=== PATIENT | female | born 1990 | race Caucasian/White ===

== ENCOUNTER 2021-09-28 18:47 | Observation (INO) | payer OTHER, SELFPAY ==
[2021-09-28 19:14] VITALS: BP 118/72; PULSE 109
[2021-09-28 19:16] VITALS: BP 106/54; PULSE 97
[2021-09-28 19:30] VITALS: BP 107/61; PULSE 90
[2021-09-28 19:47] VITALS: BP 116/55; PULSE 92
--- NOTE | 2021-09-30 14:21 | PM.OBTRLD ---
OB - Triage/Final Diagnosis Visit Information Comments/Additional reasons for admission: I have assessed the risk for this patient, Darlin Silvestre, and determined that she would benefit from observation care. Final Diagnosis (1) Decreased movement: Code(s): O36.8190 - Decreased movements, unspecified trimester, not applicable or unspecified Status: Acute
== END 2021-09-28 19:55 | disposition home or self-care (01) ==
PROVIDERS: Admitting Provider Obstetrics & Gynecology; Visit Provider Obstetrics & Gynecology
DX: O36.8130 Decreased fetal movements, third trimester, not applicable or unspecified (principal); Z3A.34 34 weeks gestation of pregnancy
CPT/HCPCS: G0378; G0379

== ENCOUNTER 2024-05-03 14:56 | Outpatient (CLI) | payer OTHER, SELFPAY ==
[2024-05-03 15:16] VITALS: BP 115/62; PULSE 108
[2024-05-03 15:30] VITALS: BP 115/63; PULSE 100
[2024-05-03 15:45] VITALS: BP 100/70; PULSE 97
[2024-05-03 15:46] LABS: Basophils Percent Auto 0.4 % (0.2-1.2); Eosinophils Absolute Auto 0.1 K/mm3 (0-0.3); Eosinophils Percent Auto 0.9 % (0-4.4); Hemoglobin 10.1 g/dL (12.0-15.0); Immature Granulocyte Absolute 0.24 K/mm3 (0.00-0.031); Immature Granulocyte Percent A 2.2 % (0-0.5); Lymphocytes Absolute Auto 1.99 K/mm3 (0.9-3.2); Lymphocytes Percent Auto 17.9 % (18.3-44.2); Mean Corpuscular HGB Conc 32.6 g/dl (32-36); Mean Corpuscular Hemoglobin 28.8 pg (26-34); Mean Corpuscular Volume 88.3 fl (80-100); Mean Platelet Volume 8.9 fl (7.4-10.4); Monocytes Absolute Auto 0.8 K/mm3 (0.1-0.6); Monocytes Percent Auto 7.1 % (2.6-8.5); Neutrophils Absolute Auto 7.9 K/mm3 (1.3-6.7); Neutrophils Percent Auto 71.5 % (45.5-73.1); Platelet Count Result 259 k/mm3 (150-375); Red Blood Count 3.51 M/mm3 (4.2-5.4); Red Cell Distribution Width 14.5 % (11.5-14.5); White Blood Count 11.1 K/mm3 (4.5-10.0)
[2024-05-03 16:00] VITALS: BP 106/69; PULSE 94; TEMP 37.7
[2024-05-03 16:03] LABS: Add Urine Microscopic? YES; Appearance Urine Cloudy (Clear); Bilirubin Urine Negative (Negative); Blood Urine Negative (Negative); Color Urine Yellow (Yellow); Glucose Urine UA Negative (Negative); Ketones Urine Negative (Negative); Leukocyte Esterase Ur Negative LEU/UL (Negative); Nitrate Urine Negative (Negative); Protein Urine Negative (Negative); Specific Grav Ur 1.013 (1.001-1.035)
[2024-05-03 16:11] LABS: Alanine Aminotransferase 13 U/L (6-35); Albumin Level 3.6 g/dL (3.5-5.1); Alkaline Phosphatase 141 U/L (38-126); Anion Gap 9 mmol/L (4-12); Aspartate Amino Transferase 21 U/L (14-36); Bilirubin,Total 0.4 mg/dL (0.2-1.3); Blood Urea Nitrogen 6 mg/dL (7-17); Calcium 9.2 mg/dL (8.4-10.2); Carbon Dioxide 20 mmol/L (22-30); Chloride 104 mmol/L (98-107); Estimated Glomerular Filt Rate > 60; Glucose 71 mg/dL (65-110); Potassium 3.5 mmol/L (3.4-5.0); Sodium 133 mmol/L (137-145)
--- OUTSIDE RECORDS SUMMARY | 2024-05-03 16:50 | XMS_ITS | Data Portability ---
Author Organization [employer] , [facility] Address [address] [place] [address] Assessment No assessment recorded. Plan of Treatment Reminders Order Date Submit Date Provider Last Modified By Organization Details Last Modified Time Details Appointments None recorded. Lab bacterial vaginosis + vaginitis panel, vaginal 2021 [facility], [address] [place] [address], [address], 2 16:56:09 streptococ cus group B, culture, unspecifie d specimen 2021 022 [facility] [facility], [address] [facility], [place], [address], 2 09:57:00 RPR (rapid plasma reagin), serum 2021 022 kmcalister 3 [employer] [facility], [address], [address], [place], [address], 2 10:43:52 glucose tolerance test, gestationa l, 1-hour 2021 022 [employer] [facility], [address], [address], [place], [address], 3 05:01:10 CBC w/ auto diff 2021 [employer] [facility], [address], [address], [place], [address], 3 05:01:11 obstetric screen + HIV, serum or blood 2021 [email or web address] [facility], [address] [place], [address], 09:52:47 Referral None recorded. Procedures None recorded. Surgeries None recorded. Imaging None recorded. Medication Orders Diflucan 150 mg tablet 2021 [email or web address] [id number], [address] [place], [place], [id number], 14:33:50 Zoloft 100 mg tablet 2021 PASCUAL [id number], [address], [place], [id number], 03:37:29 Patient TargetsNo targets recorded. Patient Instructions Encounter Date Encounter Id Patient Instructions Last Modified By Organization Details Last Modified Time 08/21/2021 [id number] learning about screening for gestational diabetes [email or web address] Not available 10/26/2021 21:38:09 10/09/2021 [id number] edinburgh depression scale* Not available 10/19/2021 12:55:20 10/30/2021 [id number] edinburgh depression scale* [id number] Not available 11/16/2021 17:13:05 Reason for Referral None Reported. Results Created Date Observation Date Name Description Value Unit Range Abnormal Flag Note LastModifiedBy Organization Detail LastModifiedTime 08/22/1908/25/2021 OBSTE TRIC PANEL W/FOU RTH GENER ATION HIV white blood cell count 12.2 thous and/u L 3.8-10 .8 high Not Available [facility] [address], [place], [address], 08/25/2021 15:06:10 08/22/19 22 08/25/2021 OBSTE TRIC PANEL W/FOU RTH GENER ATION HIV red blood cell count 3.51 joe on/uL 3.80-5 .10 low Not Available [facility] [address] [place], [address], 08/25/2021 15:06:10 08/22/19 22 08/25/2021 OBSTE TRIC PANEL W/FOU RTH GENER ATION HIV hemoglobin 10.3 g/dL 11.7-1 5.5 low Not Available [facility] [address], [address], 08/25/2021 15:06:10 08/22/19 22 08/25/2021 OBSTE TRIC PANEL W/FOU RTH GENER ATION HIV hematocrit 31.5 % 35.0-4 5.0 low Not Available [facility] [address], [address], 08/25/2021 15:06:10 08/22/19 22 08/25/2021 OBSTE TRIC PANEL W/FOU RTH GENER ATION HIV MCV 89.7 fL 80.0-1 00.0 normal Not Available [facility] [address], [address], 08/25/2021 15:06:10 08/22/19 22 08/25/2021 OBSTE TRIC PANEL W/FOU RTH GENER ATION HIV MCH 29.3 pg 27.0-3 3.0 normal Not Available [facility] [address], [address], 08/25/2021 15:06:10 08/22/19 22 08/25/2021 OBSTE TRIC PANEL W/FOU RTH GENER ATION HIV MCHC 32.7 g/dL 32.0-3 6.0 normal Not Available [facility] [address], [address], 08/25/2021 15:06:10 08/22/19 22 08/25/2021 OBSTE TRIC PANEL W/FOU RTH GENER ATION HIV RDW 11.8 % 11.0-1 5.0 normal Not Available [address], [address], 08/25/2021 15:06:10 08/22/19 22 08/25/2021 OBSTE TRIC PANEL W/FOU RTH GENER ATION HIV platelet count 231 thous and/u L 140-40 0 normal Not Available [address], [address], 08/25/2021 15:06:10 08/22/19 22 08/25/2021 OBSTE TRIC PANEL W/FOU RTH GENER ATION HIV MPV 9.0 fL 7.5-12 .5 normal Not Available [address], [address], 08/25/2021 15:06:10 08/22/19 22 08/25/2021 OBSTE TRIC PANEL W/FOU RTH GENER ATION HIV absolute neutrophils 9443 cells /uL 1500-7 800 high Not Available [address], [address], 08/25/2021 15:06:10 08/22/19 22 08/25/2021 OBSTE TRIC PANEL W/FOU RTH GENER ATION HIV absolute lymphocytes 1854 cells /uL 850-39 00 normal Not Available [address], [address], 08/25/2021 15:06:10 08/22/19 22 08/25/2021 OBSTE TRIC PANEL W/FOU RTH GENER ATION HIV absolute monocytes 695 cells /uL 200-95 0 normal Not Available [address], [address], 08/25/2021 15:06:10 08/22/19 22 08/25/2021 OBSTE TRIC PANEL W/FOU RTH GENER ATION HIV absolute eosinophils 159 cells /uL 15-500 normal Not Available [facility] [address], [place], [address], 08/25/2021 15:06:10 08/22/19 22 08/25/2021 OBSTE TRIC PANEL W/FOU RTH GENER ATION HIV absolute basophils 49 cells /uL 0-200 normal Not Available [facility] [address] [address] [place], [address], 08/25/2021 15:06:10 08/22/19 22 08/25/2021 OBSTE TRIC PANEL W/FOU RTH GENER ATION HIV neutrophils 77.4 % normal Not Available [facility] [address] [address] [place], [address], 08/25/2021 15:06:10 08/22/19 22 08/25/2021 OBSTE TRIC PANEL W/FOU RTH GENER ATION HIV lymphocytes 15.2 % normal Not Available [facility] [address] [address] [place], [address], 08/25/2021 15:06:10 08/22/19 22 08/25/2021 OBSTE TRIC PANEL W/FOU RTH GENER ATION HIV monocytes 5.7 % normal Not Available [facility] [address] [address] [place], [address], 08/25/2021 15:06:10 08/22/19 22 08/25/2021 OBSTE TRIC PANEL W/FOU RTH GENER ATION HIV eosinophils 1.3 % normal Not Available [facility] [address] [address] [place], [address], 08/25/2021 15:06:10 08/22/19 22 08/25/2021 OBSTE TRIC PANEL W/FOU RTH GENER ATION HIV basophils 0.4 % normal Not Available [facility] [address] [address] [place], [address], 08/25/2021 15:06:10 08/22/19 22 08/25/2021 OBSTE TRIC PANEL W/FOU RTH GENER ATION HIV antibody screen, RBC w/refl id, titer and Ag NO ANTIBO DIES DETECT ED normal Refer ence range No antib odies detec yamil This assay is a scree liz test for the detec tion of red blood cell antib odies . The test is not to be used for pretr ansfu doron scree liz or for the medic al manag ement of an alloi mmuni zed pregn tracy. Not Available [address] [address] [place], [address], 08/25/2021 15:06:10 08/22/19 22 08/25/2021 OBSTE TRIC PANEL W/FOU RTH GENER ATION HIV ABO group O Not Available [address] [address] [place], [address], 08/25/2021 15:06:10 08/22/19 22 08/25/2021 OBSTE TRIC PANEL W/FOU RTH GENER ATION HIV Rh type RH(D) POSITI VE For addit ional infor ulises kathleen e refer to http: //[facility] loving.Que stDia gnost ics.c om/fa q/FAQ 111 (This link is being provi ded for infor aliya cyr/ peg barnes purpo ses only. ) Not Available [address] [address] [place], [address], 08/25/2021 15:06:10 08/22/19 22 08/25/2021 OBSTE TRIC PANEL W/FOU RTH GENER ATION HIV RPR (DX) w/refl titer and confirmatory testing NON-RE ACTIVE non-re active normal Not Available [facility] [address] [address] [place], [address], 08/25/2021 15:06:10 08/22/19 22 08/25/2021 OBSTE TRIC PANEL W/FOU RTH GENER ATION HIV hepatitis B surface antigen NON-RE ACTIVE non-re active normal Not Available [facility] [address] [address] [place], [address], 08/25/2021 15:06:10 08/22/19 22 08/25/2021 OBSTE TRIC PANEL W/FOU RTH GENER ATION HIV rubella Ab (IgG), immune status 2.54 index normal Index Inter preta tion ----- ----- ----- ---- <0.90 Not consi stent with immun ity 0.90- 0.99 Equiv ocal > or = 1.00 Consi stent with immun ity The prese nce of rubel la IgG antib ryan sugge sts immun izati on or past or curre nt infec tion with rubel la virus . Not Available [employer] [facility] [address], [place], [address], 08/25/2021 15:06:10 08/22/19 22 08/25/2021 OBSTE TRIC PANEL W/FOU RTH GENER ATION HIV HIV Ag/Ab, 4TH gen NON-RE ACTIVE non-re active normal HIV-1 antig en and HIV-1 /HIV- 2 antib odies were not detec yamil. There is no labor atory evide nce of HIV infec tion. PLEAS E NOTE: This infor matio n has been discl osed to you from recor ds whose confi denti ality may be prote cted by state law. If your state requi res such prote ction , then the state law prohi bits you from [facility] discl osure of the infor matio n witho ut the speci fic writt en conse nt of the perso n to whom it perta ins, or as other mercado permi tted by law. A gener al autho rizat ion for the relea se of medic al or other infor matio n is NOT suffi cient for this purpo se. For addit ional infor matio n pleas e refer to http: //[facility]ers[facility] stdia gnost ics.c om/fa q/FAQ 106 (This link is being provi ded for infor matio nal/ educa jeff l purpo ses only. ) The perfo rmanc e of this assay has not been clini beth valid ated in patie nts less than 2 years old. Not Available [facility] [address] [address] [place], [address], 08/25/2021 15:06:10 08/22/19 22 08/25/2021 GLUCO SE, GESTA JEFF L SCREE N (50G) -135 CUTOF F glucose, gestational screen (50g)-135 cutoff 74 mg/dL <135 normal Not Available [facility] [address], [place], [address], 08/25/2021 15:06:11 10/10/19 22 10/12/2021 STREP TOCOC CUS, GROUP B CULTU RE streptococcu s, group B culture SEE NOTE STREP TOCOC CUS, GROUP B CULTU RE Micro Numbe r: [id number] Test Statu s: Final Speci men Sourc e: Vagin al/an orect al Speci men Quali ty: Adequ ate Resul t: No group B Strep tococ cus isola yamil Note per CDC guide lines optim al recov jer is achie grecia by swabb ing both the lower vagin a and rectu m (thro ugh the anal sphin cter) . Not Available [facility] [address] [address] , [place], [address], 10/12/2021 09:57:00 10/10/19 22 10/12/2021 VAGIN ITIS PANEL bacterial vaginosis BV neg negati ve normal Not Available [address], [address], 10/12/2021 16:56:09 10/10/19 22 10/12/2021 VAGIN ITIS PANEL brent species C. spp neg negati ve normal Not Available [address], [address], 10/12/2021 16:56:09 10/10/19 22 10/12/2021 VAGIN ITIS PANEL brent glabrata C. gla neg negati ve normal Not Available [address], [place], [address], 10/12/2021 16:56:09 10/10/19 22 10/12/2021 VAGIN ITIS PANEL trichomonas vaginalis CV/TV TRICH neg negati ve normal Not Available [facility] [address] [address] [place], [address], 10/12/2021 16:56:09 10/14/19 22 10/13/2021 CBC WITH DIFF WBC 12.1 x10'3 /uL 4.5-11 .0 high Not Available [facility] (Lab) [place], [address], 10/13/2021 20:26:01 10/14/19 22 10/13/2021 CBC WITH DIFF RBC 3.54 x10'6 /uL 4.20-5 .40 low Not Available [facility] (Lab) [address] [facility], [place], [address], 10/13/2021 20:26:01 10/14/19 22 10/13/2021 CBC WITH DIFF hemoglobin 10.4 g/dL 12.0-1 6.0 low Not Available [facility] (Lab) [address] [facility], [place], [address], 10/13/2021 20:26:01 10/14/19 22 10/13/2021 CBC WITH DIFF hematocrit 32.0 % 38.0-4 8.0 low Not Available [facility] (Lab) [place], [address], 10/13/2021 20:26:01 10/14/19 22 10/13/2021 CBC WITH DIFF MCV 90.4 fL 81.0-9 9.0 Not Available [facility] (Lab) [place], [address], 10/13/2021 20:26:01 10/14/19 22 10/13/2021 CBC WITH DIFF MCH 29.4 pg 27.0-3 1.0 Not Available [facility] (Lab) [address] [facility], [place], [address], 10/13/2021 20:26:01 10/14/19 22 10/13/2021 CBC WITH DIFF MCHC 32.5 g/dL 32.0-3 6.0 Not Available [facility] (Lab) [address] [facility], [place], [address], 10/13/2021 20:26:01 10/14/19 22 10/13/2021 CBC WITH DIFF RDW 13.5 % 11.5-1 4.5 Not Available [facility] (Lab) [address] [facility], [place], [address], 10/13/2021 20:26:01 10/14/19 22 10/13/2021 CBC WITH DIFF platelet count 241 x10'3 /uL 130-40 0 Not Available [facility] (Lab) [address] [facility], [place], [address], 10/13/2021 20:26:01 10/14/19 22 10/13/2021 CBC WITH DIFF MPV 9.2 fL 9.3-12 .2 low Not Available [facility] (Lab) [address] [facility], [place], [address], 10/13/2021 20:26:01 10/14/19 22 10/13/2021 CBC WITH DIFF diff type AUTOMA YAMIL DIFFER ENTIAL Not Available [facility] (Lab) [address] [facility], [place], [address], 10/13/2021 20:26:01 10/14/19 22 10/13/2021 CBC WITH DIFF neutrophils 68.4 % Not Available [facility] (Lab) [address], [place], [address], 10/13/2021 20:26:01 10/14/19 22 10/13/2021 CBC WITH DIFF lymphocytes 19.4 % Not Available [facility] (Lab) [address], [place], [address], 10/13/2021 20:26:01 10/14/19 22 10/13/2021 CBC WITH DIFF monocytes 7.6 % Not Available [facility] (Lab) [address], [place], [address], 10/13/2021 20:26:01 10/14/19 22 10/13/2021 CBC WITH DIFF eosinophils 1.7 % Not Available [facility] (Lab) [address], [place], [address], 10/13/2021 20:26:01 10/14/19 22 10/13/2021 CBC WITH DIFF basophils 0.5 % Not Available [facility] (Lab) [address], [place], [address], 10/13/2021 20:26:01 10/14/19 22 10/13/2021 CBC WITH DIFF immature granulocytes 2.4 % Not Available [facility] (Lab) [address], [place], [address], 10/13/2021 20:26:01 10/14/19 22 10/13/2021 CBC WITH DIFF abs. neutrophils 8.26 x10'3 /uL 1.80-7 .70 high Not Available [facility] (Lab) [address], [place], [address], 10/13/2021 20:26:01 10/14/19 22 10/13/2021 CBC WITH DIFF abs. lymphocytes 2.34 x10'3 /uL 1.00-4 .80 Not Available [facility] (Lab) [place], [address], 10/13/2021 20:26:01 10/14/19 22 10/13/2021 CBC WITH DIFF abs. monocytes 0.92 x10'3 /uL 0.24-0 .86 high Not Available [facility] (Lab) [place], [address], 10/13/2021 20:26:01 10/14/19 22 10/13/2021 CBC WITH DIFF abs. eosinophils 0.21 x10'3 /uL 0.04-0 .36 Not Available [facility] (Lab) [address], [place], [address], 10/13/2021 20:26:01 10/14/19 22 10/13/2021 CBC WITH DIFF abs. basophils 0.06 x10'3 /uL 0.01-0 .08 Not Available [facility] ([place]) [place], [address], 10/13/2021 20:26:01 10/14/19 22 10/13/2021 CBC WITH DIFF abs. immature grans 0.29 x10'3 /uL 0.00-0 .49 Not Available [facility] (Lab) [place], [address], 10/13/2021 20:26:01 10/14/19 22 10/13/2021 COMPR EHENS CANDIDO METAB OLIC PANEL glucose 70 mg/dL 70-99 Not Available [facility] (Lab) [address] [facility], [place], [address], 10/13/2021 20:46:57 10/14/19 22 10/13/2021 COMPR EHENS CANDIDO METAB OLIC PANEL BUN 7 mg/dL 7-18 Not Available [facility] (Lab) [place], [address], 10/13/2021 20:46:57 10/14/19 22 10/13/2021 COMPR EHENS CANDIDO METAB OLIC PANEL creatinine 0.43 mg/dL 0.55-1 .02 low Not Available [facility] (Lab) [place], [address], 10/13/2021 20:46:57 10/14/19 22 10/13/2021 COMPR EHENS CANDIDO METAB OLIC PANEL sodium 136 mmol/ L 136-14 5 Not Available [facility] (Lab) [address] [facility], [place], [address], 10/13/2021 20:46:57 10/14/19 22 10/13/2021 COMPR EHENS CANDIDO METAB OLIC PANEL potassium 3.8 mmol/ L 3.5-5. 1 Not Available [facility] (Lab) [place], [address], 10/13/2021 20:46:57 10/14/19 22 10/13/2021 COMPR EHENS CANDIDO METAB OLIC PANEL chloride 105 mmol/ L 100-10 8 Not Available [facility] (Lab) [place], [address], 10/13/2021 20:46:57 10/14/19 22 10/13/2021 COMPR EHENS CANDIDO METAB OLIC PANEL total CO2 24.7 mmol/ L 21-32 Not Available [facility] (Lab) [address] [facility], [place], [address], 10/13/2021 20:46:57 10/14/19 22 10/13/2021 COMPR EHENS CANDIDO METAB OLIC PANEL calcium 10.0 mg/dL 8.5-10 .1 Not Available [facility] (Lab) [address] [facility], [place], [address], 10/13/2021 20:46:57 10/14/19 22 10/13/2021 COMPR EHENS CANDIDO METAB OLIC PANEL total bilirubin 0.3 mg/dL 0.2-1. 2 THIS ASSAY IS NOT RECOM AMEENA D FOR PATIE NTS UNDER GOING TREAT MENT WITH ELTRO MBOPA G DUE TO THE POTEN TIAL FOR FALSE LY ELEVA YAMIL RESUL TS. Not Available [facility] (Lab) [address], [place], [address], 10/13/2021 20:46:57 10/14/19 22 10/13/2021 COMPR EHENS CANDIDO METAB OLIC PANEL total protein 6.8 g/dL 6.4-8. 2 Not Available [facility] (Lab) [address] [facility], [place], [address], 10/13/2021 20:46:57 10/14/19 22 10/13/2021 COMPR EHENS CANDIDO METAB OLIC PANEL albumin 2.9 g/dL 3.4-5. 0 low Not Available [facility] (Lab) [address] [facility], [place], [address], 10/13/2021 20:46:57 10/14/19 22 10/13/2021 COMPR EHENS CANDIDO METAB OLIC PANEL AST 22 U/L 15-37 Not Available [facility] (Lab) [address] [facility], [place], [address], 10/13/2021 20:46:57 10/14/19 22 10/13/2021 COMPR EHENS CANDIDO METAB OLIC PANEL ALT 22 U/L 14-55 Not Available [facility] (Lab) [place], [address], 10/13/2021 20:46:57 10/14/19 22 10/13/2021 COMPR EHENS CANDIDO METAB OLIC PANEL alk phosphatase 158 U/L 50-136 high Not Available [facility] (Lab) [place], [address], 10/13/2021 20:46:57 10/14/19 22 10/13/2021 COMPR EHENS CANDIDO METAB OLIC PANEL anion gap 6.3 mmol/ L 5-15 Not Available [facility] (Lab) [place], [address], 10/13/2021 20:46:57 10/14/19 22 10/13/2021 COMPR EHENS CANDIDO METAB OLIC PANEL BUN creatinine ratio 16.4 6-26 Not Available [facility] (Lab) [place], [address], 10/13/2021 20:46:57 10/14/19 22 10/13/2021 COMPR EHENS CANDIDO METAB OLIC PANEL A:g ratio 0.7 ratio 1.0-2. 0 low Not Available [facility] ([place]) [place], [address], 10/13/2021 20:46:57 10/14/19 22 10/13/2021 COMPR EHENS CANDIDO METAB OLIC PANEL est GFR >90 mL/mi n/1.7 3_M2 >90 NOTE: eGFR is not calcu lated for patie nts <18 years of age. This is an estim ated GFR calcu latio n using the new CKD EPI creat inine equat ion witho ut race and so does not requi re a corre ction facto r for race. This estim ated GFR shoul d not be used for calcu latin g drug doses . Not Available [facility] (Lab) [address], [place], [address], 10/13/2021 20:46:57 10/14/1910/13/2021 URIC ACID uric acid 3.5 mg/dL 2.6-6. 0 Not Available [facility] ([place]) [place], [address], 10/13/2021 20:47:00 10/14/1910/13/2021 TYPE AND SCREE N ABO/Rh(D) O POSITI VE Not Available [facility] (Lab) [address] [facility], [place], [address], 10/13/2021 21:28:35 10/14/19 22 10/13/2021 TYPE AND SCREE N antibody screen NEGATI VE Not Available [facility] (Lab) [address], [place], [address], 10/13/2021 21:28:35 10/14/19 22 10/13/2021 TYPE AND SCREE N xm expiration 2021,2 359 Not Available [facility] (Lab) [place], [address], 10/13/2021 21:28:35 10/14/19 22 10/13/2021 UA REFLE X TO CULTU RE specimen type URINE CLEAN CATCH Not Available [facility] ([place]) [place], [address], 10/13/2021 21:38:54 10/14/19 22 10/13/2021 UA REFLE X TO CULTU RE color COLORL ESS Not Available [facility] (Lab) [place], [address], 10/13/2021 21:38:54 10/14/19 22 10/13/2021 UA REFLE X TO CULTU RE clarity CLEAR Not Available [facility] (Lab) [place], [address], 10/13/2021 21:38:54 10/14/19 22 10/13/2021 UA REFLE X TO CULTU RE specific gravity 1.006 1.001- 1.030 Not Available [facility] (Lab) [place], [address], 10/13/2021 21:38:54 10/14/19 22 10/13/2021 UA REFLE X TO CULTU RE pH, urine 6.5 5.0-9. 0 Not Available [facility] (Lab) [place], [address], 10/13/2021 21:38:54 10/14/19 22 10/13/2021 UA REFLE X TO CULTU RE leukocytes NEGATI VE neg Not Available [facility] (Lab) [place], [address], 10/13/2021 21:38:54 10/14/19 22 10/13/2021 UA REFLE X TO CULTU RE nitrite NEGATI VE neg Not Available [facility] (Lab) [place], [address], 10/13/2021 21:38:54 10/14/19 22 10/13/2021 UA REFLE X TO CULTU RE protein NEGATI VE mg/dL <30 Not Available [facility] (Lab) [place], [address], 10/13/2021 21:38:54 10/14/19 22 10/13/2021 UA REFLE X TO CULTU RE glucose NORMAL mg/dL norm Not Available [facility] (Lab) [place], [address], 10/13/2021 21:38:54 10/14/19 22 10/13/2021 UA REFLE X TO CULTU RE ketone NEGATI VE mg/dL neg Not Available [facility] (Lab) [place], [address], 10/13/2021 21:38:54 10/14/19 22 10/13/2021 UA REFLE X TO CULTU RE urobilinogen NORMAL mg/dL norm Not Available [facility] (Lab) [place], [address], 10/13/2021 21:38:54 10/14/19 22 10/13/2021 UA REFLE X TO CULTU RE bilirubin NEGATI VE mg/dL neg Not Available [facility] (Lab) [place], [address], 10/13/2021 21:38:54 10/14/19 22 10/13/2021 UA REFLE X TO CULTU RE blood NEGATI VE neg Not Available [facility] (Lab) [place], [address], 10/13/2021 21:38:54 10/14/19 22 10/13/2021 UA REFLE X TO CULTU RE culture indicated CULTUR E IS NOT INDICA YAMIL Not Available [facility] (Lab) [address] [facility], [place], [address], 10/13/2021 21:38:54 10/14/19 22 10/13/2021 UA REFLE X TO CULTU RE mucous RARE /lpf Not Available [facility] (Lab) [address] [facility], [place], [address], 10/13/2021 21:38:54 10/14/19 22 10/13/2021 UA REFLE X TO CULTU RE WBC 1 /hpf <6 Not Available [facility] (Lab) [address] [facility], [place], [address], 10/13/2021 21:38:54 10/14/19 22 10/13/2021 UA REFLE X TO CULTU RE RBC 1 /hpf <6 Not Available [facility] (Lab) [address] [facility], [place], [address], 10/13/2021 21:38:54 10/14/19 22 10/13/2021 UA REFLE X TO CULTU RE squamous epithelial RARE /hpf Not Available [facility] (Lab) [address] [facility], [place], [address], 10/13/2021 21:38:54 10/14/19 22 10/13/2021 DRUGS OF ABUSE PANEL , URINE amphetamines , urine NEGATI VE neg Not Available [facility] (Lab) [place], [address], 10/13/2021 21:44:54 10/14/19 22 10/13/2021 DRUGS OF ABUSE PANEL , URINE barbituates, urine NEGATI VE neg Not Available [facility] (Lab) [address] [place], [address], 10/13/2021 21:44:54 10/14/19 22 10/13/2021 DRUGS OF ABUSE PANEL , URINE benzodiazapi luis, urine NEGATI VE neg Not Available [facility] (Lab) [place], [address], 10/13/2021 21:44:54 10/14/19 22 10/13/2021 DRUGS OF ABUSE PANEL , URINE cannabinoids /THC, urine NEGATI VE neg Not Available [facility] (Lab) [place], [address], 10/13/2021 21:44:54 10/14/19 22 10/13/2021 DRUGS OF ABUSE PANEL , URINE cocaine, urine NEGATI VE neg Not Available [facility] (Lab) [place], [address], 10/13/2021 21:44:54 10/14/19 22 10/13/2021 DRUGS OF ABUSE PANEL , URINE methadone, urine NEGATI VE neg Not Available [facility] (Lab) One [facility], [place], [address], 10/13/2021 21:44:54 10/14/19 22 10/13/2021 DRUGS OF ABUSE PANEL , URINE opiates, urine NEGATI VE neg Not Available [facility] ([place]) [place], [address], 10/13/2021 21:44:54 10/14/19 22 10/13/2021 DRUGS OF ABUSE PANEL , URINE phencyclidin es, urine NEGATI VE neg NOTE: RESUL TS OF THIS DRUG SCREE N SHOUL D BE USED FOR MEDIC AL PURPO SES ONLY AND NOT FOR LEGAL OR EMPLO YMENT PURPO SES. POSIT CANDIDO RESUL TS ARE NOT CONFI RMED. MEDIC ATION S CONTA INING EPHED RINE MAY CAUSE FALSE POSIT CANDIDO AMPHE TAMIN E CALL [phone], LAB, TO REQUE ST CONFI RMATI ON TESTI NG. IF CREAT ININE IS <40 mg/dL . RECOL LECTI ON IS YANELY USD. AMPHE TAMIN E- 500 NG/ML EBONI TURAT E- 200 NG/ML BENZO DIAZE PINES - 200 NG/ML THC- 50 NG/ML COCAI NE- 150 NG/ML METHA DONE- 300 NG/ML OPIAT E- 300 MG/ML PCP- 25 NG/ML Not Available [facility] (Lab) [place], [address], 10/13/2021 21:44:54 10/14/19 22 10/13/2021 DRUGS OF ABUSE PANEL , URINE creatinine, urine <13.0 mg/dL 28-217 low Not Available [facility] (Lab) [place], [address], 10/13/2021 21:44:54 10/17/19 22 10/16/2021 UA REFLE X TO CULTU RE specimen type URINE CLEAN CATCH Not Available [facility] (Lab) [place], [address], 10/17/2021 00:12:06 10/17/19 22 10/16/2021 UA REFLE X TO CULTU RE color COLORL ESS Not Available [facility] (Lab) [place], [address], 10/17/2021 00:12:06 10/17/19 22 10/16/2021 UA REFLE X TO CULTU RE clarity CLEAR Not Available [facility] (Lab) [place], [address], 10/17/2021 00:12:06 10/17/19 22 10/16/2021 UA REFLE X TO CULTU RE specific gravity 1.007 1.001- 1.030 Not Available [facility] (Lab) [place], [address], 10/17/2021 00:12:06 10/17/19 22 10/16/2021 UA REFLE X TO CULTU RE pH, urine 6.5 5.0-9. 0 Not Available [facility] (Lab) [place], [address], 10/17/2021 00:12:06 10/17/19 22 10/16/2021 UA REFLE X TO CULTU RE leukocytes NEGATI VE neg Not Available [facility] (Lab) [place], [address], 10/17/2021 00:12:06 10/17/19 22 10/16/2021 UA REFLE X TO CULTU RE nitrite NEGATI VE neg Not Available [facility] (Lab) [place], [address], 10/17/2021 00:12:06 10/17/19 22 10/16/2021 UA REFLE X TO CULTU RE protein NEGATI VE mg/dL <30 Not Available [facility] (Lab) [place], [address], 10/17/2021 00:12:06 10/17/19 22 10/16/2021 UA REFLE X TO CULTU RE glucose NORMAL mg/dL norm Not Available [facility] (Lab) [place], [address], 10/17/2021 00:12:06 10/17/19 22 10/16/2021 UA REFLE X TO CULTU RE ketone NEGATI VE mg/dL neg Not Available [facility] (Lab) [address] [facility], [place], [address], 10/17/2021 00:12:06 10/17/19 22 10/16/2021 UA REFLE X TO CULTU RE urobilinogen NORMAL mg/dL norm Not Available [facility] (Lab) [address] [facility], [place], [address], 10/17/2021 00:12:06 10/17/19 22 10/16/2021 UA REFLE X TO CULTU RE bilirubin NEGATI VE mg/dL neg Not Available [facility] (Lab) [address] [facility], [place], [address], 10/17/2021 00:12:06 10/17/19 22 10/16/2021 UA REFLE X TO CULTU RE blood NEGATI VE neg Not Available [facility] (Lab) [address] [facility], [place], [address], 10/17/2021 00:12:06 10/17/19 22 10/16/2021 UA REFLE X TO CULTU RE culture indicated CULTUR E IS NOT INDICA YAMIL Not Available [facility] (Lab) [place], [address], 10/17/2021 00:12:06 10/17/19 22 10/16/2021 UA REFLE X TO CULTU RE WBC <1 /hpf <6 Not Available [facility] (Lab) [place], [address], 10/17/2021 00:12:06 10/17/19 22 10/16/2021 UA REFLE X TO CULTU RE RBC 2 /hpf <6 Not Available [facility] (Lab) [address] [facility], [place], [address], 10/17/2021 00:12:06 10/17/19 22 10/16/2021 UA REFLE X TO CULTU RE squamous epithelial RARE /hpf Not Available [facility] (Lab) [place], [address], 10/17/2021 00:12:06 10/17/19 22 10/16/2021 DRUGS OF ABUSE PANEL , URINE amphetamines , urine NEGATI VE neg Not Available [facility] (Lab) [place], [address], 10/17/2021 00:24:41 10/17/19 22 10/16/2021 DRUGS OF ABUSE PANEL , URINE barbituates, urine NEGATI VE neg Not Available [facility] (Lab) [address], [place], [address], 10/17/2021 00:24:41 10/17/19 22 10/16/2021 DRUGS OF ABUSE PANEL , URINE benzodiazapi luis, urine NEGATI VE neg Not Available [facility] (Lab) [place], [address], 10/17/2021 00:24:41 10/17/19 22 10/16/2021 DRUGS OF ABUSE PANEL , URINE cannabinoids /THC, urine NEGATI VE neg Not Available [facility] (Lab) [place], [address], 10/17/2021 00:24:41 10/17/19 22 10/16/2021 DRUGS OF ABUSE PANEL , URINE cocaine, urine NEGATI VE neg Not Available [facility] (Lab) [place], [address], 10/17/2021 00:24:41 10/17/19 22 10/16/2021 DRUGS OF ABUSE PANEL , URINE methadone, urine NEGATI VE neg Not Available [facility] (Lab) [place], [address], 10/17/2021 00:24:41 10/17/19 22 10/16/2021 DRUGS OF ABUSE PANEL , URINE opiates, urine NEGATI VE neg Not Available [facility] ([place]) [place], [address], 10/17/2021 00:24:41 10/17/19 22 10/16/2021 DRUGS OF ABUSE PANEL , URINE phencyclidin es, urine NEGATI VE neg NOTE: RESUL TS OF THIS DRUG SCREE N SHOUL D BE USED FOR MEDIC AL PURPO SES ONLY AND NOT FOR LEGAL OR EMPLO YMENT PURPO SES. POSIT CANDIDO RESUL TS ARE NOT CONFI RMED. MEDIC ATION S CONTA INING EPHED RINE MAY CAUSE FALSE POSIT CANDIDO AMPHE TAMIN E CALL [phone], LAB, TO REQUE ST CONFI RMATI ON TESTI NG. IF CREAT ININE IS <40 mg/dL . RECOL LECTI ON IS SUGALIX STED. AMPHE TAMIN E- 500 NG/ML EBONI TURAT E- 200 NG/ML BENZO DIAZE PINES - 200 NG/ML THC- 50 NG/ML COCAI NE- 150 NG/ML METHA DONE- 300 NG/ML OPIAT E- 300 MG/ML PCP- 25 NG/ML Not Available [facility] (Lab) [place], [address], 10/17/2021 00:24:41 10/17/19 22 10/16/2021 DRUGS OF ABUSE PANEL , URINE creatinine, urine 18.5 mg/dL 28-217 low Not Available [facility] (Lab) [place], [address], 10/17/2021 00:24:41 10/18/19 22 10/17/2021 CBC WITH DIFF WBC 13.5 x10'3 /uL 4.5-11 .0 high Not Available [facility] (Lab) [address], [place], [address], 10/17/2021 02:14:47 10/18/19 22 10/17/2021 CBC WITH DIFF RBC 3.18 x10'6 /uL 4.20-5 .40 low Not Available [facility] (Lab) [address], [place], [address], 10/17/2021 02:14:47 10/18/19 22 10/17/2021 CBC WITH DIFF hemoglobin 9.6 g/dL 12.0-1 6.0 low Not Available [facility] (Lab) [address], [place], [address], 10/17/2021 02:14:47 10/18/19 22 10/17/2021 CBC WITH DIFF hematocrit 29.2 % 38.0-4 8.0 low Not Available [facility] (Lab) [address], [place], [address], 10/17/2021 02:14:47 10/18/1910/17/2021 CBC WITH DIFF MCV 91.8 fL 81.0-9 9.0 Not Available [facility] (Lab) [address], [place], [address], 10/17/2021 02:14:47 10/18/1910/17/2021 CBC WITH DIFF MCH 30.2 pg 27.0-3 1.0 Not Available [facility] (Lab) [address], [place], [address], 10/17/2021 02:14:47 10/18/19 22 10/17/2021 CBC WITH DIFF MCHC 32.9 g/dL 32.0-3 6.0 Not Available [facility] (Lab) [address], [place], [address], 10/17/2021 02:14:47 10/18/19 22 10/17/2021 CBC WITH DIFF RDW 14.0 % 11.5-1 4.5 Not Available [facility] (Lab) [address], [place], [address], 10/17/2021 02:14:47 10/18/19 22 10/17/2021 CBC WITH DIFF platelet count 242 x10'3 /uL 130-40 0 Not Available [facility] (Lab) [address] [facility], [place], [address], 10/17/2021 02:14:47 10/18/19 22 10/17/2021 CBC WITH DIFF MPV 9.1 fL 9.3-12 .2 low Not Available [facility] (Lab) [address] [facility], [place], [address], 10/17/2021 02:14:47 10/18/19 22 10/17/2021 CBC WITH DIFF diff type AUTOMA YAMIL DIFFER ENTIAL Not Available [facility] (Lab) [address] [facility], [place], [address], 10/17/2021 02:14:47 10/18/19 22 10/17/2021 CBC WITH DIFF neutrophils 63.4 % Not Available [facility] (Lab) [address] [facility], [place], [address], 10/17/2021 02:14:47 10/18/19 22 10/17/2021 CBC WITH DIFF lymphocytes 21.8 % Not Available [facility] (Lab) [address], [place], [address], 10/17/2021 02:14:47 10/18/19 22 10/17/2021 CBC WITH DIFF monocytes 8.1 % Not Available [facility] (Lab) [address], [place], [address], 10/17/2021 02:14:47 10/18/19 22 10/17/2021 CBC WITH DIFF eosinophils 2.1 % Not Available [facility] (Lab) [address], [place], [address], 10/17/2021 02:14:47 10/18/19 22 10/17/2021 CBC WITH DIFF basophils 0.6 % Not Available [facility] (Lab) [address], [place], [address], 10/17/2021 02:14:47 10/18/19 22 10/17/2021 CBC WITH DIFF immature granulocytes 4.0 % Not Available [facility] (Lab) [address], [place], [address], 10/17/2021 02:14:47 10/18/19 22 10/17/2021 CBC WITH DIFF abs. neutrophils 8.60 x10'3 /uL 1.80-7 .70 high Not Available [facility] (Lab) [address], [place], [address], 10/17/2021 02:14:47 10/18/19 22 10/17/2021 CBC WITH DIFF abs. lymphocytes 2.95 x10'3 /uL 1.00-4 .80 Not Available [facility] (Lab) [address], [place], [address], 10/17/2021 02:14:47 10/18/19 22 10/17/2021 CBC WITH DIFF abs. monocytes 1.09 x10'3 /uL 0.24-0 .86 high Not Available [facility] (Lab) [address] [facility], [place], [address], 10/17/2021 02:14:47 10/18/19 22 10/17/2021 CBC WITH DIFF abs. eosinophils 0.28 x10'3 /uL 0.04-0 .36 Not Available [facility] (Lab) [place], [address], 10/17/2021 02:14:47 10/18/19 22 10/17/2021 CBC WITH DIFF abs. basophils 0.08 x10'3 /uL 0.01-0 .08 Not Available [facility] (Lab) [address], [place], [address], 10/17/2021 02:14:47 10/18/19 22 10/17/2021 CBC WITH DIFF abs. immature grans 0.54 x10'3 /uL 0.00-0 .49 high Not Available [facility] (Lab) [address], [place], [address], 10/17/2021 02:14:47 10/18/19 22 10/17/2021 TYPE AND SCREE N ABO/Rh(D) O POSITI VE Not Available [facility] (Lab) [place], [address], 10/17/2021 02:59:40 10/18/1910/17/2021 TYPE AND SCREE N antibody screen NEGATI VE Not Available [facility] (Lab) [place], [address], 10/17/2021 02:59:40 10/18/19 22 10/17/2021 TYPE AND SCREE N xm expiration 2021,2 359 Not Available [facility] (Lab) [address], [place], [address], 10/17/2021 02:59:40 10/19/19 22 10/18/2021 HEMAG FIDENCIO WBC 16.8 x10'3 /uL 4.5-11 .0 high Not Available [facility] (Lab) [address], [place], [address], 10/18/2021 05:54:41 10/19/19 22 10/18/2021 HEMAG FIDENCIO RBC 2.95 x10'6 /uL 4.20-5 .40 low Not Available [facility] (Lab) [address], [place], [address], 10/18/2021 05:54:41 10/19/1910/18/2021 HEMAG FIDENCIO hemoglobin 8.8 g/dL 12.0-1 6.0 low Not Available [facility] (Lab) [address] [facility], [place], [address], 10/18/2021 05:54:41 10/19/1910/18/2021 HEMAG FIDENCIO hematocrit 27.2 % 38.0-4 8.0 low Not Available [facility] (Lab) [address], [place], [address], 10/18/2021 05:54:41 10/19/1910/18/2021 HEMAG FIDENCIO MCV 92.2 fL 81.0-9 9.0 Not Available [facility] (Lab) [address] [facility], [place], [address], 10/18/2021 05:54:41 10/19/19 22 10/18/2021 HEMAG FIDENCIO MCH 29.8 pg 27.0-3 1.0 Not Available [facility] (Lab) [address] [facility], [place], [address], 10/18/2021 05:54:41 10/19/19 22 10/18/2021 HEMAG FIDENCIO MCHC 32.4 g/dL 32.0-3 6.0 Not Available [facility] (Lab) [address] [facility], [place], [address], 10/18/2021 05:54:41 10/19/1910/18/2021 HEMAG FIDENCIO RDW 13.9 % 11.5-1 4.5 Not Available [facility] (Lab) [address] [facility], [place], [address], 10/18/2021 05:54:41 10/19/19 22 10/18/2021 HEMAG FIDENCIO platelet count 258 x10'3 /uL 130-40 0 Not Available [facility] (Lab) [address] [facility], [place], [address], 10/18/2021 05:54:41 10/19/19 22 10/18/2021 HEMAG FIDENCIO MPV 9.1 fL 9.3-12 .2 low Not Available [facility] (Lab) [place], [address], 10/18/2021 05:54:41 08/01/19 22 07/31/2021 US, obste tric, mater nal evalu ation + anato my, singl e gesta tion No observ ation record ed. [email or web address] [facility] [address] [place] [place], [address], 10/20/2021 17:43:46 09/04/19 22 09/03/2021 US, obste tric, mater nal evalu ation + anato my, singl e gesta tion No observ ation record ed. [email or web address] [facility] [address] [place], [address], 10/24/2021 12:30:49 10/10/19 22 09/24/2021 US, obste tric, limit ed No observ ation record ed. [email or web address]ee [address], [place], [address], 10/11/2021 17:04:13 Result Notes None recorded. Problems Name Problem SNOMED Code Status Onset Date Resolution Date Notes Provider Name and Address Organization Details Recorded Time Pregnanc y 31584448 Completed 202106/02/2022 Allison jaramillo, [employer] IV 3 15:34:48 Headache 78914885 Completed mag ox, tylenol and caffeine. Used to drink 8 cups of coffee daily. Allison jaramillo, [employer] [facility] 3 15:34:43 Anxiety 51936614 Completed zoloft 50mg/kerri y, increased to 100mg daily 10/09 increased to 200 daily in hospital. Allison jaramillo, [facility] IV 3 15:34:43 Pregnanc y 22072648 Completed 2021 Allison jaramillo, [employer] [facility] 3 15:34:43 Past pregnanc y history of section 796401733 Completed Allison jaramillo, [employer] IV 3 15:34:43 growth restrict ion 33473278 Completed HC 5% seen by [facility] no FU at this time Allison jaramillo, [employer] IV 3 15:34:43 Problem Notes None recorded. Procedures Surgical History Date Name Laterality Status Provider Name and Address Organization Details Recorded Time 09/04/19 Date of Last Pap Smear completed Nata Busby [employer] [facility] 05/07/2021 11:54:15 C Section completed Natabailey Busby [facility] [employer] [facility] IV 05/07/2021 11:54:28 Appendectomy completed Natabailey Busby [facility] [employer] [facility] IV 05/07/2021 11:54:28 D & C completed Natabailey Busby [facility] [employer] [facility] IV 05/07/2021 11:54:28 Removal of tonsils completed [facility] [employer] [facility] 05/07/2021 12:52:25 Imaging Results Imaging Date Name Status LastModified by Organiz ation Details LastModified Time 07/31/2021 US, obstetric, maternal evaluation + anatomy, single gestation completed [address] [facility] [address], [address], 10/20/2021 17:43:46 09/03/2021 US, obstetric, maternal evaluation + anatomy, single gestation completed [address] [facility] [address], [address], 10/24/2021 12:30:49 09/24/2021 US, obstetric, limited completed hadley Baxter [address] [facility], [place], [address], 10/11/2021 17:04:13 Procedure Notes None recorded. Medical Equipment None Reported. Allergies Allergen ID Allergen Name Allergen Category Reaction Reaction Severity Criticality Documentation Date Start Date Code Code System Note Provider Name and Address Organization Details Recorded Time 950894 codeine medicatio n Not available Not available Not available 05/07/2021 2670 RxNorm Not Available Not Available Not Available Medications Name Sig Start Date Stop Date Status Note LastModified by Organization Details LastModified Time ibuprofen 800 mg tablet active Not Available Not Available No t Available fluconazole 150 mg tablet 1 po today 10/30 completed Not Available Not Available Not Available promethazine 12.5 mg tablet 05/07 completed Not Available Not Available Not Available propranolol ER 60 mg capsule,24 hr,extended release 05/07 completed Not Available Not Available Not Available sertraline 100 mg tablet TAKE 1 TABLET BY MOUTH DAILY active Not Available Not Available No t Available oxycodone-palak taminophen 5 mg-325 mg tablet active Not Available Not Available Not Available propranolol 10 mg tablet 05/07 completed Not Available Not Available Not Available magnesium oxide 400 mg (241.3 mg magnesium) tablet TAKE 1 TABLET BY MOUTH EVERY DAY active Not Available Not Available No t Available metoclopramid e 5 mg tablet 05/07 completed Not Available Not Available Not Available sertraline 25 mg tablet 06/04 completed Not Available Not Available Not Available norethindrone (contraceptiv e) 0.35 mg tablet TAKE 1 TABLET BY MOUTH EVERY DAY active Not Available Not Available No t Available sertraline 50 mg tablet Take 1 tablet every day by oral route. 10/30 completed Not Available Not Available Not Available escitalopram 10 mg tablet 05/07 completed Not Available Not Available Not Available active Not Available Not Avai lable Not Available FeroSul 325 mg (65 mg iron) tablet active Not Available Not Available Not Available Lo Loestrin Fe 1 mg-10 mcg (24)/10 mcg (2) tablet 05/07 completed Not Available Not Available Not Available bupropion HCl XL 450 mg 24 hr tablet, extended release 05/07 completed Not Available Not Available Not Available Vitals Date Recorded Body height Body mass index (BMI) Body temperature Systolic blood pressure Diastolic blood pressure Provider Name and Address Organization Details Last Updated DateTime 2 160.02 cm 26 kg/m2 97 [degF] 114 mm[Hg] 68 mm[Hg] Asiya Ballard MA [employer] IV 2 11:11:18 Date Recorded Body weight Provider Name an d Address Organization Details Last Updated DateTime 08/21/2021 07262.16645 g IRAM BAEZ MD [address] [facility], [place], [address], [employer] [facility] 08/21/2021 12:03:40 Date Recorded Body height Body mass index (BMI) Body temperature Systolic blood pressure Diastolic blood pressure Provider Name and Address Organization Details Last Updated DateTime 09/24/2021 160.02 cm 27.6 kg/m2 93 [degF] 100 mm[Hg] 60 mm[Hg] Yasmine Cox MA - [facility] IV 2 16:19:00 Date Recorded Body weight Provider Name an d Address Organization Details Last Updated DateTime 09/24/2021 71302.25753 g Vanessa Welch, [facility] [address] [place], [address], [facility] [employer] [facility] IV 09/29/2021 08:16:17 Date Recorded Body height Body temperature Body mass index (BMI) Body weight Systolic blood pressure Diastolic blood pressure Provider Name and Address Organization Details Last Updated DateTime 2 160.02 cm 97 [degF] 28.5 kg/m2 52315.3 7157 g 114 mm[Hg] 58 mm[Hg] Asiya Ballard [facility] [employer] [facility] IV 2 13:12:41 Date Recorded Body height Body mass index (BMI) Body weight Systolic blood pressure Diastolic blood pressure Provider Name and Address Organization Details Last Updated DateTime 10/15/2021 160.02 cm 28.9 kg/m2 45623.55 631 g 108 mm[Hg] 60 mm[Hg] Allison Massey [facility] [employer] [facility] IV 2 12:32:04 Date Recorded Body height Body mass index (BMI) Body temperature Systolic blood pressure Diastolic blood pressure Provider Name and Address Organization Details Last Updated DateTime 2 160.02 cm 26 kg/m2 97 [degF] 110 mm[Hg] 58 mm[Hg] Asiya Ballard [facility] [employer] [facility] IV 2 14:37:36 Date Recorded Body weight Provider Name an d Address Organization Details Last Updated DateTime 10/30/2021 28727.56921 g Allison Cummins [facility] [employer] [facility] IV 06/02/2022 15:34:45 Social History Question Answer Notes LastModified by Organizat ion Details LastModified Time Tobacco Smoking Status Former Smoker Nata jaramillo, [facility] [employer] IV 05/07/2021 11:54:24 What Is Your Level Of Alcohol Consumption? None sharri Information not available 05/07/2021 Are You Blind Or Do You Have Difficulty Seeing? No Information not available 06/04/2021 Are You Deaf Or Do You Have Serious Difficulty Hearing? No Information not available 06/04/2021 Do You Or Have You Ever Used E-cigarettes Or Vape? Never Used Electronic Cigarettes Information not available 05/07/2021 What Is Your Relationship Status? Information not available 05/07/2021 Are You Sexually Active? Yes Information not available 05/07/2021 Do You Use Any Illicit Or Recreational Drugs? No [email or web address] Information not available 06/04/2021 Do You Or Have You Ever Used Any Other Forms Of Tobacco Or Nicotine? No Information not available 06/04/2021 Sex: Unknown Functional Status Question Answer Note LastModified by Organizat ion Details LastModified Time What is your exercise level? Occasional Information not available 05/07/2021 Mental Status None recorded. Family History Relationship Description Onset Age of this Age Resolved Age Notes LastModified by Organization Details LastModified Time Maternal Grandmother Malignant neoplastic disease Not available 2021 11:54:06 Paternal Grandfather Malignant neoplastic disease Not available 2021 11:54:06 Mother Malignant neoplastic disease Not available 2021 11:54:06 Mother Malignant tumor of breast Not available 2021 11:54:06 Mother Malignant neoplasm of uterus Not available 2021 11:54:06 Unspecified Relation Malignant tumor of breast Not available 2021 11:54:06 Unspecified Relation Malignant neoplasm of uterus Not available 2021 11:54:06 Paternal Grandmother Malignant neoplastic disease Not available 2021 11:54:06 Sister Depressive disorder Not available 2021 11:54:06 Medical History Condition Response Depression Y Anxiety Disorder Y Gynecological History Statement/Question Response Flow Heavy Frequency of Cycle (Q days) 28 Date of LMP 01/05/2021 HPV Vaccine N Date of Last Pap Smear 09/03/2020 Duration of Flow (days) 5-7 Most Recent Mammogram Current Control Method Age at Menarche 15 Obstetrics History GPAL:G 5 P 4 0 2 4 Type Value Full Term 4 Spontaneous 2 Living 4 Total 5 Past Encounters Encounter ID Performer Location Encounter Start Date Encounter Closed Date Diagnosis/Indication Diagnosis SNOMED-CT Code Diagnosis ICD10 Code Diagnosis Note [id number] Vanessa granados, [address] [address] 05/07/2021 11:42:40 05/07/2021 17:00:24 Routine care 240609153 Z34.01 Z34.81 O09.511 O09.521 Headache 00780448 R51.9 Anxiety 27140384 F41.9 [id number] Caty Gandara, [address] [address] 06/04/2021 12:07:16 06/04/2021 14:22:08 Normal in multigravida [id number] 14088 Z34.82 Gestation period, 17 weeks 87409661 Z3A.17 SAB precaution s given. FM awareness discussed. F/u in L&D if experienci ng leaking fluid, cramping not relieved by rest and fluids, bleeding with or without cramping; fever 100.4 x 24 hrs or 101 or greater anytime. [id number] Vanessa granados, [address] [address] 07/16/2021 11:09:23 07/17/2021 11:03:50 Routine care 331048482 Z34.01 Z34.81 O09.511 O09.521 screening for malformation 273050136 Z36.3 [id number] IRAM HERRERA MD [address] [address] 08/21/2021 10:32:03 10/29/2021 11:48:14 Gestation period, 28 weeks 40609165 Z3A.28 Supervisio n of high risk with history of previous section done 6331590229 9106 O09.899 Mood disorder 85938211 F 39 [id number] Vanessa granados, [address] [address] 09/24/2021 15:26:51 10/21/2021 14:08:52 [id number] JULIETTE SEAY, [facility] h [address] [place] [address] 10/09/2021 12:36:01 10/09/2021 14:04:54 Vaginal swab taken 110506234 Z75.2 collected Mixed anxi ety and depressive disorder 030720432 F41.8 increasing zoloft to 100mg today. Vaginitis 49975319 N76.0 Gestation period, 35 weeks 14733532 Z3A.35 IUP @ 35+ wks. US: No OB complaints . . PTL precaution s. RTO 1 wk. [id number] Vanessa CrumpAnabellaKenneth granados, [facility] [address] [place] [address] 10/15/2021 12:19:50 10/15/2021 15:54:26 [id number] JULIETTE SEAY [facility] [address] [place] [address] 10/30/2021 14:10:23 10/30/2021 14:55:16 Surgical incision wound of skin 8089179341 00 R23.8 31 y.o. s/p LTCS on here for incision check- Incision healing well, no s/sx infection, reports 1 week ago reddened open area. normal on exam today. discussed precaution s- Reviewed incision care, expectatio ns for healing- Continue ibuprofen as needed for pain- Meeting other PP milestones , mood stable. reports mild depressive symptoms but not inter, breasts not tender (breast feeding) precaution s discussed. - Return precaution s reviewed to include incision separation , new fevers, severe pain, heavy bleeding- Reviewed contracept candido plan and healthy spacing, desires mini pill will send rx at 6 week visit.- RTO 4 weeks state [id number] 1 Z39.2 Health Concerns Section Related Observation LastModified by Organization Detai ls LastModified Time None Recorded Concern Status LastModified by Organization Details LastModified Time None Recorded Advance Directives Directive None Recorded Payers Encounter Date Sequence Insurance Name Policy Number Policy Dennis Covered Member ID Dennis Member ID Guarantor Name 08/21/2021 1 [facility] (MEDICAID HMO) [id number] Darlin Silvestre [id number] Darlin Silvestre 09/24/2021 1 [facility] (MEDICAID HMO) [id number] 0003 Darlin Silvestre [id number] Darlin Silvestre 10/09/2021 1 [facility] (MEDICAID HMO) [id number] 0003 Darlin Mckinleyyer [id number] Darlin Silvestre 10/15/2021 1 [facility] (MEDICAID HMO) [id number] 0003 Darlin Walleremeyer [id number] Darlin Mckinleyyer 10/30/2021 1 [facility] (MEDICAID HMO) [id number] 0003 Darlin Walleremeyer [id number] Darlin Walleremeyer Notes Date Note Type Note Provider Name and Address Organization Details Recorded Time 08/21/2021 text/html OB ProblemReport ed bypatient.Associated Symptoms:no abdominal pain; no cramping; no contractions; normal movement; no bleeding; no ROM; no vaginal discharge; no vaginal/vulvar itching or irritation; no dysuria; no frequency; no urgency; no hematuria; no fever; no nausea; no emesis; no constipation; no diarrhea/loose stool; no edema; no visual changes; no headache; no dizziness; no decrease in urine volume; no breathlessness; no hyper-reflexia 31 year old @ 28.6 weeks gestation, here for YANDEL.Perceives active movements. Denies contractions, vaginal bleeding or leakage of fluid. No s/s of PIH.Mood stable.Decreased HC and BPD- followed by MFM. IRAM BAEZ MD Replaced by [facility] [place], [address], [employer] 10/26/2021 21:38:35 09/24/2021 text/html _Darlin is here today for a routine OB visit. She is currently at _33.5_weeks gestation. She has no complaints or questions. She is taking vitamins. She has felt movement. She denies the presence of vaginal bleed, leaking fluid, abdominal cramps, nausea, vomiting. There are no identifiable risk factors for pre-term labor. Vanessa Welch CNM Replaced by [facility] [place], [address], [place] [employer] 09/29/2021 08:18:07 10/09/2021 text/html OB ProblemReport ed bypatient.Location:[place]; lower back Associated Symptoms:abdominal pain;cramping;contrac tions;nausea;edema;vi sual changes;headache;dizz iness JULIETTE SEAY, PA[facility]isol [address] [place], [address], [facility] [email or web address] 10/09/2021 14:04:47 10/30/2021 text/html VisitReported bypatient.Associated Symptoms:no abnormal bleeding; no vaginal discharge; no pelvic pain; laceration well healed; no constipation; no fecal incontinence; no dysuria; no urinary incontinence; no fever; no problems; no mastitis; normal mood JULIETTE SEAYCASSIDY [address] [place], [address], [facility] [email or web address] 10/30/2021 14:55:08 OBGyn Episode Ob Episode Information Episode Created Date Number of Fetuses Patient Bloodtype Patient rh Status Prepregnancy Weight lbs Domestic Partner Domestic Partner Phone Father Name Threader Status 05/08/19 22 1 O Positive CLOSED Fetus Data First Name Last Name Admitted to NICU Weight (g) Sex Living Outcome Pediatric Complications Fetus ID Race Codes Race Delivery Type F true Full Term [id number] Repeat Problems Problem Notes repeat CS scheduled 11/03 Elsie Kerns Problem Name Start Date End Date Resolution Snomed Code Not e Past history of section 436803642 growth restriction 87332135 HC 5% seen by M FM no FU at this time Headache 53600438 mag ox, ty lenol and caffeine. Used to drink 8 cups of coffee daily. Anxiety 20019431 zoloft 50m g/daily, increased to 100mg daily 10/09increased to 200 daily in hospital. 05/07/2021 [id number] Morro Calculation Initial Morro Date Initial Exam Date Initial Exam Provider Initial Ultrasound Date Last Menstrual Period Date Ultra Sound Weeks Gestation 11/07/2021 05/07/2021 05/07/2021 13 Eighteen To Twenty Week Morro Update Ultra Sound Date Fundal Height At Umbil Quickening Date Ultra Sound Latest Weeks Gestation Final Morro Confirmed By Final Morro Confirmed Date Final Morro Date Ultra Sound Latest Days Gestation 0 [email or web address] 05/07/2021 022 0 Pre-phyllis Flowsheet Flowsheet Date 05/07/2021 Daivson Score Blood Edema Fundus Height Fundus Units Glucose Ketones Leukocytes Nitrite Labor Signs Protein Cervic Dilation Cervic Effacement Cervic Station trace neg Type Weight in lbs Pre/Post Dialysis Refused Weight 122.962000320147 BP Diastolic BP Location Tested BP Systolic BP Type 72 110 Fetus Heart Rate Present Fetus Movement Comments US today, oriented to practi ce. Flowsheet Date 06/04/2021 Davison Score Blood Edema Fundus Height Fundus Units Glucose Ketones Leukocytes Nitrite Labor Signs Protein Cervic Dilation Cervic Effacement Cervic Station none none none neg Type Weight in lbs Pre/Post Dialysis Refused With clothes 131.732251558137 BP Diastolic BP Location Tested BP Systolic BP Type 60 L arm 108 sitting Fetus Heart Rate Present A 157 Fetus Movement A Yes Comments No OB complaints. NEED LABS. Penta done this visit Flowsheet Date 07/16/2021 Davison Score Blood Edema Fundus Height Fundus Units Glucose Ketones Leukocytes Nitrite Labor Signs Protein Cervic Dilation Cervic Effacement Cervic Station Type Weight in lbs Pre/Post Dialysis Refused With clothes 139.761823991758 BP Diastolic BP Location Tested BP Systolic BP Type 66 R arm 112 sitting Fetus Heart Rate Present Fetus Movement Comments labs todayReviewed US BPD an d HC are both 3%ile, promininant Xyphoid process?? MFM referral Flowsheet Date 08/21/2021 Davison Score Blood Edema Fundus Height Fundus Units Glucose Ketones Leukocytes Nitrite Labor Signs Protein Cervic Dilation Cervic Effacement Cervic Station none 28 wks none Type Weight in lbs Pre/Post Dialysis Refused Weight 147.963387194922 BP Diastolic BP Location Tested BP Systolic BP Type 68 114 Fetus Heart Rate Present A 140 Present Fetus Movement A Yes Comments Third trim labs today. reque sting breast pump- ordered.USG with JACKIE wnl. Has repeat USG for growth in 4 weeks. PTL/ PIH precautions. Flowsheet Date 09/24/2021 Davison Score Blood Edema Fundus Height Fundus Units Glucose Ketones Leukocytes Nitrite Labor Signs Protein Cervic Dilation Cervic Effacement Cervic Station Type Weight in lbs Pre/Post Dialysis Refused Weight 156.735241957540 BP Diastolic BP Location Tested BP Systolic BP Type 60 100 sitting Fetus Heart Rate Present Fetus Movement A Yes Comments growth US today HC 10.6, BPD 0.6 per MFM not microcephalic as long as HS is >3%iletask sent to schedule US Flowsheet Date 10/09/2021 Davison Score Blood Edema Fundus Height Fundus Units Glucose Ketones Leukocytes Nitrite Labor Signs Protein Cervic Dilation Cervic Effacement Cervic Station none none [place] neg 0cm 0% -3 Type Weight in lbs Pre/Post Dialysis Refused Weight 161.188931922650 BP Diastolic BP Location Tested BP Systolic BP Type 58 114 Fetus Heart Rate Present A 142 Present Fetus Movement A Yes Comments complaints of vaginal pain, yeast on exam, rx and sureswab sent, GBS collectedEPDS 16, denies si/hi. increasing sertraline. adding Flowsheet Date 10/15/2021 Davison Score Blood Edema Fundus Height Fundus Units Glucose Ketones Leukocytes Nitrite Labor Signs Protein Cervic Dilation Cervic Effacement Cervic Station none 35 none none neg Type Weight in lbs Pre/Post Dialysis Refused Weight 163.479400018511 BP Diastolic BP Location Tested BP Systolic BP Type 60 108 Fetus Heart Rate Present A 141 Fetus Movement A Yes Comments GBS negMood OK, not feeling improvement from meds yet, only started last week Flowsheet Date 10/30/2021 Davison Score Blood Edema Fundus Height Fundus Units Glucose Ketones Leukocytes Nitrite Labor Signs Protein Cervic Dilation Cervic Effacement Cervic Station Type Weight in lbs Pre/Post Dialysis Refused Weight 147.038882603843 BP Diastolic BP Location Tested BP Systolic BP Type 58 110 Fetus Heart Rate Present Fetus Movement Comments Menstrual History Last Menstrual Date Menses Monthly On Bcp Conception Prior Menses Frequency Hcg Plus Date Menarche Onset Age Genetic Screening And Infection History Question Response Note Recent Travel History Outside of Country false Cystic Fibrosis false Any Other Genetic History false Anthony Disease false Other Infection History false Thalassemia (Frisian, East Timorese, Mediterranean, Or Background): MCV < 80 false Patient Or Baby's Father Had A Child With Defects Not Listed Above false Live With Someone With TB Or Exposed To TB false Patient's Age Will Be 35 Years Or Older At Estim ated Date of Delivery false Recurrent Loss, Or A Stillbirth false Hemoglobinopathy Or Carrier false Patient Or Partner Has History Of Genital Herpes false Intellectual Disability/Autism false Maternal Metabolic Disorder (eg, Type 1 Diabetes , PKU) false History of Hepatitis false Padilla-Sachs (eg, Faith, Cajun, [place]orran-[place]) f alse History Of STD, Gonorrhea, Chlamydia, HPV, Syphi lis false Prior GBS-infected child false History of HIV false Personal or Family History o f Neural Tube Defect (Meningomyelocele, Spina Bifida, Or Anencephaly) false Hemophilia Or Other Blood Disorders false Mental Retardation/Autism false Meeker's Chorea false If Yes, Was Person Tested For Fragile X? false Other Inherited Genetic Or Chromosomal Disorder false If Yes, Agent(s) And Strength/Dosage false Sickle Cell Disease Or Trait () false Personal or Family History of Congenital Heart D efect false Rash Or Viral Illness Since Last Menstrual Perio d false Muscular Dystrophy false Medications (including Suppl ements, Vitamins, Herbs, OTC Drugs), Illicit/Recreational Drugs, Alcohol false Other Structural Defect false Down Syndrome false Delivery Information Delivery Date Delivery Type Labor Anesthesia Weeks Gestation Incision Type Labor Labor Length Hrs Delivered By Post Complications Tubal Sterilization Discharge Date Comments 2 [facility] 37 Low Transvers e false Allison Serrano MD false 10/20/2021 Discharge Information Feeding Method Contraceptive Method Maternal HG B and HCT Levels Combination
--- OUTSIDE RECORDS SUMMARY | 2024-05-03 16:51 | XMS_ITS | Referral Summary ---
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 Name Role Phone Shilpa Perez Primary Care Provider [phone] Allergies No known active allergies Medications No known medications Active Problems Problem Noted Date Diagnosed Date Abnormal mammogram 07/05/2016 At risk for breast cancer 06/23/2016 Social History Tobacco Use Types Packs/Day Years Used Date Smoking Tobacco: Never Personal Safety Answer Date Recorded Getting School Help Needed Not on file 04/22 Comments Unknown Sex and Gender Information Value Date Recorded Sex Assigned at Not on file Legal Sex Female 1:13 PM CDT Gender Identity Not on file Sexual Orientation Not on file Last Filed Vital Signs Vital Sign Reading Time Taken Comments Blood Pressure - - Pulse - - Temperature - - Respiratory Rate - - Oxygen Saturation - - Inhaled Oxygen Concentration - - Weight 48.1 kg (106 lb) 09/25/2020 2:21 PM CDT Height 160 cm (5' 3 ) 09/25/2020 2:21 PM CDT Body Mass Index 18.78 09/25/2020 2:21 PM CDT Plan of Treatment Not on file Insurance [facility] Care Teams Electroslag Welding Machine Operator Relationship Specialty Start Date End Date Shilpa Perez PA [address] [place] [id number] PCP - General Physician Clerical Administrative Assistant 09/25/20
--- OUTSIDE RECORDS SUMMARY | 2024-05-03 16:51 | XMS_ITS | Clinical Summary ---
Author Organization [facility] Address [address] [place] [address] Care Team Providers Care Phone Representative Name Role Phone Shilpa Perez Primary Care Provider [phone] Allergies No known active allergies Medications No known medications Active Problems Problem Noted Date Diagnosed Date Abnormal mammogram 07/05/2016 At risk for breast cancer 06/23/2016 Surgical History Surgery Date Site/Laterality Comments APPENDECTOMY SECTION Family History Medical History Relation Name Comments Breast cancer Mother Adenocarcinoma of breast - (Added by TW Conv) Relation Name Status Comments Mother Social History Tobacco Use Types Packs/Day Years Used Date Smoking Tobacco: Never Personal Safety Answer Date Recorded Getting School Help Needed Not on file 04/22 Comments Unknown Sex and Gender Information Value Date Recorded Sex Assigned at Not on file Legal Sex Female 1:13 PM CDT Gender Identity Not on file Sexual Orientation Not on file Obstetrics History Last Filed Vital Signs Vital Sign Reading [...] Plan of Treatment Not on file Insurance [facility] Care Teams Phone Representative Relationship Specialty Start Date End Date Shilpa Perez PA [address] [place] [address] PCP - General Physician Press Brake Operator 09/25/20
--- OUTSIDE RECORDS SUMMARY | 2024-05-03 16:51 | XMS_ITS | Data Portability ---
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 Plan of Treatment Reminders Order Date Submit Date Provider Last Modified By Organization Details Last Modified Time Details Appointments U/S OB GROWTH 2024 10:30A M ULTRASOUND Not available Not available Not available OB ROUTINE 2024 11:00A M BESS REY MD Not available Not available Not available Lab None recorde d. Referral None recorde d. Procedures None recorde d. Surgeries None recorde d. Imaging US, obstetr ic, follow- up 2024 025 [email or web address] [place], [facility] [address], [place], [address], 03/22/2024 20:48:58 Medication Orders None recorde d. Patient TargetsNo targets recorded. Patient InstructionsNo instructions recorded. Reason for Referral None Reported. Results Created Date Observation Date Name Description Value Unit Range Abnormal Flag Note LastModifiedBy Organization Detail LastModifiedTime 03/22/19 25 03/22/2024 HEMOG LOBIN (HGB) HGB 10.1 g/dL (based on docume nted legal sex) 11.6-1 5.4 low Not Available [facility] (Lab) [address], [place], [address], 03/23/2024 12:36:06 03/22/19 25 03/22/2024 HEMAT OCRIT (HCT) HCT 31.2 % (based on docume nted legal sex) 34.0-4 5.0 low Not Available [facility] (Lab) [address], [place], [address], 03/23/2024 12:36:06 03/22/19 25 03/22/2024 GTT - GESTA JEFF L SCREE N, ACOG OB glucose, 1 hour screen 125 mg/dL 70-135 Not Available [facility] (Lab) [address], [place], [address], 03/23/2024 12:36:07 03/22/19 25 03/22/2024 HIV 1/2 ANTIG EN/AN TIBOD Y, REFLE X CONFI RMATI ON HIV antigen/anti body Nonrea ctive nonrea ctive HIV-1 antig en and HIV-1 /HIV- 2 antib odies were not detec duke. No labor atory evide nce of HIV infec tion. Not Available [facility] (Lab) [address], [place], [address], 03/23/2024 12:36:07 03/22/19 25 03/22/2024 RPR SCREE N, REFLE X TITER /CONF IRMAT ION RPR screen Nonrea ctive nonrea ctive Not Available [facility] (Lab) [address], [place], [address], 03/23/2024 12:36:07 03/22/19 25 03/22/2024 US, obste tric, follo w-up No observ ation record ed. [email or web address] [place] [address], [place], [address], 03/22/2024 18:13:20 03/22/19 25 03/22/2024 US, obste tric, follo w-up No observ ation record ed. [email or web address] [address], [place], [address], 03/26/2024 23:18:48 Result Notes None recorded. Problems Name Problem SNOMED Code Status Onset Date Resolution Date Notes Provider Name and Address Organization Details Recorded Time 25715141 Active 2023 Yohana Jose jaramillo [facility] 4 15:35:16 Past history of section 650181507 Active x4, plan for repeat BESS REY MD [address], [place], [address], [facility] 4 16:26:20 Migraine 45076638 Active sumatript an, caffeine BESS REY MD [address], [place], [address], [facility] 4 16:26:35 Venous henriquez 895285181 Active Sylvia Vasquez clint, [facility] 5 22:46:43 Venous henriquez 939037114 Active Sylvia Vasquez clint, [facility] 5 22:46:43 Problem Notes None recorded. Procedures Surgical History Date Name Laterality Status Provider Name and Address Organization Details Recorded Time 2 Date of Last Pap Smear completed Rachel Reno [facility] 10/12/2023 15:00:58 7 section completed Yohana Jose [facility] 11/14/2023 15:47:04 4 section completed Yohana Jose [facility] 11/14/2023 15:46:51 2 [facility] 11/14/2023 15:46:28 9 Removal of tonsils [facility] 11/14/2023 15:47:28 Imaging Results Imaging Date Name Status LastModified by Organiz ation Details LastModified Time 03/22/2024 US, obstetric, follow-up completed [email or web address] [place] [address], [place], [address], 03/22/2024 18:13:20 03/22/2024 US, obstetric, follow-up completed [email or web address] [address], [place], [address], 03/26/2024 23:18:48 Procedure Notes None recorded. Medical Equipment None Reported. Allergies Allergen ID Allergen Name Allergen Category Reaction Reaction Severity Criticality Documentation Date Start Date Code Code System Note Provider Name and Address Organization Details Recorded Time 50284 codeine medicatio n Not available Not available Not available 10/12/2023 2670 RxNorm Rachelnitin [place] [facility] 4 14:59:59 21408 hydroxyzi ne Not available Not available Not available Not available 10/12/2023 5553 RxNorm Rachel [address] [facility] 4 15:00:11 Medications Name Sig Start Date Stop Date Status Note LastModified by Organization Details LastModified Time fluconazole 150 mg tablet TAKE 1 TABLET BY MOUTH 1 TIME. REPEAT IN 72 HOURS WITH PERSISTEN T SYMPTOMS 10/11 completed Not Available Not Available Not Available sumatriptan 50 mg tablet active Not Available Not Available Not Available ondansetron 8 mg disintegrat ing tablet DISSOLVE 1 TABLET ON THE TONGUE FOUR TIMES DAILY NEEDED active Not Available Not Available No t Available norethindro ne (contracept sara) 0.35 mg tablet TAKE 1 TABLET BY MOUTH DAILY 10/11 completed Not Available Not Available Not Available Tylenol active Not Available Not Avail able Not Available active Not Available Not Avai lable Not Available Vitals Date Recorded Body height Body mass index (BMI) Body weight Systolic blood pressure Diastolic blood pressure Provider Name and Address Organization Details Last Updated DateTime 03/09/2024 162.56 cm 31.2 kg/m2 36389.81 g 120 mm[Hg] 77 mm[Hg] Yohana Garcia [facility] 5 12:31:28 Date Recorded Body height Body mass index (BMI) Body weight Systolic blood pressure Diastolic blood pressure Provider Name and Address Organization Details Last Updated DateTime 03/22/2024 162.56 cm 31.8 kg/m2 00269.59 g 104 mm[Hg] 69 mm[Hg] [facility] 5 15:43:01 Date Recorded Body height Body mass index (BMI) Body weight Systolic blood pressure Diastolic blood pressure Provider Name and Address Organization Details Last Updated DateTime 04/09/2024 162.56 cm 32.1 kg/m2 11610.77 319 g 123 mm[Hg] 76 mm[Hg] [facility] 5 12:34:09 Date Recorded Body height Body mass index (BMI) Body weight Systolic blood pressure Diastolic blood pressure Provider Name and Address Organization Details Last Updated DateTime 04/27/2024 162.56 cm 32.8 kg/m2 10020.14 g 116 mm[Hg] 76 mm[Hg] [facility] 5 10:42:40 Social History Question Answer Notes LastModified by Organizat ion Details LastModified Time Are You Blind Or Do You Have Difficulty Seeing? No Information not available 04/09/2024 In The 14 Days Before Symptom Onset, Have You Had Close Contact With A Laboratory-confirmed COVID-19 While That Case Was Ill? No [email or web address] Information not available 11/14/2023 In The 14 Days Before Symptom Onset, Have You Had Close Contact With A Person Who Is Under Investigation For COVID-19 While That Person Was Ill? No [email or web address] Information not available 11/14/2023 Have You Been To An Area Known To Be High Risk For COVID-19? No [email or web address] Information not available 11/14/2023 Are You Deaf Or Do You Have Serious Difficulty Hearing? No [email or web address] Information not available 04/09/2024 Are You Sexually Active? Yes [email or web address] Information not available 04/09/2024 Do You Have Smoke And Carbon Monoxide Detectors In Your Home? Yes [email or web address] Information not available 04/09/2024 Do You Use Sunscreen Routinely? Yes [email or web address] Information not available 04/09/2024 Sex: Unknown Functional Status Question Answer Note LastModified by Organizat ion Details LastModified Time Do you have difficulty walking or climbing stairs? No Information not available 04/09/2024 Are you able to walk? YESWOREST [email or web address] Information not available 04/09/2024 Are you able to care for yourself? Yes [email or web address] Information not available 04/09/2024 Do you have difficulty dressing or bathing? No [email or web address] Information not available 04/09/2024 Mental Status None recorded. Family History Nothing Reported. Medical History Condition Response Other N Blood Transfusion N Dermatologic Disorders N Gestational Diabetes N Anxiety Disorder N Autoimmune disease N Arthritis N Polyps N Infertility N Acid Reflux (GERD) N Cancer N Varicosities N Stroke N Neurologic/Epilepsy N Fibromyalgia N Headaches N Kidney Disease N Heart Problems N Kidney or Bladder Problems N Eating Disorder N Art (IVF or FET) N Hepatitis/Liver Disease N No Past Medical History N Urinary Tract Infection N Asthma N Trauma/Violence N Thrombophilias N Allergies (Food, seasonal, environmental ) N Breast Cancer N Drug/Latex Allergies/Reactions N Lung Disease N Defects or Inherited Disease N Breast Problem N Hematologic disorders N Anesthesia Complications N History of STI N Deep Vein Thrombosis N Polycystic ovary syndrome N History of abnormal pap N Endometriosis N High Cholesterol N Thyroid Problems N GI Problems N Anemia N Psychiatric Illness N Ovarian Cancer N Diabetes N Pulmonary (TB, Asthma) N Eczema N Abuse/Domestic Violence N Depression/ depression N Heart Disease N Pre-Eclampsia N Hypertension N Osteoporosis N Gynecological History Statement/Question Response Date of LMP 08/10/2023 Sexually Active? Y STIs/STDs N HPV Vaccine Y Date of Last Pap Smear 01/21/2022 Sexual Problems? N Current Control Method LMP Definite Obstetrics History GPAL:G 7 P 4 0 2 4 Type Value Full Term 4 Spontaneous 2 Living 4 Total 7 Past Encounters Encounter ID Performer Location Encounter Start Date Encounter Closed Date Diagnosis/Indication Diagnosis SNOMED-CT Code Diagnosis ICD10 Code Diagnosis Note [id number] Nayeli Skinnerana [place] [address] [address] 10/12/2023 14:01:19 10/12/2023 15:23:49 Uterine size for dates discrepancy 500379791 O26.841 Z3A.01 [id number] BESS REY MD [place] [address],[place] [address] 10/12/2023 14:26:19 10/13/2023 10:36:02 Nausea and vomiting 32596277 R11.2 test positive 499384329 Z32.01 1. Exam today within normal limits.2. Ultrasound today confirms GA and viability. EDC . GC/Clamydi a testing done: will f/u as indicated. 4. ACOG guidelines and plan of care for reviewed with patient. All questions answered.5 . Return to office at 12 weeks for new OB visit6. Will need new OB labs at next visit.7. Genetic screening: desires. Uterine sc ar from previous surgery affecting 28895188 O34.29 - c section x4- discussed risks of higher order c sections, including uterine rupture or scar tissue- will monitor placenta closely during US Migraine 35328965 G43.90 9 - recommend tylenol as first line therapy- ok for sumatripta n PRN [id number] [facility] [address],[place] [address] 11/14/2023 14:39:14 11/14/2023 15:35:33 screening 150539906 Z36.82 Z3A.11 [id number] BESS REY MD [place] [address],[place] [address] 11/14/2023 14:40:12 11/14/2023 16:59:32 Routine care 110516657 Z34.91 Gestation period, 12 weeks 45300289 Z3A.12 - continue vitamin Uterine sc ar from previous surgery affecting 72229984 O34.29 - c section x4- discussed risks of higher order c sections, including uterine rupture or scar tissue- will monitor placenta closely during US Migraine 75600222 G43.90 9 - recommend tylenol as first line therapy and caffeine- ok for sumatripta n PRN [id number] BESS REY MD [place] [address] [address] 12/20/2023 11:46:50 12/21/2023 12:46:29 Uterine scar from previous surgery affecting 69775611 O34.29 - c section x4- discussed risks of higher order c sections, including uterine rupture or scar tissue- will monitor placenta closely during US Migraine 74632369 G43.90 9 - recommend tylenol as first line therapy and caffeine- ok for sumatripta n PRN Gestation period, 16 weeks 38036278 Z3A.16 - continue PNV [id number] [facility] [address],[place] [address] 01/17/2024 11:28:58 01/17/2024 12:44:50 screening for malformation 047718496 Z36.3 Z3A.20 [id number] BESS REY MD [place] [address],[place] [address] 01/17/2024 11:29:13 01/20/2024 08:54:38 Uterine scar from previous surgery affecting 84672437 O34.29 - c section x4- discussed risks of higher order c sections, including uterine rupture or scar tissue- normal appearing anterior uterine wall with posterior placenta Gestation period, 20 weeks 51124162 Z3A.20 - continue PNV [id number] BESS REY MD [place] [address],[place] [address] 03/09/2024 12:10:17 03/12/2024 09:04:41 Uterine scar from previous surgery affecting 50780077 O34.29 - c section x4- discussed risks of higher order c sections, including uterine rupture or scar tissue- normal appearing anterior uterine wall with posterior placenta Gestation period, 28 weeks 84399982 Z3A.28 [id number] [facility] [address],[place] [address] 03/22/2024 14:58:48 03/22/2024 15:36:30 Uterine size for dates discrepancy 595921310 O26.843 O36.60X0 Z3A.30 [id number] BESS REY MD [place] [address],[place] [address] 03/22/2024 14:59:01 03/22/2024 16:19:14 Uterine scar from previous surgery affecting 88681986 O34.29 - c section x4- discussed risks of higher order c sections, including uterine rupture or scar tissue- normal appearing anterior uterine wall with posterior placenta Gestation period, 30 weeks 41783127 Z3A.30 - continue PNV [id number] MD Juliane MCKEON [address] [address] 04/09/2024 12:29:02 04/09/2024 14:21:48 Uterine scar from previous surgery affecting 52939553 O34.29 - c section x4- discussed risks of higher order c sections, including uterine rupture or scar tissue- normal appearing anterior uterine wall with posterior placenta Gestation period, 32 weeks 5211900 Z3A.32 Anemia of 2734 2003 O99.019 - repeat Hgb/Fe panel at 36 weeks [id number] MD Juliane MCKEON [address] [address] 04/27/2024 10:04:36 04/27/2024 11:18:46 Uterine scar from previous surgery affecting 09801912 O34.29 - c section x4- discussed risks of higher order c sections, including uterine rupture or scar tissue- normal appearing anterior uterine wall with posterior placenta Gestation period, 35 weeks 73110178 Z3A.35 Health Concerns Section Related Observation LastModified by Organization Detai ls LastModified Time None Recorded Concern Status LastModified by Organization Details LastModified Time None Recorded Advance Directives Directive None Recorded Payers Encounter Date Sequence Insurance Name Policy Number Policy Dennis Covered Member ID Dennis Member ID Guarantor Name 03/09/2024 1 [facility] (MEDICAID HMO) [id number] [facility] [id number] [facility] 03/22/2024 1 [facility] (MEDICAID HMO) [id number] Darlin Walleremeyer [id number] [facility] 03/22/2024 1 [facility] (MEDICAID HMO) [id number] Darlin Walleremeyer [id number] [facility] 04/09/2024 1 [facility] (MEDICAID HMO) [id number] Darlin Silvestre [id number] [facility] 04/27/2024 1 [facility] (MEDICAID HMO) [id number] Darlin Konrad [id number] Darlin Walleremeyer OBGyn Episode Ob Episode Information Episode Created Date Number of Fetuses Patient Bloodtype Patient rh Status Prepregnancy Weight lbs Domestic Partner Domestic Partner Phone Father Name Millinery Salesperson Status 10/12/19 24 1 CLOSED Fetus Data First Name Last Name Admitted to NICU Weight (g) Sex Living Outcome Pediatric Complications Fetus ID Race Codes Race Delivery Type F Full Term [id number] Primary Morro Calculation Initial Morro Date Initial Exam Date Initial Exam Provider Initial Ultrasound Date Last Menstrual Period Date Ultra Sound Weeks Gestation 0 Eighteen To Twenty Week Morro Update Ultra Sound Date Fundal Height At Umbil Quickening Date Ultra Sound Latest Weeks Gestation Final Morro Confirmed By Final Morro Confirmed Date Final Morro Date Ultra Sound Latest Days Gestation 0 0 Menstrual History Last Menstrual Date Menses Monthly On Bcp Conception Prior Menses Frequency Hcg Plus Date Menarche Onset Age Delivery Information Delivery Date Delivery Type Labor Anesthesia Weeks Gestation Incision Type Labor Labor Length Hrs Delivered By Post Complications Tubal Sterilization Discharge Date Comments 2 Discharge Information Feeding Method Contraceptive Method Maternal HG B and HCT Levels Ob Episode Information Episode Created Date Number of Fetuses Patient Bloodtype Patient rh Status Prepregnancy Weight lbs Domestic Partner Domestic Partner Phone Father Name Millinery Salesperson Status 10/12/19 24 1 CLOSED Fetus Data First Name Last Name Admitted to NICU Weight (g) Sex Living Outcome Pediatric Complications Fetus ID Race Codes Race Delivery Type F Full Term [id number] Repeat Morro Calculation Initial Morro Date Initial Exam Date Initial Exam Provider Initial Ultrasound Date Last Menstrual Period Date Ultra Sound Weeks Gestation 0 Eighteen To Twenty Week Morro Update Ultra Sound Date Fundal Height At Umbil Quickening Date Ultra Sound Latest Weeks Gestation Final Morro Confirmed By Final Morro Confirmed Date Final Morro Date Ultra Sound Latest Days Gestation 0 0 Menstrual History Last Menstrual Date Menses Monthly On Bcp Conception Prior Menses Frequency Hcg Plus Date Menarche Onset Age Delivery Information Delivery Date Delivery Type Labor Anesthesia Weeks Gestation Incision Type Labor Labor Length Hrs Delivered By Post Complications Tubal Sterilization Discharge Date Comments 4 Discharge Information Feeding Method Contraceptive Method Maternal HG B and HCT Levels Ob Episode Information Episode Created Date Number of Fetuses Patient Bloodtype Patient rh Status Prepregnancy Weight lbs Domestic Partner Domestic Partner Phone Father Name Millinery Salesperson Status 10/12/19 24 1 CLOSED Fetus Data First Name Last Name Admitted to NICU Weight (g) Sex Living Outcome Pediatric Complications Fetus ID Race Codes Race Delivery Type F Full Term [id number] Repeat Morro Calculation Initial Morro Date Initial Exam Date Initial Exam Provider Initial Ultrasound Date Last Menstrual Period Date Ultra Sound Weeks Gestation 0 Eighteen To Twenty Week Morro Update Ultra Sound Date Fundal Height At Umbil Quickening Date Ultra Sound Latest Weeks Gestation Final Morro Confirmed By Final Morro Confirmed Date Final Morro Date Ultra Sound Latest Days Gestation 0 0 Menstrual History Last Menstrual Date Menses Monthly On Bcp Conception Prior Menses Frequency Hcg Plus Date Menarche Onset Age Delivery Information Delivery Date Delivery Type Labor Anesthesia Weeks Gestation Incision Type Labor Labor Length Hrs Delivered By Post Complications Tubal Sterilization Discharge Date Comments 2 Discharge Information Feeding Method Contraceptive Method Maternal HG B and HCT Levels Ob Episode Information Episode Created Date Number of Fetuses Patient Bloodtype Patient rh Status Prepregnancy Weight lbs Domestic Partner Domestic Partner Phone Father Name Millinery Salesperson Status 11/14/19 24 1 O Positive 167 OPEN Fetus Data First Name Last Name Admitted to NICU Weight (g) Sex Living Outcome Pediatric Complications Fetus ID Race Codes Race Delivery Type [id number] Problems Problem Notes UDS+ [id number] us Problem Name Start Date End Date Resolution Snomed Code Not e Venous henriquez [id number] Migraine 15116421 sumatripta n, caffeine Past history of section 875196429 x4, plan for repeat Morro Calculation Initial Morro Date Initial Exam Date Initial Exam Provider Initial Ultrasound Date Last Menstrual Period Date Ultra Sound Weeks Gestation 05/30/2024 11/14/2023 10/12/2023 08/10/2023 7 Eighteen To Twenty Week Morro Update Ultra Sound Date Fundal Height At Umbil Quickening Date Ultra Sound Latest Weeks Gestation Final Morro Confirmed By Final Morro Confirmed Date Final Morro Date Ultra Sound Latest Days Gestation 0 [email or web address] 11/14/2023 05/31/19 25 0 Pre- Flowsheet Flowsheet Date 11/14/2023 Davison Score Blood Edema Fundus Height Fundus Units Glucose Ketones Leukocytes Nitrite Labor Signs Protein Cervic Dilation Cervic Effacement Cervic Station neg none none trace Type Weight in lbs Pre/Post Dialysis Refused Weight 161.808069764395 BP Diastolic BP Location Tested BP Systolic BP Type 72 L arm 109 sitting Fetus Heart Rate Present A Present Fetus Movement Comments Patient presents to [facility] care. She has a history of c section x4. Her pregnancies are otherwise uncomplicated. She has a history of migraines that have been worsening. Discussed tylenol, caffeine and sumatriptan if needed. NT/NB wnl today desires NIPT. Will draw today with new OB labs. Nausea controlled with zofran. RTC 4 weeks for routine care. Flowsheet Date 12/20/2023 Davison Score Blood Edema Fundus Height Fundus Units Glucose Ketones Leukocytes Nitrite Labor Signs Protein Cervic Dilation Cervic Effacement Cervic Station Type Weight in lbs Pre/Post Dialysis Refused 170.497136950143 BP Diastolic BP Location Tested BP Systolic BP Type 74 109 Fetus Heart Rate Present Fetus Movement A Yes Comments Patient c/o nausea and lower extremity swelling. Headaches stable, taking sumatriptan PRN. Nausea controlled. LR male NIPT. OB labs all wnl. Discussed anatomy US for next visit. RTC 4 weeks. Flowsheet Date 01/17/2024 Davison Score Blood Edema Fundus Height Fundus Units Glucose Ketones Leukocytes Nitrite Labor Signs Protein Cervic Dilation Cervic Effacement Cervic Station Type Weight in lbs Pre/Post Dialysis Refused BP Diastolic BP Location Tested BP Systolic BP Type Fetus Heart Rate Present Fetus Movement Comments Flowsheet Date 01/17/2024 Davison Score Blood Edema Fundus Height Fundus Units Glucose Ketones Leukocytes Nitrite Labor Signs Protein Cervic Dilation Cervic Effacement Cervic Station neg none none trace Type Weight in lbs Pre/Post Dialysis Refused Weight 175.703858776886 BP Diastolic BP Location Tested BP Systolic BP Type 72 L arm 115 sitting Fetus Heart Rate Present A Present Fetus Movement A Yes Comments Good movement. No cram ping or bleeding. Headaches stable. Anatomy complete and normal, EFW 89%. Posterior placenta, normal appearing anterior uterine wall. RTC 4 weeks. Flowsheet Date 03/09/2024 Davison Score Blood Edema Fundus Height Fundus Units Glucose Ketones Leukocytes Nitrite Labor Signs Protein Cervic Dilation Cervic Effacement Cervic Station neg none Type Weight in lbs Pre/Post Dialysis Refused Weight 182.051528165725 BP Diastolic BP Location Tested BP Systolic BP Type 77 L arm 120 sitting Fetus Heart Rate Present A 140 Fetus Movement A Yes Comments Good movement. Does re port round ligament pain. No bleeding. Headaches stable. Discussed GCT and labs, patient would like to complete at 30 week visit due to childcare help. Will also repeat growth US at that time. RTC 2 weeks. Flowsheet Date 03/22/2024 Davison Score Blood Edema Fundus Height Fundus Units Glucose Ketones Leukocytes Nitrite Labor Signs Protein Cervic Dilation Cervic Effacement Cervic Station Type Weight in lbs Pre/Post Dialysis Refused BP Diastolic BP Location Tested BP Systolic BP Type Fetus Heart Rate Present Fetus Movement Comments Flowsheet Date 03/22/2024 Davison Score Blood Edema Fundus Height Fundus Units Glucose Ketones Leukocytes Nitrite Labor Signs Protein Cervic Dilation Cervic Effacement Cervic Station neg none Type Weight in lbs Pre/Post Dialysis Refused Weight 185.478063178873 BP Diastolic BP Location Tested BP Systolic BP Type 69 L arm 104 sitting Fetus Heart Rate Present A Present Fetus Movement A Yes Comments Good movement. No cram ping or bleeding. GCT and labs today. EFW 90%, YVAN wnl. Will repeat at 36 weeks to reevaluate anterior uterine wall but plan for 39 week c section. RTC 2 weeks. Flowsheet Date 04/09/2024 Davison Score Blood Edema Fundus Height Fundus Units Glucose Ketones Leukocytes Nitrite Labor Signs Protein Cervic Dilation Cervic Effacement Cervic Station neg none Type Weight in lbs Pre/Post Dialysis Refused [id number] BP Diastolic BP Location Tested BP Systolic BP Type 76 L arm 123 sitting Fetus Heart Rate Present A 140 Fetus Movement A Yes Comments Patient c/o Magalia Jaramillo, p elvic pain. Good movement. Will try conservative treatment for pelvic pain. Passed GCT. Anemic, will start Fe supplement and retest in 4 weeks. Discussed preadmission. RTC 2 weeks. Flowsheet Date 04/27/2024 Davison Score Blood Edema Fundus Height Fundus Units Glucose Ketones Leukocytes Nitrite Labor Signs Protein Cervic Dilation Cervic Effacement Cervic Station neg none Type Weight in lbs Pre/Post Dialysis Refused Weight [id number] BP Diastolic BP Location Tested BP Systolic BP Type 76 L arm 116 sitting Fetus Heart Rate Present Fetus Movement A Yes Comments Patient c/o Magalia Jaramillo. G ood movements. No strong contractions. Discussed RCS tentatively on 05/23. Will discuss again next week. Repeat anemia labs next week. Labor precautions reviewed. RTC 1 week. Menstrual History Last Menstrual Date Menses Monthly On Bcp Conception Prior Menses Frequency Hcg Plus Date Menarche Onset Age 0608/10/2023 Delivery Information Delivery Date Delivery Type Labor Anesthesia Weeks Gestation Incision Type Labor Labor Length Hrs Delivered By Post Complications Tubal Sterilization Discharge Date Comments Discharge Information Feeding Method Contraceptive Method Maternal HG B and HCT Levels Ob Episode Information Episode Created Date Number of Fetuses Patient Bloodtype Patient rh Status Prepregnancy Weight lbs Domestic Partner Domestic Partner Phone Father Name Millinery Salesperson Status 10/12/19 24 1 CLOSED Fetus Data First Name Last Name Admitted to NICU Weight (g) Sex Living Outcome Pediatric Complications Fetus ID Race Codes Race Delivery Type , Spont[place] ous [id number] [place] Calculation Initial [place] Date Initial Exam Date Initial Exam Provider Initial Ultrasound Date Last Menstrual Period Date Ultra Sound Weeks Gestation 0 Eighteen To Twenty Week Mor[place] Update Ultra Sound Date Fundal Height At Umbil Quickening Date Ultra Sound Latest Weeks Gestation Final [place] Confirmed By Final [place] Confirmed Date Final [place] Date Ultra Sound Latest Days Gestation 0 0 Menstrual History Last Menstrual Date Menses Monthly On Bcp Conception Prior Menses Frequency Hcg Plus Date Menarche Onset Age Delivery Information Delivery Date Delivery Type Labor Anesthesia Weeks Gestation Incision Type Labor Labor Length Hrs Delivered By Post Complications Tubal Sterilization Discharge Date Comments 4 Discharge Information Feeding Method Contraceptive Method Maternal HG B and HCT Levels Ob Episode Information Episode Created Date Number of Fetuses Patient Bloodtype Patient rh Status Prepregnancy Weight lbs Domestic Partner Domestic Partner Phone Father Name Millinery Salesperson Status 10/12/19 24 1 CLOSED Fetus Data First Name Last Name Admitted to NICU Weight (g) Sex Living Outcome Pediatric Complications Fetus ID Race Codes [place] [id number] [place] Calculation Initial [place] Date Initial Exam Date Initial Exam Provider Initial Ultrasound Date Last Menstrual Period Date Ultra Sound Weeks Gestation 0 Eighteen To Twenty Week Mor[place] Update Ultra Sound Date Fundal Height At Umbil Quickening Date Ultra Sound Latest Weeks Gestation Final [place] Confirmed By Final [place] Confirmed Date Final [place] Date Ultra Sound Latest Days Gestation 0 0 Menstrual History Last Menstrual Date Menses Monthly On Bcp Conception Prior Menses Frequency Hcg Plus Date Menarche Onset Age Delivery Information Delivery Date Delivery Type Labor Anesthesia Weeks Gestation Incision Type Labor Labor Length Hrs Delivered By Post Complications Tubal Sterilization Discharge Date Comments 3 miscarri a ge at 5 months, hemorrhag e, D&C Discharge Information Feeding Method Contraceptive Method Maternal HG B and HCT Levels Ob Episode Information Episode Created Date Number of Fetuses Patient Bloodtype Patient rh Status Prepregnancy Weight lbs Domestic Partner Domestic Partner Phone Father Name Millinery Salesperson Status 10/12/19 24 1 CLOSED Fetus Data First Name Last Name Admitted to NICU Weight (g) Sex Living Outcome Pediatric Complications Fetus ID Race Codes Race Delivery Type F Full Term [id number] Repeat Morro Calculation Initial [place] Date Initial Exam Date Initial Exam Provider Initial Ultrasound Date Last Menstrual Period Date Ultra Sound Weeks Gestation 0 Eighteen To Twenty Week [place] Update Ultra Sound Date Fundal Height At Umbil Quickening Date Ultra Sound Latest Weeks Gestation Final [place] Confirmed By Final [place] Confirmed Date Final [place] Date Ultra Sound Latest Days Gestation 0 0 Menstrual History Last Menstrual Date Menses Monthly On Bcp Conception Prior Menses Frequency Hcg Plus Date Menarche Onset Age Delivery Information Delivery Date Delivery Type Labor Anesthesia Weeks Gestation Incision Type Labor Labor Length Hrs Delivered By Post Complications Tubal Sterilization Discharge Date Comments 7 Discharge Information Feeding Method Contraceptive Method Maternal HG B and HCT Levels
--- OUTSIDE RECORDS SUMMARY | 2024-05-03 16:51 | XMS_ITS | Clinical Summary ---
Author Organization [facility] Address Formerly [facility] [place] [address] Care Team Providers Care Coding Clerk Name Role Phone None, Provider MD Primary Care Provider Unavaila ble Allergies Active Allergy Reactions Criticality Noted Date Comments Codeine Vomiting Low 10/05/2021 Hydroxyzine Vomiting Low 10/13/2021 Medications No known medications Active Problems Problem Noted Date Diagnosed Date H/O section 10/17/2021 Delivery with history of section (HHS/H CC) 10/17/2021 Social History Tobacco Use Types Packs/Day Years Used Date Smoking Tobacco: Never Smokeless Tobacco: Never Alcohol Use Standard Drinks/Week Comments Yes 0 (1 standard drink = 0.6 oz pur e alcohol) Humiliation, Afraid, Rape, and Kick questionnair e Answer Date Recorded Within the last year, have y ou been afraid of your partner or ex-partner? No 10/13/2021 Within the last year, have y ou been humiliated or emotionally abused in other ways by your partner or ex-partner? No Within the last year, have y ou been kicked, hit, slapped, or otherwise physically hurt by your partner or ex-partner? No 10/13/2021 Within the last year, have y ou been raped or forced to have any kind of sexual activity by your partner or ex-partner? No 10/13/2021 Overall Financial Resource Strain (CARDIA) Answe r Date Recorded How hard is it for you to pa y for the very basics like food, housing, medical care, and heating? Not hard at all 10/05/2021 Exercise Vital Sign Answer Date Recorde d On average, how many days pe r week do you engage in moderate to strenuous exercise (like a brisk walk)? 3 days 10/05/2021 On average, how many minutes do you engage in exercise at this level? 60 min 10/05/2021 PRAPARE - Transportation Answer Date Re corded In the past 12 months, has l ack of transportation kept you from medical appointments or from getting medications? No 09/21 In the past 12 months, has l ack of transportation kept you from meetings, work, or from getting things needed for daily living? No 10/05/2021 Housing Stability Vital Sign Answer Leonel e Recorded In the last 12 months, was t here a time when you were not able to pay the mortgage or rent on time? No 10/05/2021 In the last 12 months, how many places have you lived? 1 10/05/2021 In the last 12 months, was t here a time when you did not have a steady place to sleep or slept in a fdc (including now)? No 10/05/2021 Depression Answer Date Recor ded Last EPDS Total Score 12 10/18/2021 Last EPDS Self Harm Result 10/18 Education Answer Date Recorded What is the highest level of school you have completed or the highest degree you have received? 12th grade 10/05/2021 Comments No Sex and Gender Information Value Date Recorded Sex Assigned at Female 10/05/2021 8:58 PM CDT Legal Sex Female 5:59 PM [employer]ENDENT Gender Identity Female 10/05/2021 8:58 PM CDT Sexual Orientation Straight 10/05/2021 8: 58 PM CDT Last Filed Vital Signs Vital Sign Reading Time Taken Comments Blood Pressure 127/80 07/10/2023 11:03 PM CDT Pulse 77 07/10/2023 11:03 PM CDT Temperature 36.9 C (98.4 F) 07/10/2023 11:03 PM CDT Respiratory Rate 16 07/10/2023 11:03 PM CDT Oxygen Saturation 98% 07/10/2023 11:03 PM CDT Inhaled Oxygen Concentration - - Weight 71.7 kg (158 lb 1.1 oz) 07/10/2023 11:03 PM CDT Height 162.6 cm (5' 4 ) 07/10/2023 11:03 PM CDT Body Mass Index 27.13 07/10/2023 11:03 PM CDT Plan of Treatment Health Maintenance Due Date Last Done Comments Cervical Cancer Screening Pap Smear (Age 30 to 64) Every 3 Years 1992 Annual Physical 07/30/1995 HPV Vaccines (3 - 2-dose series) 05/26/2007 01/26/2007, 11/24/2006 Cervical Cancer Screening Pap with HPV Testing (Age 30 to 64) Every 5 Years 2022 Cervical Cancer Screening with HPV 2022 COVID-19 Vaccine ( season) 2023 Influenza Adult (#1) 2023 DTaP, Tdap and Td Vaccines (9 - Td or Tdap) 11/04/2026 11/04/2016, 02/22/2016, 11/24/2006, Additional history exists Hepatitis B Vaccines Completed 01/28/1993, 1992, 1992, Additional history exists Meningococcal Vaccine Aged Out 11/24/2006 No ross kwesi eligible based on patient's age to complete this topic Hepatitis C Completed 08/21/2021, 06/04/2021 Meningococcal B Vaccine Aged Out No l onger eligible based on patient's age to complete this topic Pneumococcal Vaccine: Pediatrics (0 to 5 Years) and At-Risk Patients (6 to 64 Years) Aged Out No longer eligible based on patient's age to complete this topic RSV Immunizations Under 20 Months Aged Out No longer eligible based on patient's age to complete this topic Procedures Procedure Name Priority Date/Time Associated Diagnosis Comments HEPATITIS C ANTIBODY Routine 08/21/2021 from Last 3 Months or Most Recently Relevant to Health Maintenance Results * HEPATITIS C ANTIBODY (08/21/2021) HEPATITIS C AB Negative us Doc [facility] Final Result from Last 3 Months or Most Recently Relevant to Health Maintenance Additional Health Concerns Infection Onset Date 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
--- OUTSIDE RECORDS SUMMARY | 2024-05-03 16:51 | XMS_ITS | Patient Health Summary ---
Author Organization [facility] Address [address] [place] [address] Care Team Providers Care Office Machine Inspector Name Role Phone Shilpa Perez PA-C Primary Care Provider + Note from [facility],non-owned Affiliates and Associated Physician Practices is amultiple site organization consisting of ambulatory clinics and hospital sitesin [place] and [place]. This disclosure is being madepursuant to the Care Everywhere program and may not contain all information available regarding this patient. Last updated 17.[facility] Allergies * Codeine(Nausea and/or Vomiting) -Low Criticality * Hydroxyzine Hcl(Other) Medications * Be aware that medications may not be up to date on this document. Alwaysverify current medications with the patient. * ibuprofen (MOTRIN) 600 MG tablet(Started 12/31/2016) Take 1 tablet by mouth every 6 hours as needed for Pain * norethindrone-ethinyl estradiol (ORTHO-NOVUM , ,) 1-35 MG-MCG tablet Take 1 tablet by mouth once daily * buPROPion HCl ER, XL, 450 MG(Started 09/09/2020) Take 1 (one) tablet by mouth every morning 1 refill by 09/09/2021 * propranolol (INDERAL) 10 MG tablet(Started 09/09/2020) Take 1 (one) tablet by mouth as needed 1 refill by 09/09/2021 * propranolol CR 24hr (INDERAL LA) 60 MG capsule(Started 09/09/2020) Take 1 (one) capsule by mouth once daily 1 refill by 09/09/2021 * escitalopram (LEXAPRO) 10 MG tablet(Started 12/30/2020) TAKE ONE-HALF TABLET BY MOUTH DAILY FOR 7 DAYS, THEN TAKE 1 TABLET BY MOUTH DAILY THEREAFTER. 1 refill by 12/30/2021 Active Problems Problem Noted Date Diagnosed Date History of migraine 06/19/2018 Influenza vaccination declined 06/19/2018 Mixed anxiety and depressive disorder 06/19/2018 Bleeding nose 05/12/2018 Abnormal weight loss 05/12/2018 Easy bruising 05/12/2018 H/O section x2 09/17/2016 Major depressive disorder 09/07/2016 Intentional benzocaine overdose 08/31/2016 Resolved Problems Problem Noted Date Diagnosed Date Resolved Date 12/28/2016 01/11/2018 Encounter for ultrasound to check growth 09/30/2016 01/11/2018 Supervision of high-risk pre gnancy of young multigravida 09/07/2016 08/02/2017 Suicide attempt 08/31/2016 01/11/2018 Acute respiratory failure 08/31/2016 22 weeks gestation of 08/31/2016 01/11/2018 Intentional poisoning by narcotic 08/31/2016 03/15/2018 Drug overdose, intentional 08/31/2016 0 03/15/2018 Cluster B personality disorder 08/31/2016 01/11/2018 Immunizations * TDAP (7yrs+)(Given 11/04/2016, 02/22/2016) Social History Tobacco Use Types Packs/Day Years Used Date Smoking Tobacco: Never Smokeless Tobacco: Never Tobacco Cessation:Counseling Given: No Alcohol Use Standard Drinks/Week Comments No 0 (1 standard drink = 0.6 oz pur e alcohol) Sex and Gender Information Value Date Recorded Sex Assigned at Not on file Gender Identity Not on file Sexual Orientation Not on file Last Filed Vital Signs Vital Sign Reading Time Taken Comments Blood Pressure 112/71 08/23/2019 11:29 AM CDT Pulse 86 08/23/2019 11:29 AM CDT Temperature 36.1 C (97 F) 10/25/2018 2:34 PM CDT Respiratory Rate 18 02/09/2017 12:50 PM GOLD BUYER Oxygen Saturation 100% 10/25/2018 2:34 PM CDT Inhaled Oxygen Concentration - - Weight 47.6 kg (105 lb) 08/23/2019 11:29 AM CDT Height 162.6 cm (5' 4 ) 04/20/2019 3:10 PM GOLD BUYER Body Mass Index 18.02 04/20/2019 3:10 PM GOLD BUYER Procedures * SONOGRAM - COMPLETE(Performed 09/03/2021) Performed for History of 3 sections, Anxiety, Encounter for ultrasound to assess growth (HCC), Fifth (HCC) * SONOGRAM - COMPLETE(Performed 07/31/2021) Performed for History of 3 sections, Anxiety, Depression, unspecified depression type, History of suicide attempt, Encounter for ultrasound to assess growth (HCC) * US BREAST LEFT LTD(Performed 10/25/2018) Performed for Lump or mass in breast * PATHOLOGY PERIPHERAL SMEAR REVIEW(Performed 05/12/2018) Performed for Bleeding nose * DIFFERENTIAL MANUAL(Performed 05/12/2018) Performed for Bleeding nose * PT-INR [facility](Performed 05/12/2018) Performed for Bleeding nose * COMPREHENSIVE METABOLIC PANEL(Performed 05/12/2018) Performed for Bleeding nose * CBC W AUTO DIFFERENTIAL(Performed 05/12/2018) Performed for Bleeding nose * IMAGING/RADIOLOGY/XRAY RESULTS ORDER(Performed 01/06/2017) * PATHOLOGY/GENETICS HISTORICAL-ONBASE(Performed 12/31/2016) * CBC W AUTO DIFFERENTIAL(Performed 12/29/2016) * PULSE OXIMETRY, CONTINUOUS(Performed 12/28/2016) * BLOOD GASES CORD TANNER (ISTAT)(Performed 12/28/2016) * BLOOD GASES CORD ART (ISTAT)(Performed 12/28/2016) * PATHOLOGY TISSUE EXAM (STL)(Performed 12/28/2016) Performed for History of section * NEURAXIAL BLOCK(Performed 12/28/2016) * SECTION (REPEAT)(Performed 12/28/2016) Performed for History of section * URINE DRUG SCREEN IMMUNOASSAY(Performed 12/28/2016) * TYPE + SCREEN PANEL(Performed 12/28/2016) * CBC W AUTO DIFFERENTIAL(Performed 12/28/2016) * GLUCOSE PROTEIN KETONE URINE - POINT OF CAR(Performed 12/23/2016) Performed for Supervision of high-risk of young multigravida (HCC) * CULTURE STREP B(Performed 12/16/2016) Performed for Supervision of high-risk of young multigravida (HCC) * GLUCOSE PROTEIN KETONE URINE - POINT OF CAR(Performed 12/16/2016) Performed for Supervision of high-risk of young multigravida (HCC) * T4 FREE(Performed 11/04/2016) Performed for Moderate episode of recurrent major depressive disorder (HCC) * TSH(Performed 11/04/2016) Performed for Moderate episode of recurrent major depressive disorder (HCC) * GLUCOSE PROTEIN KETONE URINE - POINT OF CAR(Performed 11/04/2016) Performed for Supervision of high-risk of young multigravida (HCC) * GLUCOSE PROTEIN KETONE URINE - POINT OF CAR(Performed 10/28/2016) Performed for Supervision of high-risk of young multigravida (HCC) * SONOGRAM - COMPLETE(Performed 09/30/2016) * TYPE + SCREEN PANEL(Performed 09/30/2016) Performed for Supervision of high-risk of young multigravida (HCC) * RPR(Performed 09/30/2016) Performed for Supervision of high-risk of young multigravida (HCC) * RUBELLA IMMUNE STATUS(Performed 09/30/2016) Performed for Supervision of high-risk of young multigravida (HCC) * HEPATITIS B SURFACE ANTIGEN W RFLX CONFIRMATION(Performed 09/30/2016) Performed for Supervision of high-risk of young multigravida (HCC) * CBC W AUTO DIFFERENTIAL(Performed 09/30/2016) Performed for Supervision of high-risk of young multigravida (HCC) * GLUCOSE CHALLENGE(Performed 09/30/2016) Performed for Supervision of high-risk of young multigravida (HCC) * HIV-1 HIV-2 ANTIBODY + HIV P24 AG PANEL(Performed 09/30/2016) Performed for Supervision of high-risk of young multigravida (HCC) * OBSTETRIC PANEL (BEAKER)(Performed 09/30/2016) Performed for Supervision of high-risk of young multigravida (HCC) * GLUCOSE PROTEIN KETONE URINE - POINT OF CAR(Performed 09/30/2016) Performed for Supervision of high-risk of young multigravida (HCC) * GLUCOSE PROTEIN KETONE URINE - POINT OF CAR(Performed 09/16/2016) Performed for Supervision of high-risk of young multigravida (HCC) * IMAGING/RADIOLOGY/XRAY RESULTS ORDER(Performed 09/03/2016) * LAB RESULTS ORDER(Performed 09/02/2016) * CARDIAC EKG ORDER(Performed 09/02/2016) * CARDIAC RHYTHM STRIP ORDER(Performed 09/02/2016) * TYPE + SCREEN PANEL(Performed 09/01/2016) * GLUCOSE - POINT OF CARE(Performed 09/01/2016) * FERRITIN(Performed 09/01/2016) * IRON + TRANSFERRIN PANEL(Performed 09/01/2016) * CBC W AUTO DIFFERENTIAL(Performed 09/01/2016) * BASIC METABOLIC PANEL (CALCIUM TOTAL)(Performed 09/01/2016) * PHOSPHORUS BLOOD(Performed 09/01/2016) * MAGNESIUM BLOOD(Performed 09/01/2016) * GLUCOSE - POINT OF CARE(Performed 08/31/2016) * URINALYSIS REFLEX MICROSCOPIC REFLEX CULTURE(Performed 08/31/2016) * CULTURE URINE(Performed 08/31/2016) * GLUCOSE - POINT OF CARE(Performed 08/31/2016) * SONOGRAM - COMPLETE(Performed 08/31/2016) * GLUCOSE - POINT OF CARE(Performed 08/31/2016) * CULTURE VRE(Performed 08/31/2016) * CULTURE MRSA(Performed 08/31/2016) * CULTURE MRSA(Performed 08/31/2016) * XR CHEST 1VW PORTABLE(Performed 08/31/2016) Performed for Acute respiratory failure with hypoxia (HCC), Overdose, intentional self-harm, initial encounter (HCC) * CK BLOOD(Performed 08/31/2016) * PT PTT PANEL(Performed 08/31/2016) * HEPATIC FUNCTION PANEL(Performed 08/31/2016) * BASIC METABOLIC PANEL (CALCIUM TOTAL)(Performed 08/31/2016) * CBC W AUTO DIFFERENTIAL(Performed 08/31/2016) * BLOOD GASES ARTERIAL(Performed 08/31/2016) Results * SONOGRAM - COMPLETE (09/03/2021 10:39 AM CDT) Only the most recent of4 resultswithin the time period is included. Anatomical Region Laterality Modality Other 09/03/2021 10:3 9 AM CDT Narrative 09/03/2021 11:37 AM CDT [facility] PHONE: FAX: Pat. Name: MEY SILVESTRE. No: [id number] Study Date: 09/03/2021 10:39am , Age: 06 1990, 31 Pregnancies: 5, Para 3, Ab 1 Height: 63 in Weight: 122 lb LMP: Unknown GA by Base: 30w5d RAY: 11/07/2021 GA by US: 29w4d RAY: 11/15/2021 GA Selected: 30w5d ([facility]) RAY: 11/07/2021 Referring MD: Jamarcus Boyce MD Cooler Tender: Reyna Swift RDMS CPT4: 39818 BMI: 21.61 Hist/Ind: HC 3% on outside U/S Hx of x 3 G2: IUFD 20 weeks, D & C G5 Penta screen negative MEASUREMENTS & AGE GROWTH EVALUATION Measurement GA Range Srce %for GA Ratios ----- ---- ------- BPD 7.1 cm 28w3d (22b8p-86r5r) Hadl BPD 1% FL/BPD 0.82 (0.71 - 0.87) HC 27.4 cm 30w0d (88y6l-51m7k) Hadl HC 5% FL/AC 0.22 (0.20 - 0.24) AC 26.8 cm 30w6d (30h9t-87w9r) Hadl AC 52% HC/AC 1.02 (0.97 - 1.16) FL 5.8 cm 30w1d (46s1u-33t9k) Hadl FL 23% CI 0.70 (0.70 - 0.86) HL 5.1 cm 29w5d (52f7s-77u3w) Freddy HL 33% GA for sonogram 29w4d (29y6s-60o2h) Weight Estimate: based on (BPD,HC,AC,FL) Hadlock Weight: 1563 gm (1334-1791gm) Had : 3lbs, 7oz Normal: 1693 gm (1270-2117gm) Had Wt% 28% for 30w5d Heart Rate: 147 bpm Amniotic Fluid Index: 16.8cm (08.9-23.7) Q1: 5.0cm Q2: 5.0cm Q3: 3.6cm Q4: 3.2cm EVAL, PLACENTA Presentation: cephalic Placenta: anterior:fundal Heart Rate: 147 bpm Amniotic Fluid Volume: normal CLINICAL SUMMARY IMPRESSION: Single, live, intrauterine at 30w5d size is within normal limits The HC is 5th% (not c/w microcephaly which is HC < 3SD) Amniotic fluid volume: within normal limits No overt malformations were seen within the limitations of ultrasound Anterior placenta is clear of lower segment, no current evidence of accreta spectrum RECOMMEND: Ultrasound in as clinically indicated Thank you for allowing us the opportunity to care for your patient David Mcneal MD <Electronic Signature> 09/03/2021 11:37am Leland Payan MD [facility] ORDERABLES * US BREAST LEFT LTD (10/25/2018 3:45 PM CDT) Anatomical Region Laterality Modality Breast Left Mammography 10/25/2018 3:41 PM CDT Impressions 10/25/2018 4:02 PM CDT IMPRESSION: Left axillary lymph node corresponds to palpable abnormality. ASSESSMENT: BI-RADS Category 2: Benign finding(s). RECOMMENDATION: Clinical follow-up. Patient was instructed to return for follow-up ultrasound if lymph node continues to enlarge Breast cancer screening scheduled to be determined by Dr. Dobbs Findings and recommendations discussed with the patient by Dr. Nitza Benoit, . DWAYNE VARGAS M.D. have personally reviewed and interpreted this examination/study. This report was electronically signed by DWAYNE VARGAS M.D. on 10/25/2018 4:02 PM . Narrative 10/25/2018 4:02 PM CDT EXAMINATION: Limited unilateral left breast ultrasound HISTORY: 28-year-old female with enlarging palpable abnormality of the left breast axillary tail. She has a history of a biopsied left breast mass consistent with reactive lymph node. She has a family history of breast cancer in her mother and is under the care of Dr. Jones COMPARISON: No prior study is available for comparison at the time of this dictation. FINDINGS: Limited ultrasound of the left axillary breast demonstrates a solid well-defined oval parallel hypoechoic structure measuring 1.4 x 0.5 x 1.2 cm with a vascular fatty hilum consistent with benign lymph node. Kathy Dobbs MD ORDERABLES * PT-INR [facility] (05/12/2018 11:02 AM CDT) PT 12.4 12.1 - 14.8 Seconds 05/12/2018 11:44 AM T [facility] INR 1.0 See Comment 05/12/2018 11:44 AM [facility] Comment: The suggested therapeutic range for standard coumadin (warfarin) therapy is an INR of 2.0-3.0. For high-risk patients (Mechanical Mitral Valve Prosthesis, etc.), the suggested prophylactic therapeutic range is an INR of 2.5-3.5. Blood BLOOD SPECIMEN / Unknown Lab Venipuncture / Unknown 05/12/2018 11:02 AM CDT 05/12/2018 11:32 AM CDT Eloy Hinds MD LAB - COAGULATION OR DERABLES Performing Organization Address [facility] Co de Phone Number [address] [phone] * PATHOLOGY PERIPHERAL SMEAR REVIEW (05/12/2018 11:02 AM CDT) Pathologist [facility] Pathology Diff Review DIFFERENTIAL REVIEW - CONFIRMED DIFFERENTIAL REVIEW - CONFIRMED 05/16/2018 9:43 AM CDT [facility] Comment: Review of the peripheral blood smear confirms the CBC data and differential count. Leukocytes are normal in number, relative proportions, and morphology. There is very mild normochromic, normocytic anemia with no significant anisopoikilocytosis. Platelets are normal in number, size, and granularity. Anamika Lentz MD Blood BLOOD SPECIMEN / Unknown Lab Venipuncture / Unknown 05/12/2018 11:02 AM CDT 05/12/2018 11:32 AM CDT Eloy Hinds MD LAB - PATHOLOGY/CYTO LOGY ORDERABLES Performing Organization Address [facility] Co de Phone Number [address] [phone] * (ABNORMAL) DIFFERENTIAL MANUAL (05/12/2018 11:02 AM CDT) [facility] WBC (corrected for NRBC) 7.5 10 3/uL 05/12/2018 5:38 PM CDT [facility] Total Cell Count 100 05/12/2018 5:38 PM CDT [facility] Neutrophils Absolute Manual 3.75 1.60 - 7.00 10 3/uL 05/12/2018 5:38 PM T [facility] Comment:(BANDS+SEGS) x WBC = NEUT # (ANC) Lymphocyte Absolute Manual 3.30(H) 0.80 - 2.90 10 3/uL 05/12/2018 5:38 PM CDT [facility] Monocytes Absolute Manual 0.30 0.14 - 0.66 10 3/uL 05/12/2018 5:38 PM [facility] Eosinophils Absolute Manual 0.15 0.00 - 0.22 10 3/uL 05/12/2018 5:38 PM [facility] Neutrophil % Manual 50 30 - 60 % 05/12/2018 5:38 PM [facility] Lymphocyte % Manual 44 20 - 45 % 05/12/2018 5:38 PM [facility] Monocytes % Manual 4 2 - 10 % 05/12/2018 5:38 PM [facility] Eosinophils % Manual 2 1 - 6 % 05/12/2018 5:38 PM [facility] Platelet Estimate Adequate Adequate 05/12/2018 5:38 PM [facility] RBC Morphology Normal 05/12/2018 5:38 PM [facility] Blood BLOOD SPECIMEN / Unknown Lab Venipuncture / Unknown 05/12/2018 11:02 AM CDT 05/12/2018 11:32 AM CDT Eloy Hinds MD LAB - HEMATOLOGY ORD ERABLES [address] [phone] * (ABNORMAL) CBC WITH DIFFERENTIAL (05/12/2018 11:02 AM CDT) Only the most recent of6 resultswithin the time period is included. WBC 7.5 3.5 - 10.5 10 3/uL 05/12/2018 5:38 PM [facility] RBC 4.09 3.90 - 5.00 10 6/uL 05/12/2018 5:38 PM [facility] Hemoglobin 11.8(L) 12.0 - 15.5 g/dL 05/12/2018 5:38 PM [facility] Hematocrit 36.2 35.0 - 45.0 % 05/12/2018 5:38 PM [facility] MCV 88.5 81.0 - 97.0 fL 05/12/2018 5:38 PM [facility] MCH 28.9 28.0 - 34.0 pg 05/12/2018 5:38 PM [facility] MCHC 32.6 32.0 - 36.0 g/dL 05/12/2018 5:38 PM [facility] Platelet Count 261 150 - 400 10 3/uL 05/12/2018 5:38 PM [facility] RDW-SD 40.5 36.0 - 50.0 fL 05/12/2018 5:38 PM [facility] RDW-CV 12.5 11.2 - 14.8 % 05/12/2018 5:38 PM [facility] MPV 9.1(L) 9.3 - 12.8 fL 05/12/2018 5:38 PM [facility] nRBC Absolute 0.00 0 10 3/uL 05/12/2018 5:38 PM [facility] nRBC Auto 0.0 0 /100 WBC 05/12/2018 5:38 PM [facility] Blood BLOOD SPECIMEN / Unknown Lab Venipuncture / Unknown 05/12/2018 11:02 AM CDT 05/12/2018 11:32 AM T Eloy Hinds MD LAB - HEMATOLOGY ORD ERABLES [address] [phone] * (ABNORMAL) COMPREHENSIVE METABOLIC PANEL (05/12/2018 11:02 AM T) BUN 20 7 - 26 mg/dL 05/12/2018 11:53 AM [facility] Creatinine 0.9 0.6 - 1.2 mg/dL 05/12/2018 11:53 AM [facility] Sodium 143 136 - 145 mmol/L 05/12/2018 11:53 AM [facility] Potassium 3.8 3.5 - 4.5 mmol/L 05/12/2018 11:53 AM [facility] Chloride 108(H) 98 - 107 mmol/L 05/12/2018 11:53 AM [facility] CO2 26 22 - 29 mmol/L 05/12/2018 11:53 AM [facility] Glucose 80 70 - 115 mg/dL 05/12/2018 11:53 AM CDT [facility] Calcium 9.5 8.4 - 10.2 mg/dL 05/12/2018 11:53 AM [facility] Protein Total 6.8 6.0 - 8.3 g/dL 05/12/2018 11:53 AM [facility] Albumin 4.0 3.4 - 5.0 g/dL 05/12/2018 11:53 AM [facility] Bilirubin Total 0.5 0.2 - 1.2 mg/dL 05/12/2018 11:53 AM [facility] Alkaline Phosphatase 106 40 - 150 Units/L 05/12/2018 11:53 AM [facility] ALT 20 0 - 55 Units/L 05/12/2018 11:53 AM [facility] AST 21 5 - 34 Units/L 05/12/2018 11:53 AM [facility] Anion Gap 13 8 - 18 05/12/2018 11:53 AM [facility] BUN/Creatinine Ratio 22 7 - 23 05/12/2018 11:53 AM [facility] Osmolality Calculated 298 270 - 300 mOsm/kg 05/12/2018 11:53 AM [facility] Albumin/Globulin Ratio 1.4 1.1 - 2.3 05/12/2018 11:53 AM [facility] eGFR >60 >60 mL/min/1.7 3 m2 05/12/2018 11:53 AM [facility] Blood BLOOD SPECIMEN / Unknown Lab Venipuncture / Unknown 05/12/2018 11:02 AM CDT 05/12/2018 11:32 AM T Eloy Hinds MD LAB - CHEMISTRY [facility]EL [facility] Organization Address City/State/ZIP Co de Phone Number [address] [phone] * IMAGING/RADIOLOGY/XRAY RESULTS ORDER (01/06/2017 9:05 AM GOLD BUYER) Only the most recent of2 resultswithin the time period is included. Anatomical Region Laterality Modality Other Narrative 01/06/2017 9:05 AM GOLD BUYER Ordered by an unspecified provider. Scanned Document IMAGING * PATHOLOGY/GENETICS HISTORICAL-ONBASE (12/31/2016) 12/31/2016 Historical Provider LAB - CHEMISTRY O RDERABLES [place] [id number] [address] * (ABNORMAL) BLOOD GASES CORD TANNER (ISTAT) (12/28/2016 5:58 PM GOLD BUYER) pH Cord Venous POCT 7.39 7.28 - 7.40 pH 12/28/2016 7:02 PM GOLD BUYER [facility] pCO2 Cord Venous POCT 44 35 - 45 mmHg 12/28/2016 7:02 PM GOLD BUYER [facility] pO2 Cord Venous POCT 21(L) 22 - 33 mmHg 12/28/2016 7:02 PM GOLD BUYER [facility] HCO3 Cord Arterial POCT 27(H) 22 - 24 mmol/L 12/28/2016 7:02 PM GOLD BUYER [facility] BE Cord Venous POCT Calc 1 -6.4 - 1.6 mmol/L 12/28/2016 7:02 PM GOLD BUYER [facility] TCO2 Cord Venous POCT 28 22 - 30 mmol/L 12/28/2016 7:02 PM GOLD BUYER [facility] O2 Saturation % Cord Venous Calc POCT 33 % 12/28/2016 7:02 PM GOLD BUYER [facility] Site CORD TANNER 12/28/2016 7:02 PM GOLD BUYER [facility] Sample iSTAT CORD V 12/28/2016 7:02 PM GOLD BUYER [facility] Blood CORD BLOOD SPECIMEN / Unknown 12/28/2016 5:58 PM GOLD BUYER 12/28/2016 7:02 PM GOLD BUYER Anamika Esteves MD LAB - P OINT OF CARE ORDERABLES [facility] [address] [place] [address] * (ABNORMAL) BLOOD GASES CORD ART (ISTAT) (12/28/2016 5:47 PM GOLD BUYER) pH Cord Arterial POCT 7.26 7.20 - 7.34 pH 12/28/2016 7:02 PM GOLD BUYER [facility] pCO2 Cord Arterial POCT 55.7(H) 45 - 55 mmHg 12/28/2016 7:02 PM GOLD BUYER [facility] pO2 Cord Arterial POCT 15 12 - 25 mmHg 12/28/2016 7:[address] [facility] HCO3 Cord Arterial POCT 25.2(H) 22 - 24 mmol/L 12/28/2016 7:[address] [facility] BE Cord Arterial POCT -3(L) -2.9 - 8.3 mmol/L 12/28/2016 7:[address] [facility] TCO2 Cord Arterial POCT 27 mmol/L 12/28/2016 7:[address] [facility] O2 Saturation Cord Art % Calc POCT 14 % 12/28/2016 7:02 PM GOLD BUYER [facility] Site CORD ART 12/28/2016 7:[address] [facility] Sample iSTAT CORD A 12/28/2016 7:[address] [facility] Blood CORD BLOOD SPECIMEN / Unknown 12/28/2016 5:47 PM GOLD BUYER 12/28/2016 7:02 PM GOLD BUYER Anamika Esteves MD LAB - P [facility] ORDERABLES [facility] [address] [place] [address] * GROSS + MICRO EXAM (STL) (12/28/2016 5:38 PM GOLD BUYER) Case Report Surgical Pathology Report Case: [id number] Authorizing Provider: Jamarcus Roper MD Collected: 12/28/2016 05:38 PM Ordering Location: [facility] Received: 12/30/2016 07:39 AM Pathologist: Camelia Boland MD Specimen: Placenta 12/31/2016 3:51 PM GOLD BUYER [facility] Final Diagnosis 1. Placenta, delivery: -- Third-trimester placenta, 590 grams -- Three-vessel umbilical cord with no evidence of vasculitis or funisitis -- Chorioamnionic membrane with no pathologic diagnosis BRISEYDA/MC/na 12/31/2016 3:51 PM GOLD BUYER [facility] Gross Description The specimen is received in formalin in one container labeled with the patient's name, Mey Silvestre, and placenta, and consists of a 18.2 x 17.1 cm santos placenta with attached membrane and umbilical cord (18.7 cm in length with a diameter up to 1.2 cm). The umbilical cord is white-gutierrez, glistening, eccentrically inserted, 4.0 cm. The membrane is brown-gutierrez and glistening and torn, shortest distance is at the placental margin, longest distance is 13.1 cm. After trimming, the placenta weighs 590 grams. The surface is blue-mercado and glistening and the maternal surface shows brown-gutierrez coagula with roughly intact cotyledons. The umbilical cord is serially sectioned revealing three vessels. The placenta is serially sectioned revealing dark red-gutierrez parenchyma with no hemorrhage or infarction. The placenta thickness ranges from 1.2-2.8 cm. The specimen is submitted as follows: A1 - senior sales representative section of the umbilical cord and membrane A2 and A3 - senior sales representative section of the placenta. Zenia 12/31/2016 3:[address] [facility] Microscopic Description Sections from placenta show three vessel umbilical cord with no evidence of funisitis or vasculitis. The chorioamnionic membrane shows no evidence of inflammation or meconium staining. The chorionic villi are mature and well vascularized with no evidence of villitis. BRISEYDA/NITHIN/michelle 12/31/2016 3:[address] [facility] Disclaimer All histochemical and/or immunohistochemical results are interpreted with controls that demonstrate appropriate staining reactions before reporting results. Note on use of immunocytochemistry reagents: This test was developed and its performance characteristic determined by [facility], Department of Laboratory Medicine. It has not been cleared or approved by the U.S. Food and Drug Administration (FDA). The FDA has determined that such clearance or approval is not necessary. The test is used for clinical purpose. It should not be regarded as investigational or for research. This laboratory is certified to perform high complexity testing. 12/31/2016 3:[address] [facility] Embedded Images 12/31/2016 3:[address] [facility] Pathology/Cytolo gy ENTIRE PLACENTA / Unknown 12/28/2016 5:38 PM GOLD BUYER 12/30/2016 7:39 AM GOLD BUYER Jamarcus Roper MD LAB - PATHOLOGY/CYT OLOGY ORDERABLES Performing Organization Address City/[facility] Co de Phone Number [facility] [address] [place] [address] * DRUG SCREEN TOX URINE PANEL (12/28/2016 1:36 PM GOLD BUYER) Amphetamines Screen Urine Not Detected Not Detected 12/28/2016 2:[address] [facility] Barbiturates Screen Urine Not Detected Not Detected 12/28/2016 2:[address] [facility] Benzodiazepines Screen Urine Not Detected Not Detected 12/28/2016 2:[address] [facility] Cannabinoids Screen Urine Not Detected Not Detected 12/28/2016 2:[address] [facility] Cocaine Screen Urine Not Detected Not Detected 12/28/2016 2:[address] [facility] Methadone Screen Urine Not Detected Not Detected 12/28/2016 2:[address] [facility] Opiate Screen Urine Not Detected Not Detected 12/28/2016 2:[address] [facility] Phencyclidine Screen Urine Not Detected Not Detected 12/28/2016 2:[address] [facility] Urine URINE / Unknown Collection / Unknown 12/28/2016 1:36 PM GOLD BUYER 12/28/2016 1:45 PM GOLD BUYER Narrative [facility] - 12/28/2016 2:19 PM GOLD BUYER This drug screen is designed for MEDICAL purposes only. It is not to be used for legal purposes, including but not limited to worker's comp, police investigations, occupational issues, child custody, etc. Any positive result is only presumptive and must be confirmed with a separate confirmatory test ordered by the physician. Drug Screening Test Cutoff Values: AMPHETAMINES 1000 ng/mL BARBITURATES 200 ng/mL BENZODIAZEPINES 200 ng/mL CANNABINOIDS(THC) 50 ng/mL COCAINE 300 ng/mL METHADONE 300 ng/mL OPIATES 300 ng/mL PHENCYCLIDINE(PCP)25 ng/mL Sobia Alvarez MD LAB - URINE CHEMISTR Y ORDERABLES Performing Organization Address City/[facility]/ZIP Co de Phone Number [facility] [address] [place] [address] * TYPE + SCREEN PANEL (12/28/2016 12:14 PM GOLD BUYER) Only the most recent of3 resultswithin the time period is included. ABO O 12/28/2016 1:15 PM GOLD BUYER [facility] Rh Type Positive 12/28/2016 1:15 PM GOLD BUYER [facility] Antibody Screen Negative 12/28/2016 1:15 PM GOLD BUYER [facility] Blood Bank BLOOD SPECIMEN / Unknown Venipuncture / Unknown 12/28/2016 12:14 PM GOLD BUYER 12/28/2016 12:20 PM GOLD BUYER Saniya Euceda MD LAB - BLOOD BANK ORD ERABLES Performing Organization Address City/[facility]/ZIP Co de Phone Number [facility] [address] * GLUCOSE PROTEIN KETONE URINE - POINT OF CARE (12/23/2016 10:50 AM CDT) Only the most recent of6 resultswithin the time period is included. Glucose UA neg Negative [facility] TEST[facility] Protein UA neg Negative [facility] Ketone UA neg Negative [facility] QC Verified Yes Yes [facility] POC T TESTING Urine URINE / Unknown 12/23/2016 1 0:50 AM CDT Lencho Sierra MD LAB - POINT OF CARE ORDERABLES Performing Organization Address [facility] Co de Phone Number [facility] POCT TESTING [address] [place] [address] * CULTURE STREP B (12/16/2016 12:49 PM CDT) Culture Strep B Negative for beta-hemolytic Streptococcus Group B SAMANTHA 12/19/2016 9:48 AM CDT [facility] MICROBIOLOGY Microbiology MISCELLANEOUS SAMPLES / Unknown Collection / Unknown 12/16/2016 12:49 PM CDT 12/16/2016 12:57 PM CDT Aixa Shaikh APRN-CHAIR LAB - MICROBI OLOGY ORDERABLES Performing Organization Address City/[facility]/ZIP Co de Phone Number [facility] MICROBIOLOGY [address] [place] [address], [facility] [phone] * TSH (11/04/2016 12:32 PM CDT) Pathologist [facility] TSH 0.994 0.358 - 3.740 uIU/mL 11/04/2016 1:24 PM CDT [facility] Blood BLOOD SPECIMEN / Unknown Venipuncture / Unknown 11/04/2016 12:32 PM CDT 11/04/2016 12:46 PM CDT Lin Kuhn MD LAB - CHEMISTRY DANIEL MEJIAS [facility] [address] [place] [address] * T4 FREE (11/04/2016 12:32 PM CDT) [facility] T4 Free 0.77 0.65 - 1.34 ng/dL 11/04/2016 1:24 PM CDT [facility] Blood BLOOD SPECIMEN / Unknown Venipuncture / Unknown 11/04/2016 12:32 PM CDT 11/04/2016 12:46 PM CDT Lin Kuhn MD LAB - CHEMISTRY DANIEL MEJIAS Performing Organization Address [facility] Co de Phone Number [facility] [address] [place] [phone] * HIV-1 HIV-2 ANTIBODY + HIV P24 AG PANEL (09/30/2016 8:53 AM CDT) [facility] HIV1/2 Ab + P24 Ag Non Reactive Non Reactive 09/30/2016 5:26 PM CDT [facility] Blood BLOOD SPECIMEN / Unknown Venipuncture / Unknown 09/30/2016 8:53 AM CDT 09/30/2016 9:42 AM CDT Narrative [facility] - 09/30/2016 5:26 PM CDT No Laboratory evidence of HIV infection. Monique Merino MD LAB - CHEMISTRY DANIEL MEJIAS [facility] [address] [place] [phone] * RUBELLA IMMUNE STATUS (09/30/2016 8:53 AM CDT) Pathologist [facility] Rubella Antibody IgG Immune Status Positive - Immune 09/30/2016 10:29 AM CDT [facility] Blood BLOOD SPECIMEN / Unknown Venipuncture / Unknown 09/30/2016 8:53 AM CDT 09/30/2016 9:42 AM CDT Monique Merino MD LAB - CHEMISTRY DANIEL MEJIAS [facility] [address] [place] [phone] * RPR (09/30/2016 8:53 AM CDT) Pathologist [facility] RPR Non Reactive Non Reactive 09/30/2016 10:55 AM CDT [facility] Blood BLOOD SPECIMEN / Unknown Venipuncture / Unknown 09/30/2016 8:53 AM CDT 09/30/2016 9:41 AM CDT Monique Merino MD LAB - CHEMISTRY DANIEL MEJIAS Performing Organization Address City/[facility]/ZIP Co de Phone Number [facility] [address] [place] [phone] * HEPATITIS B SURFACE ANTIGEN W RFLX CONFIRMATION (09/30/2016 8:53 AM CDT) Pathologist [facility] HBsAg Non Reactive Non Reactive 09/30/2016 11:04 AM CDT [facility] Blood BLOOD SPECIMEN / Unknown Venipuncture / Unknown 09/30/2016 8:53 AM CDT 09/30/2016 9:41 AM CDT Monique Merino MD LAB - CHEMISTRY DANIEL MEJIAS Performing Organization Address City/[facility]/ZIP Co de Phone Number [facility] [address] [place] [phone] * GLUCOSE CHALLENGE (09/30/2016 8:53 AM CDT) Pathologist [facility] Glucose Challenge 94 64 - 140 mg/dL 09/30/2016 10:11 AM CDT [facility] Glucose Challenge Time 09/30/2016 10:11 AM CDT [facility] Blood BLOOD SPECIMEN / Unknown Venipuncture / Unknown 09/30/2016 8:53 AM CDT 09/30/2016 9:42 AM CDT Monique Merino MD LAB - CHEMISTRY ORDE MAGALIE Performing Organization Address [facility]/ZIP Co de Phone Number [facility] [address] [place], [place] [phone] * LAB RESULTS ORDER (09/02/2016 10:20 PM CDT) Narrative 09/02/2016 10:20 PM CDT Ordered by an unspecified provider. Scanned Document LAB - THERAPEUTIC DR UG MONITORING ORDERABLES * CARDIAC EKG ORDER (09/02/2016 10:20 PM CDT) Narrative 09/02/2016 10:20 PM CDT Ordered by an unspecified provider. Scanned Document CARDIAC SERVICES ORD ERABLES * CARDIAC RHYTHM STRIP ORDER (09/02/2016 10:18 PM CDT) Narrative 09/02/2016 10:18 PM CDT Ordered by an unspecified provider. Scanned Document CARDIAC SERVICES ORD ERABLES * GLUCOSE - POINT OF CARE (09/01/2016 5:59 AM CDT) Only the most recent of4 resultswithin the time period is included. [facility] Glucose WB/POC 81 70 - 106 mg/dL 09/01/2016 9:22 AM CDT [facility] Specimen Type CAPILLARY BLOOD 09/01/2016 9:22 AM CDT [facility] Blood BLOOD SPECIMEN / Unknown 09/01/2016 5:59 AM CDT 09/01/2016 9:22 AM CDT Lindsey Saravia MD LAB - POINT OF CARE ORDERABLES Performing Organization Address [facility]/ZIP Co de Phone Number [facility] [address] [place] [phone] * (ABNORMAL) BASIC METABOLIC PANEL (CALCIUM TOTAL) (09/01/2016 5:29 AM CDT) Only the most recent of2 resultswithin the time period is included. Glucose 85 74 - 106 mg/dL 09/01/2016 6:30 AM CDT [facility] Sodium 142 136 - 145 mmol/L 09/01/2016 6:30 AM CDT [facility] Potassium 3.7 3.5 - 5.1 mmol/L 09/01/2016 6:30 AM CDT [facility] Chloride 109(H) 98 - 107 mmol/L 09/01/2016 6:30 AM CDT [facility] CO2 24 22 - 31 mmol/L 09/01/2016 6:30 AM CDT [facility] Calcium 8.2(L) 8.5 - 10.1 mg/dL 09/01/2016 6:30 AM CDT [facility] Anion Gap 9 8 - 16 mmol/L 09/01/2016 6:30 AM CDT [facility] BUN 7 7 - 21 mg/dL 09/01/2016 6:30 AM CDT [facility] Creatinine 0.50 0.50 - 1.30 mg/dL 09/01/2016 6:30 AM CDT [facility] eGFR by MDRD >60 >60 mL/min/1.7 3m2 09/01/2016 6:30 AM CDT [facility] eGFR by MDRD >60 >60 mL/min/1.7 3m2 09/01/2016 6:30 AM CDT [facility] Blood BLOOD SPECIMEN / Unknown Lab Venipuncture / Unknown 09/01/2016 5:29 AM CDT 09/01/2016 5:54 AM CDT Nando Ledesma MD LAB - CHEMISTRY DANIEL MEJIAS [facility] Organization Address City/State/ZIP Co de Phone Number [facility] [address] [place] [address] * PHOSPHORUS BLOOD (09/01/2016 5:29 AM CDT) Phosphorus 3.9 2.5 - 4.9 mg/dL 09/01/2016 6:08 AM T [facility] Blood BLOOD SPECIMEN / Unknown Lab Venipuncture / Unknown 09/01/2016 5:29 AM CDT 09/01/2016 5:54 AM CDT Nando Ledesma MD LAB - CHEMISTRY DANIEL MEJIAS Performing Organization Address City/[facility]/ZIP Co de Phone Number [facility] [address] [place] [phone] * MAGNESIUM BLOOD (09/01/2016 5:29 AM CDT) Magnesium 1.7 1.6 - 2.6 mg/dL 09/01/2016 6:08 AM CDT [facility] Blood BLOOD SPECIMEN / Unknown Lab Venipuncture / Unknown 09/01/2016 5:29 AM CDT 09/01/2016 5:54 AM CDT Nando Ledesma MD LAB - CHEMISTRY DANIEL MEJIAS Performing Organization Address [facility] Co de Phone Number [facility] [address] [place] [phone] * (ABNORMAL) IRON + TRANSFERRIN PANEL (09/01/2016 5:29 AM CDT) Iron 45(L) 50 - 170 ug/dL 09/01/2016 9:16 AM CDT [facility] Transferrin 272 250 - 380 mg/dL 09/01/2016 9:16 AM CDT [facility] TIBC Calculated 340 240 - 450 mg/dL 09/01/2016 9:16 AM CDT [facility] Iron Saturation % 13(L) 20 - 50 % 09/01/2016 9:16 AM CDT [facility] Blood BLOOD SPECIMEN / Unknown Lab Venipuncture / Unknown 09/01/2016 5:29 AM CDT 09/01/2016 9:00 AM CDT Gina Pugh MD LAB - CHEMISTRY DANIEL MEJIAS Performing Organization Address [facility] Co de Phone Number [facility] [address] [place] [phone] * FERRITIN (09/01/2016 5:29 AM CDT) Ferritin 24 10 - 291 ng/mL 09/01/2016 9:16 AM CDT [facility] Blood BLOOD SPECIMEN / Unknown Lab Venipuncture / Unknown 09/01/2016 5:29 AM CDT 09/01/2016 9:00 AM CDT Gina Pugh MD LAB - CHEMISTRY DANIEL MEJIAS Performing Organization Address City/State/[facility] Co de Phone Number [facility] [address] [place] [address] * (ABNORMAL) URINALYSIS ROUTINE W/REFLEX TO CULTURE (08/31/2016 9:55 PM CDT) Pathologist [facility] Color UA Yellow Straw, Yellow, Dark Yellow 08/31/2016 10:15 PM CDT [facility] Clarity UA Clear 08/31/2016 10:15 PM CDT [facility] Specific [place] UA 1.028 1.005 - 1.030 08/31/2016 10:15 PM CDT [facility] pH UA 6.0 5.0 - 8.0 pH 08/31/2016 10:15 PM CDT [facility] Protein UA Negative Negative 08/31/2016 10:15 PM CDT [facility] Blood UA Negative Negative 08/31/2016 10:15 PM CDT [facility] Leukocyte UA Trace(A) Negative 08/31/2016 10:15 PM CDT [facility] Nitrite UA Negative Negative 08/31/2016 10:15 PM CDT [facility] Glucose UA Negative Negative 08/31/2016 10:15 PM CDT [facility] Ketone UA Trace(A) Negative 08/31/2016 10:15 PM CDT [facility] Bilirubin UA Negative Negative 08/31/2016 10:15 PM CDT [facility] Urobilinogen UA 0.2 0.1 - 1.0 EU/dL 08/31/2016 10:15 PM CDT [facility] WBC UA Auto 2-5 0-2, 2-5 # /hpf 08/31/2016 10:15 PM CDT [facility] RBC UA Auto 2-5 0-2, 2-5 # /hpf 08/31/2016 10:15 PM CDT [facility] Epithelial Cell UA Auto 2-5 0-2, 2-5 # /hpf 08/31/2016 10:15 PM CDT [facility] Reflex Status Culture to follow 08/31/2016 10:15 PM CDT [facility] Urine URINE SPECIMEN OBTAINED BY CLEAN CATCH PROCEDURE / Unknown Collection / Unknown 08/31/2016 9:55 PM CDT 08/31/2016 10:07 PM CDT Lanette Blanco APRN-CHAIR LAB - URINAL YSIS ORDERABLES Performing Organization Address [facility]/ZIP Co de Phone Number [facility] [address] [place] [address] * CULTURE URINE (08/31/2016 9:55 PM CDT) Culture 10,000-50,000 CFU/mL urogenital hoang [facility] 09/02/2016 2:[address] [facility]CRO[facility] Urine URINE SPECIMEN OBTAINED BY CLEAN CATCH PROCEDURE / Unknown Collection / Unknown 08/31/2016 9:55 PM CDT 08/31/2016 10:07 PM CDT Lanette Blanco APRN-CHAIR LAB - MICROB IOLOGY ORDERABLES Performing Organization Address [facility] Co de Phone Number [facility] MICROBIOLOGY [address] [place] [address], [facility] [phone] * CULTURE VRE (08/31/2016 6:31 AM CDT) Culture Negative for vancomycin-resi stant Enterococci (VRE) SAMANTHA 09/01/2016 11:[address] [facility] Stool RECTAL SWAB / Unknown Collection / Unknown 08/31/2016 6:31 AM CDT 08/31/2016 6:37 AM CDT Nando Ledesma MD LAB - MICROBIOLOGY O RDERABLES Performing Organization Address [facility] Co de Phone Number [facility] MICROBIOLOGY [address] [place] [address], [facility] [phone] * CULTURE MRSA (08/31/2016 6:31 AM CDT) Only the most recent of2 resultswithin the time period is included. Culture Negative for methicillin-resist ant Staphylococcus aureus (MRSA) SAMANTHA 09/01/2016 11:[address] [facility]CRO[facility] Microbiology RECTAL SWAB / Unknown Collection / Unknown 08/31/2016 6:31 AM CDT 08/31/2016 6:37 AM CDT Nando Ledesma MD LAB - MICROBIOLOGY O RDARTIE [facility] MICROBIOLOGY [address] [place] [address], [facility] [phone] * XR CHEST 1VW PORTABLE (08/31/2016 3:55 AM CDT) Anatomical Region Laterality Modality Chest Radiographic Katie ging 08/31/2016 7:09 AM CDT Impressions 08/31/2016 7:17 AM CDT ET tube just above the bernie. Edited by Karla Easton on 08/31/2016 7:14 AM Narrative 08/31/2016 7:17 AM CDT CHEST X-RAY SINGLE VIEW. HISTORY: Intubation, tube placement. A single view of the chest shows an ET tube just above the bernie. NG tube projects in the stomach. Heart size is in the normal range. Lungs are clear. Procedure Note Claudio Altman MD - 08/31/2016 CHEST X-RAY SINGLE VIEW. HISTORY: Intubation, tube placement. A single view of the chest shows an ET tube just above the bernie. NG tube projects in the stomach. Heart size is in the normal range. Lungs are clear. IMPRESSION ET tube just above the bernie. Edited by Karla Easton on 08/31/2016 7:14 AM Nando Ledesma MD DIAGNOSTIC IMAGING O RDERAJULIOCESAR * PT PTT PANEL (08/31/2016 3:53 AM CDT) PT 9.7 9.5 - 11.6 sec 08/31/2016 5:10 AM CDT [facility] INR 0.9 0.9 - 1.1 08/31/2016 5:10 AM CDT [facility] PTT 23.8 21.0 - 32.0 sec 08/31/2016 5:10 AM CDT [facility] Blood BLOOD SPECIMEN / Unknown Venipuncture / Unknown 08/31/2016 3:53 AM CDT 08/31/2016 3:[address] [facility] - 08/31/2016 5:10 AM CDT Conventional Warfarin Anticoagulant Therapy: INR Reference Range: 2.0-3.0 Intensive Warfarin Anticoagulant Therapy: INR Reference Range: 2.5-3.5 Heparin Therapeutic Range for PTT: 47.7 - 68.6 seconds. Nando Ledesma MD LAB - COAGULATION OR DERABLES Performing Organization Address City/[facility] Co de Phone Number [facility] [address] [place], [place] [phone] * (ABNORMAL) HEPATIC FUNCTION PANEL (08/31/2016 3:53 AM CDT) Alkaline Phosphatase 54 38 - 126 U/L 08/31/2016 4:23 AM CDT [facility] ALT 14 13 - 61 U/L 08/31/2016 4:23 AM CDT [facility] AST 16 5 - 40 U/L 08/31/2016 4:23 AM T [facility] Protein Total 5.9(L) 6.4 - 8.2 gm/dL 08/31/2016 4:23 AM T [facility] Albumin 2.7(L) 3.4 - 5.0 gm/dL 08/31/2016 4:23 AM T [facility] Bilirubin Total 0.3 0.2 - 1.0 mg/dL 08/31/2016 4:23 AM CDT [facility] Bilirubin Direct <0.1 0 - 0.3 mg/dL 08/31/2016 4:23 AM T [facility] Blood BLOOD SPECIMEN / Unknown Venipuncture / Unknown 08/31/2016 3:53 AM CDT 08/31/2016 3:57 AM CDT Nando Ledesma MD LAB - CHEMISTRY ORDE RABLES Performing Organization Address City/[facility]/ZIP Co de Phone Number [facility] [address] [place] [phone] * CK BLOOD (08/31/2016 3:53 AM CDT) CK 50 35 - 232 U/L 08/31/2016 4:23 AM CDT [facility] Blood BLOOD SPECIMEN / Unknown Venipuncture / Unknown 08/31/2016 3:53 AM CDT 08/31/2016 3:57 AM CDT Nando Ledesma MD LAB - CHEMISTRY DANIEL MEJIAS [facility] [address] [place] [address] * (ABNORMAL) BLOOD GASES ART (08/31/2016 3:39 AM CDT) pH Arterial 7.51(H) 7.35 - 7.45 pH 08/31/2016 4:09 AM CDT [facility] RESP THERAP[facility] pCO2 Arterial 30(L) 35 - 45 mm hg 08/31/2016 4:09 AM CDT [facility]P [facility]ER[facility] pO2 Arterial 203(H) 80 - 100 mm hg 08/31/2016 4:09 AM CDT [facility]P [facility] HCO3 Arterial 23 22 - 26 mmol/L 08/31/2016 4:09 AM CDT [facility] RESP THERAP[facility] BE Arterial 0.7 -2.0 - 2.0 mmol/L 08/31/2016 4:09 AM CDT [facility]P [facility]ERAP[facility] O2 Saturation Arterial 100 90 - 100 % 08/31/2016 4:09 AM CDT [facility] Hemoglobin Arterial 11.3(L) 14.0 - 16.0 gm/dL 08/31/2016 4:09 AM CDT [facility] Carboxyhemoglobin Arterial 0.2 0.0 - 2.5 % 08/31/2016 4:09 AM CDT [facility] Methemoglobin Arterial 0.8 0.0 - 2.0 % 08/31/2016 4:09 AM CDT [facility] Oxyhemoglobin Arterial 98 % 08/31/2016 4:09 AM CDT [facility] Mode CMV 08/31/2016 4:09 AM CDT [facility] FI O2 40 % 08/31/2016 4:09 AM CDT [facility] PEEP (cmH2O) 5.0 08/31/2016 4:09 AM CDT [facility] Respiratory Rate 14.0 09/01/19 17 4:09 AM CDT [facility] Sample Site L Radial 08/31/2016 4:09 AM CDT [facility] Sample Type Arterial 08/31/2016 4:09 AM CDT [facility] Information Systems Security Specialist ID [id number] 08/31/2016 4:09 AM CDT [facility] Blood, arterial ARTERIAL BLOOD SPECIMEN / Unknown 08/31/2016 3:39 AM CDT 08/31/2016 3:39 AM CDT Nando Ledesma MD LAB - BLOOD GASES OR DERABLES Performing Organization Address City/State/[facility] Co de Phone Number [facility] RESP THERAPY [address] Care Teams Office Machine Inspector Relationship Specialty Start Date End Date Shilpa Perez PA-C [address] [place] [phone] PCP - General Physician [place] [employer] Gat[employer]r 10/01/20
--- OUTSIDE RECORDS SUMMARY | 2024-05-03 16:51 | XMS_ITS | Clinical Summary ---
Author Organization [facility] [employer] Address [address] [place] [address] Care Team Providers Care Business Technology Architect Name Role Phone Shilpa Perez PA-C Primary Care Provider + Source Comments [facility] [facility] [employer],non-owned Affiliates and Associated Physician Practices is amultiple site organization consisting of ambulatory clinics and hospital sitesin [place], [place], [place] and [place]. This disclosure is being madepursuant to the Care Everywhere program and may not contain all information available regarding this patient. Last updated 17.[facility] [facility] [employer] Allergies Active Allergy Reactions Criticality Noted Date Comments Codeine Nausea and/or Vomiting Low 09/01/2016 Hydroxyzine Hcl Other 06/29/2018 Medications * Be aware that medications may not be up to date on this document. Alwaysverify current medications with the patient. Medication Sig Dispensed Refills Start Date End Date Status ibuprofen (MOTRIN) 600 MG tablet Take 1 tablet by mouth every 6 hours as needed for Pain 50 tablet 12/31/2016 Active norethindrone-ethinyl estradiol (ORTHO-NOVUM , 28,) 1-35 MG-MCG tablet Take 1 tablet by mouth once daily Active buPROPion HCl ER, XL, 450 MGIndications:Major depressive disorder in full remission, unspecified whether recurrent (HCC) Take 1 (one) tablet by mouth every morning 30 tablet 1 09/09/2020 Active propranolol (INDERAL) 10 MG tabletIndications:Anx iety Take 1 (one) tablet by mouth as needed 30 tablet 1 09/09/2020 Active propranolol CR 24hr (INDERAL LA) 60 MG capsuleIndications:An xiety Take 1 (one) capsule by mouth once daily 30 capsule 1 09/09/2020 Active escitalopram (LEXAPRO) 10 MG tabletIndications:Manpreet or depressive disorder in full remission, unspecified whether recurrent (HCC) TAKE ONE-HALF TABLET BY MOUTH DAILY FOR 7 DAYS, THEN TAKE 1 TABLET BY MOUTH DAILY THEREAFTER. 30 tablet 1 12/30/2020 Active Active Problems Patient Care Coordination No te Formatting of this note migh t be different from the original. Rpt C/s 12/28 @ 1330 Problem Noted Date Diagnosed Date History of [...] pre gnancy of young multigravida 09/07/2016 08/02/2017 Overview (09/07/2016): PNL: O+ Ab: Neg GCT: HIV: GBS: Dating: H/H/Plt: 10.2/30.7/224 Hgb Elec: UDS: QS: CF: Pap: Gc/Chl: UCx: Neg Breast/Bottle: Family Planning: Suicide attempt 08/31/2016 01/11/2018 Acute respiratory failure 08/31/2016 22 weeks gestation of 08/31/2016 01/11/2018 Intentional poisoning by narcotic 08/31/2016 03/15/2018 Drug overdose, intentional 08/31/2016 0 03/15/2018 Cluster B personality disorder 08/31/2016 01/11/2018 Immunizations Name Administration Dates Next Due TDAP (7yrs+) 11/04/2016,02/22/2016 Family History Medical History Relation Name Comments Leukemia Maternal Grandmother Cancer - Breast Mother Cancer - Uterine Mother Leukemia Paternal Grandmother Relation Name Status Comments Maternal Grandmother Mother Paternal Grandmother Social History Tobacco Use Types Packs/Day Years [...] CDT Respiratory Rate 18 02/09/2017 12:50 PM POLISHER APPRENTICE Oxygen Saturation 100% 10/25/2018 2:34 PM CDT Inhaled Oxygen Concentration - - Weight 47.6 kg (105 lb) 08/23/2019 11:29 AM CDT Height 162.6 cm (5' 4 ) 04/20/2019 3:10 PM POLISHER APPRENTICE Body Mass Index 18.02 04/20/2019 3:10 PM POLISHER APPRENTICE Plan of Treatment Health Maintenance Due Date Last Done Comments PAP SMEAR 1992 HEPATITIS C SCREENING 07/25/2010 HEPATITIS B VACCINE (1 of 3 - 19+ 3-dose series) 07/30/2011 COVID-19 VACCINE (2023-2 5 season) 2023 INFLUENZA VACCINE (#1) 2023 DEPRESSION SCREENING 02/22/2024 DTAP/TDAP/TD VACCINES (3 - T d or Tdap) 11/04/2026 11/04/2016, 02/22/2016 ZOSTER VACCINE (1 of 2) 2042 HIV SCREENING Completed 09/30/2016 HIB VACCINE Aged Out No longer eligi ble based on patient's age to complete this topic HPV VACCINE Aged Out No longer eligi ble based on patient's age to complete this topic MENINGOCOCCAL (Group B) VACCINE SHARED DECISION-MAKING Aged Out No longer eligible based on patient's age to complete this topic MENINGOCOCCAL GROUPS A/C/Y/W VACCINE Aged Out No longer eligible b ased on patient's age to complete this topic PNEUMOCOCCAL VACCINE Aged Out No long er eligible based on patient's age to complete this topic Procedures Procedure Name Priority Date/Time Associated Diagnosis Comments CULTURE STREP B Routine 12/16/2016 12:49 PM CDT Supervision of high-risk of young multigravida (HCC) GLUCOSE CHALLENGE Routine 09/30/2016 8:5 3 AM CDT Supervision of high-risk of young multigravida (HCC) HIV-1 HIV-2 ANTIBODY + HIV P24 AG PANEL Routine 09/30/2016 8:53 AM CDT Supervision of high-risk of young multigravida (HCC) from Last 3 Months or Most Recently Relevant to Health Maintenance Results * CULTURE STREP B (12/16/2016 12:49 PM CDT) Culture Strep B Negative for beta-hemolytic Streptococcus Group B SAMANTHA 12/19/2016 9:48 AM CDT [facility] MICROBIOLOGY Microbiology MISCELLANEOUS SAMPLES / Unknown Collection / Unknown 12/16/2016 12:49 PM CDT 12/16/2016 12:57 PM CDT Aixa Shaikh APRN-GROCERY BAGGER LAB - MICROBI OLOGY ORDERABLES [facility] MICROBIOLOGY [address] [phone] * HIV-1 HIV-2 ANTIBODY + HIV P24 AG PANEL (09/30/2016 8:53 AM CDT) HIV1/2 Ab + P24 Ag Non Reactive Non Reactive 09/30/2016 5:26 PM CDT [facility] Blood BLOOD SPECIMEN / Unknown Venipuncture / Unknown 09/30/2016 8:53 AM CDT 09/30/2016 9:42 AM CDT Narrative [facility] - 09/30/2016 5:26 PM CDT No Laboratory evidence of HIV infection. Monique Merino MD LAB - CHEMISTRY DANIEL MEJIAS [facility] [place] [address] * GLUCOSE CHALLENGE (09/30/2016 8:53 AM CDT) [facility] Signature Glucose Challenge 94 64 - 140 mg/dL 09/30/2016 10:11 AM CDT [facility] Glucose Challenge Time 09/30/2016 10:11 AM CDT [facility] Blood BLOOD SPECIMEN / Unknown Venipuncture / Unknown 09/30/2016 8:53 AM CDT 09/30/2016 9:42 AM CDT Monique Merino MD LAB - CHEMISTRY DANIEL MEJIAS [facility] [address] [place], [place] [id number] from Last 3 Months or Most Recently Relevant to Health Maintenance Advance Directives * Full Code (Latest Code Status on File) Date Activated Date Inactivated Comments 12/28/2016 12:20 PM 12/31/2016 2:03 PM * Full Code Date Activated Date Inactivated Comments 08/31/2016 4:43 AM 09/01/2016 3:59 PM Care Teams Business Technology Architect Relationship Specialty Start Date End Date Shilpa Perez PA-C [address] [place] [address] [phone] PCP - General Physician Sports Marketing Coordinator 10/01/20
--- OUTSIDE RECORDS SUMMARY | 2024-05-03 16:51 | XMS_ITS | Referral Summary ---
Author Organization [facility] Address [address] [place] [address] Care Team Providers Care Automatic Equipment Technician Name Role Phone Shilpa Perez PA-C Primary Care Provider + Source Comments [facility],non-owned Affiliates and Associated Physician Practices is amultiple site organization consisting of ambulatory clinics and hospital sitesin [place], [place], [place] and [place]. This disclosure is being madepursuant to the Care Everywhere program and may not contain all information available regarding this patient. 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 No 12/28/2016 Is person blind or have serious difficulty seein g? No 12/28/2016 Does person have serious dif ficulty walking/climbing stairs? No 12/28/2016 Does person have difficulty dressing/bathing? No 12/28/2016 Does person have difficulty doing errands alone? No 12/28/2016 Cognitive Status Response Date of Assessm ent Does person have difficulty concentrating/remembering/making decisions? No 12/28/2016 Plan of Treatment Not on file Procedures Procedure Name Priority Date/Time Associated Diagnosis [...] Group B SAMANTHA 12/19/2016 9:48 AM CDT [facility] MICROBIOLOGY Microbiology MISCELLANEOUS SAMPLES / Unknown Collection / Unknown 12/16/2016 12:49 PM CDT 12/16/2016 12:57 PM CDT Aixa Shaikh ARCH SUPPORT TECHNICIAN-WEIGHT LOSS PHYSICIAN LAB - MICROBI OLOGY ORDERABLES [facility] MICROBIOLOGY [address] [place], [place] [address] [phone] * HIV-1 HIV-2 ANTIBODY + HIV P24 AG PANEL (09/30/2016 8:53 AM CDT) Pathologist [facility] HIV1/2 Ab + P24 Ag Non Reactive Non Reactive 09/30/2016 5:26 PM CDT [facility] Blood BLOOD SPECIMEN / Unknown Venipuncture / Unknown 09/30/2016 8:53 AM CDT 09/30/2016 9:42 AM CDT Narrative [facility] - 09/30/2016 5:26 PM CDT No Laboratory evidence of HIV infection. Monique Merino MD LAB - CHEMISTRY DANIEL MEJIAS Performing Organization Address City/[facility]/ZIP Co de Phone Number [facility] [address] [place] [address] * GLUCOSE CHALLENGE (09/30/2016 8:53 AM CDT) Pathologist [facility] Glucose Challenge 94 64 - 140 mg/dL 09/30/2016 10:11 AM CDT [facility] Glucose Challenge Time 09/30/2016 10:11 AM CDT [facility] Blood BLOOD SPECIMEN / Unknown Venipuncture / Unknown 09/30/2016 8:53 AM CDT 09/30/2016 9:42 AM CDT Monique Merino MD LAB - CHEMISTRY DANIEL MEJIAS [facility] [address] [place] [address] from Last 3 Months or Most Recently Relevant to Health Maintenance Advance Directives * Full Code (Latest Code Status on File) Date Activated Date Inactivated Comments 12/28/2016 12:20 PM 12/31/2016 2:03 PM * Full Code Date Activated Date Inactivated Comments 08/31/2016 4:43 AM 09/01/2016 3:59 PM Care Teams Automatic Equipment Technician Relationship Specialty Start Date End Date Shilpa Perez PA-C [address] [place] [phone] PCP - General Physician Hog Sticker 10/01/20
[2024-05-03 17:05] LABS: Creatinine Urine 63.4 mg/dL; Total Protein Urine Random 20 mg/dL; Ur Ttl Prot Creatinine Ratio 0.32 mg/mg (0-0.20)
== END 2024-05-03 16:40 | disposition home or self-care (01) ==
LOC: ANHOBOP 15:03 → ANHOBPP 15:05
PROVIDERS: Obstetrics & Gynecology; Visit Provider Obstetrics & Gynecology
DX: O13.9 Gestational [pregnancy-induced] hypertension without significant proteinuria, unspecified trimester (principal); Z3A.00 Weeks of gestation of pregnancy not specified
CPT/HCPCS: 36415; 59025; 80053; 81001; 82542; 82570; 84156; 84550; 85025; 99199

== ENCOUNTER 2024-05-23 19:20 | Outpatient (CLI) | payer OTHER, SELFPAY ==
[2024-05-23] VITALS (10 sets, daily range): BP systolic 119–126; BP diastolic 64–111; PULSE 98–103; O2SAT 96–98
--- OUTSIDE RECORDS SUMMARY | 2024-05-23 19:26 | XMS_ITS | Data Portability ---
Author Organization [employer] , [facility] Address [address] [place] [address] Assessment No assessment recorded. Plan of Treatment Reminders Order Date Submit Date Provider Last Modified By Organization Details Last Modified Time Details Appointments None recorded. Lab bacterial vaginosis + vaginitis panel, vaginal 2021 [facility], [address] [place] [address], [address], 2 16:56:09 streptococ cus group B, culture, unspecifie d specimen 2021 022 [facility], [address], [place], [address], 2 09:57:00 RPR (rapid plasma reagin), serum 2021 022 kmcalister 3 [employer], [address], [place], [address], 2 10:43:52 glucose tolerance test, gestationa l, 1-hour 2021 022 [facility], [address], [address], [place], [address], 3 05:01:10 CBC w/ auto diff 2021 [facility], [address], [address], [place], [address], 3 05:01:11 obstetric screen + HIV, serum or blood 2021 [email or web address] [facility], [address] [place], [address], 09:52:47 Referral None recorded. Procedures None recorded. Surgeries None recorded. Imaging None recorded. Medication Orders Diflucan 150 mg tablet 2021 [email or web address] [id number], [address], [place], [id number], 14:33:50 Zoloft 100 mg tablet 2021 PASCUAL [id number], [address], [place], [id number], 03:37:29 Patient TargetsNo targets recorded. Patient Instructions Encounter Date Encounter Id Patient Instructions Last Modified By Organization Details Last Modified Time 08/21/2021 [id number] learning about screening for gestational diabetes [email or web address] Not available 10/26/2021 21:38:09 10/09/2021 [id number] edinburgh depression scale* [email or web address] Not available 10/19/2021 12:55:20 10/30/2021 [id number] edinburgh depression scale* Not available 11/16/2021 17:13:05 Reason for Referral None Reported. Results Created Date Observation Date Name Description Value Unit Range Abnormal Flag Note LastModifiedBy Organization Detail LastModifiedTime 08/22/1908/25/2021 OBSTE TRIC PANEL W/FOU RTH GENER ATION HIV white blood cell count 12.2 thous and/u L 3.8-10 .8 high Not Available [facility] [address], [place], [address], 08/25/2021 15:06:10 08/22/19 22 08/25/2021 OBSTE TRIC PANEL W/FOU RTH GENER ATION HIV red blood cell count 3.51 joe on/uL 3.80-5 .10 low Not Available [facility] [address] [place], [address], 08/25/2021 15:06:10 08/22/19 22 08/25/2021 OBSTE TRIC PANEL W/FOU RTH GENER ATION HIV hemoglobin 10.3 g/dL 11.7-1 5.5 low Not Available [facility] [address], [address], 08/25/2021 15:06:10 08/22/19 22 08/25/2021 OBSTE TRIC PANEL W/FOU RTH GENER ATION HIV hematocrit 31.5 % 35.0-4 5.0 low Not Available [facility] [address], [address], 08/25/2021 15:06:10 08/22/19 22 08/25/2021 OBSTE TRIC PANEL W/FOU RTH GENER ATION HIV MCV 89.7 fL 80.0-1 00.0 normal Not Available [facility] [address], [address], 08/25/2021 15:06:10 08/22/19 22 08/25/2021 OBSTE TRIC PANEL W/FOU RTH GENER ATION HIV MCH 29.3 pg 27.0-3 3.0 normal Not Available [facility] [address], [address], 08/25/2021 15:06:10 08/22/19 22 08/25/2021 OBSTE TRIC PANEL W/FOU RTH GENER ATION HIV MCHC 32.7 g/dL 32.0-3 6.0 normal Not Available [facility] [address], [address], 08/25/2021 15:06:10 08/22/19 22 08/25/2021 OBSTE TRIC PANEL W/FOU RTH GENER ATION HIV RDW 11.8 % 11.0-1 5.0 normal Not Available [address], [address], 08/25/2021 15:06:10 08/22/19 22 08/25/2021 OBSTE TRIC PANEL W/FOU RTH GENER ATION HIV platelet count 231 thous and/u L 140-40 0 normal Not Available [address], [address], 08/25/2021 15:06:10 08/22/19 22 08/25/2021 OBSTE TRIC PANEL W/FOU RTH GENER ATION HIV MPV 9.0 fL 7.5-12 .5 normal Not Available [address], [address], 08/25/2021 15:06:10 08/22/19 22 08/25/2021 OBSTE TRIC PANEL W/FOU RTH GENER ATION HIV absolute neutrophils 9443 cells /uL 1500-7 800 high Not Available [address], [address], 08/25/2021 15:06:10 08/22/19 22 08/25/2021 OBSTE TRIC PANEL W/FOU RTH GENER ATION HIV absolute lymphocytes 1854 cells /uL 850-39 00 normal Not Available [address], [address], 08/25/2021 15:06:10 08/22/19 22 08/25/2021 OBSTE TRIC PANEL W/FOU RTH GENER ATION HIV absolute monocytes 695 cells /uL 200-95 0 normal Not Available [address], [address], 08/25/2021 15:06:10 08/22/19 22 08/25/2021 OBSTE TRIC PANEL W/FOU RTH GENER ATION HIV absolute eosinophils 159 cells /uL 15-500 normal Not Available [facility] [address], [place], [address], 08/25/2021 15:06:10 08/22/19 22 08/25/2021 OBSTE TRIC PANEL W/FOU RTH GENER ATION HIV absolute basophils 49 cells /uL 0-200 normal Not Available [facility] [address] [address] [place], [address], 08/25/2021 15:06:10 08/22/19 22 08/25/2021 OBSTE TRIC PANEL W/FOU RTH GENER ATION HIV neutrophils 77.4 % normal Not Available [facility] [address] [address] [place], [address], 08/25/2021 15:06:10 08/22/19 22 08/25/2021 OBSTE TRIC PANEL W/FOU RTH GENER ATION HIV lymphocytes 15.2 % normal Not Available [facility] [address] [address] [place], [address], 08/25/2021 15:06:10 08/22/19 22 08/25/2021 OBSTE TRIC PANEL W/FOU RTH GENER ATION HIV monocytes 5.7 % normal Not Available [facility] [address] [address] [place], [address], 08/25/2021 15:06:10 08/22/19 22 08/25/2021 OBSTE TRIC PANEL W/FOU RTH GENER ATION HIV eosinophils 1.3 % normal Not Available [facility] [address] [address] [place], [address], 08/25/2021 15:06:10 08/22/19 22 08/25/2021 OBSTE TRIC PANEL W/FOU RTH GENER ATION HIV basophils 0.4 % normal Not Available [facility] [address] [address] [place], [address], 08/25/2021 15:06:10 08/22/19 22 08/25/2021 OBSTE TRIC [...] alloi mmuni zed pregn tracy. Not Available [address] [address] [place], [address], 08/25/2021 15:06:10 08/22/19 22 08/25/2021 OBSTE TRIC PANEL W/FOU RTH GENER ATION HIV ABO group O Not Available [address] [address] [place], [address], 08/25/2021 15:06:10 08/22/19 22 08/25/2021 OBSTE TRIC PANEL W/FOU RTH GENER ATION HIV Rh type RH(D) POSITI VE For addit ional infor ulises kathleen e refer to http: //[email or web address] loving.[email or web address] stDia gnost ics.c om/fa q/FAQ 111 (This link is being provi ded for infor aliya cyr/ peg barnes purpo ses only. ) Not Available [address] [address] [place], [address], 08/25/2021 15:06:10 08/22/19 22 08/25/2021 OBSTE TRIC PANEL W/FOU RTH GENER ATION HIV RPR (DX) w/refl titer and confirmatory testing NON-RE ACTIVE non-re active normal Not Available [facility] [address] [address] [place], [address], 08/25/2021 15:06:10 08/22/19 22 08/25/2021 OBSTE TRIC PANEL W/FOU RTH GENER ATION HIV hepatitis B surface antigen NON-RE ACTIVE non-re active normal Not Available [facility] [address] [address] [place], [address], 08/25/2021 15:06:10 08/22/19 22 08/25/2021 OBSTE TRIC [...] with rubel la virus . Not Available [employer] [address], [place], [address], 08/25/2021 15:06:10 08/22/19 22 08/25/2021 OBSTE TRIC [...] less than 2 years old. Not Available [facility] [address] [address] [place], [address], 08/25/2021 15:06:10 08/22/19 22 08/25/2021 GLUCO SE, GESTA JEFF L SCREE N (50G) -135 CUTOF F glucose, gestational screen (50g)-135 cutoff 74 mg/dL <135 normal Not Available [facility] [address], [place], [address], 08/25/2021 15:06:11 10/10/19 22 10/12/2021 STREP TOCOC CUS, GROUP B CULTU RE streptococcu s, group B culture SEE NOTE STREP TOCOC CUS, GROUP B CULTU RE Micro Numbe r: [id number] Test Statu s: Final Speci men Sourc e: Vagin al/an orect al Speci men Quali ty: Adequ ate Resul t: No group B Strep tococ cus isola yamil Note per CDC guide lines optim al recov jer is achie grecia by swabb ing both the lower vagin a and rectu m (thro ugh the anal sphin cter) . Not Available [facility] [address] [address] [address] , [place], [address], 10/12/2021 09:57:00 10/10/19 22 10/12/2021 VAGIN ITIS PANEL bacterial vaginosis BV neg negati ve normal Not Available [address], [address], 10/12/2021 16:56:09 10/10/19 22 10/12/2021 VAGIN ITIS PANEL brent species C. spp neg negati ve normal Not Available [address], [address], 10/12/2021 16:56:09 10/10/19 22 10/12/2021 VAGIN ITIS PANEL brent glabrata C. gla neg negati ve normal Not Available [address], [place], [address], 10/12/2021 16:56:09 10/10/19 22 10/12/2021 VAGIN ITIS PANEL trichomonas vaginalis CV/TV TRICH neg negati ve normal Not Available [facility] [address] [place], [address], 10/12/2021 16:56:09 10/14/19 22 10/13/2021 CBC WITH DIFF WBC 12.1 x10'3 /uL 4.5-11 .0 high Not Available [facility] (Lab) [place], [address], 10/13/2021 20:26:01 10/14/19 22 10/13/2021 CBC WITH DIFF RBC 3.54 x10'6 /uL 4.20-5 .40 low Not Available [facility] (Lab) [address] [facility], [place], [address], 10/13/2021 20:26:01 10/14/19 22 10/13/2021 CBC WITH DIFF hemoglobin 10.4 g/dL 12.0-1 6.0 low Not Available [facility] (Lab) [address] [facility], [place], [address], 10/13/2021 20:26:01 10/14/19 22 10/13/2021 CBC WITH DIFF hematocrit 32.0 % 38.0-4 8.0 low Not Available [facility] (Lab) [place], [address], 10/13/2021 20:26:01 10/14/19 22 10/13/2021 CBC WITH DIFF MCV 90.4 fL 81.0-9 9.0 Not Available [facility] (Lab) [place], [address], 10/13/2021 20:26:01 10/14/19 22 10/13/2021 CBC WITH DIFF MCH 29.4 pg 27.0-3 1.0 Not Available [facility] (Lab) [address] [facility], [place], [address], 10/13/2021 20:26:01 10/14/19 22 10/13/2021 CBC WITH DIFF MCHC 32.5 g/dL 32.0-3 6.0 Not Available [facility] (Lab) [address] [facility], [place], [address], 10/13/2021 20:26:01 10/14/19 22 10/13/2021 CBC WITH DIFF RDW 13.5 % 11.5-1 4.5 Not Available [facility] (Lab) [address] [facility], [place], [address], 10/13/2021 20:26:01 10/14/19 22 10/13/2021 CBC WITH DIFF platelet count 241 x10'3 /uL 130-40 0 Not Available [facility] (Lab) [address] [facility], [place], [address], 10/13/2021 20:26:01 10/14/19 22 10/13/2021 CBC WITH DIFF MPV 9.2 fL 9.3-12 .2 low Not Available [facility] (Lab) [address] [facility], [place], [address], 10/13/2021 20:26:01 10/14/19 22 10/13/2021 CBC WITH DIFF diff type AUTOMA YAMIL DIFFER ENTIAL Not Available [facility] (Lab) [address] [facility], [place], [address], 10/13/2021 20:26:01 10/14/19 22 10/13/2021 CBC WITH DIFF neutrophils 68.4 % Not Available [facility] (Lab) [address], [place], [address], 10/13/2021 20:26:01 10/14/19 22 10/13/2021 CBC WITH DIFF lymphocytes 19.4 % Not Available [facility] (Lab) [address], [place], [address], 10/13/2021 20:26:01 10/14/19 22 10/13/2021 CBC WITH DIFF monocytes 7.6 % Not Available [facility] (Lab) [address], [place], [address], 10/13/2021 20:26:01 10/14/19 22 10/13/2021 CBC WITH DIFF eosinophils 1.7 % Not Available [facility] (Lab) [address], [place], [address], 10/13/2021 20:26:01 10/14/19 22 10/13/2021 CBC WITH DIFF basophils 0.5 % Not Available [facility] (Lab) [address], [place], [address], 10/13/2021 20:26:01 10/14/19 22 10/13/2021 CBC WITH DIFF immature granulocytes 2.4 % Not Available [facility] (Lab) [address], [place], [address], 10/13/2021 20:26:01 10/14/19 22 10/13/2021 CBC WITH DIFF abs. neutrophils 8.26 x10'3 /uL 1.80-7 .70 high Not Available [facility] (Lab) [address], [place], [address], 10/13/2021 20:26:01 10/14/19 22 10/13/2021 CBC WITH DIFF abs. lymphocytes 2.34 x10'3 /uL 1.00-4 .80 Not Available [facility] (Lab) [place], [address], 10/13/2021 20:26:01 10/14/19 22 10/13/2021 CBC WITH DIFF abs. monocytes 0.92 x10'3 /uL 0.24-0 .86 high Not Available [facility] (Lab) [place], [address], 10/13/2021 20:26:01 10/14/19 22 10/13/2021 CBC WITH DIFF abs. eosinophils 0.21 x10'3 /uL 0.04-0 .36 Not Available [facility] (Lab) [address], [place], [address], 10/13/2021 20:26:01 10/14/19 22 10/13/2021 CBC WITH DIFF abs. basophils 0.06 x10'3 /uL 0.01-0 .08 Not Available [facility] (Lab) [place], [address], 10/13/2021 20:26:01 10/14/19 22 10/13/2021 CBC WITH DIFF abs. immature grans 0.29 x10'3 /uL 0.00-0 .49 Not Available [facility] (Lab) [place], [address], 10/13/2021 20:26:01 10/14/19 22 10/13/2021 COMPR EHENS CANDIDO METAB OLIC PANEL glucose 70 mg/dL 70-99 Not Available [facility] (Lab) [address] [facility], [place], [address], 10/13/2021 20:46:57 10/14/19 22 10/13/2021 COMPR EHENS CANDIDO METAB OLIC PANEL BUN 7 mg/dL 7-18 Not Available [facility] (Lab) [place], [address], 10/13/2021 20:46:57 10/14/19 22 10/13/2021 COMPR EHENS CANDIDO METAB OLIC PANEL creatinine 0.43 mg/dL 0.55-1 .02 low Not Available [facility] (Lab) [place], [address], 10/13/2021 20:46:57 10/14/19 22 10/13/2021 COMPR EHENS CANDIDO METAB OLIC PANEL sodium 136 mmol/ L 136-14 5 Not Available [facility] (Lab) [address] [facility], [place], [address], 10/13/2021 20:46:57 10/14/19 22 10/13/2021 COMPR EHENS CANDIDO METAB OLIC PANEL potassium 3.8 mmol/ L 3.5-5. 1 Not Available [facility] (Lab) [place], [address], 10/13/2021 20:46:57 10/14/19 22 10/13/2021 COMPR EHENS CANDIDO METAB OLIC PANEL chloride 105 mmol/ L 100-10 8 Not Available [facility] (Lab) [place], [address], 10/13/2021 20:46:57 10/14/19 22 10/13/2021 COMPR EHENS CANDIDO METAB OLIC PANEL total CO2 24.7 mmol/ L 21-32 Not Available [facility] (Lab) [address] [facility], [place], [address], 10/13/2021 20:46:57 10/14/19 22 10/13/2021 COMPR EHENS CANDIDO METAB OLIC PANEL calcium 10.0 mg/dL 8.5-10 .1 Not Available [facility] (Lab) [address] [facility], [place], [address], 10/13/2021 20:46:57 10/14/19 22 10/13/2021 COMPR EHENS CANDIDO METAB OLIC PANEL total bilirubin 0.3 mg/dL 0.2-1. 2 THIS ASSAY IS NOT RECOM AMEENA D FOR PATIE NTS UNDER GOING TREAT MENT WITH ELTRO MBOPA G DUE TO THE POTEN TIAL FOR FALSE LY ELEVA YAMIL RESUL TS. Not Available [facility] (Lab) [address], [place], [address], 10/13/2021 20:46:57 10/14/19 22 10/13/2021 COMPR EHENS CANDIDO METAB OLIC PANEL total protein 6.8 g/dL 6.4-8. 2 Not Available [facility] (Lab) [address] [facility], [place], [address], 10/13/2021 20:46:57 10/14/19 22 10/13/2021 COMPR EHENS CANDIDO METAB OLIC PANEL albumin 2.9 g/dL 3.4-5. 0 low Not Available [facility] (Lab) [address] [facility], [place], [address], 10/13/2021 20:46:57 10/14/19 22 10/13/2021 COMPR EHENS CANDIDO METAB OLIC PANEL AST 22 U/L 15-37 Not Available [facility] (Lab) [address] [facility], [place], [address], 10/13/2021 20:46:57 10/14/19 22 10/13/2021 COMPR EHENS CANDIDO METAB OLIC PANEL ALT 22 U/L 14-55 Not Available [facility] (Lab) [place], [address], 10/13/2021 20:46:57 10/14/19 22 10/13/2021 COMPR EHENS CANDIDO METAB OLIC PANEL alk phosphatase 158 U/L 50-136 high Not Available [facility] (Lab) [place], [address], 10/13/2021 20:46:57 10/14/19 22 10/13/2021 COMPR EHENS CANDIDO METAB OLIC PANEL anion gap 6.3 mmol/ L 5-15 Not Available [facility] (Lab) [place], [address], 10/13/2021 20:46:57 10/14/19 22 10/13/2021 COMPR EHENS CANDIDO METAB OLIC PANEL BUN creatinine ratio 16.4 6-26 Not Available [facility] (Lab) [place], [address], 10/13/2021 20:46:57 10/14/19 22 10/13/2021 COMPR EHENS CANDIDO METAB OLIC PANEL A:g ratio 0.7 ratio 1.0-2. 0 low Not Available [facility] (Lab) [place], [address], 10/13/2021 20:46:57 10/14/19 22 10/13/2021 COMPR EHENS [...] latin g drug doses . Not Available [facility] (Lab) [address], [place], [address], 10/13/2021 20:46:57 10/14/1910/13/2021 URIC ACID uric acid 3.5 mg/dL 2.6-6. 0 Not Available [facility] (Lab) [place], [address], 10/13/2021 20:47:00 10/14/1910/13/2021 TYPE AND SCREE N ABO/Rh(D) O POSITI VE Not Available [facility] (Lab) [address] [facility], [place], [address], 10/13/2021 21:28:35 10/14/19 22 10/13/2021 TYPE AND SCREE N antibody screen NEGATI VE Not Available [facility] (Lab) [address], [place], [address], 10/13/2021 21:28:35 10/14/19 22 10/13/2021 TYPE AND SCREE N xm expiration 2021,2 359 Not Available [facility] (Lab) [place], [address], 10/13/2021 21:28:35 10/14/19 22 10/13/2021 UA REFLE X TO CULTU RE specimen type URINE CLEAN CATCH Not Available [facility] (Lab) [place], [address], 10/13/2021 21:38:54 10/14/19 22 10/13/2021 UA REFLE X TO CULTU RE color COLORL ESS Not Available [facility] (Lab) [place], [address], 10/13/2021 21:38:54 10/14/19 22 10/13/2021 UA REFLE X TO CULTU RE clarity CLEAR Not Available [facility] (Lab) [place], [address], 10/13/2021 21:38:54 10/14/19 22 10/13/2021 UA REFLE X TO CULTU RE specific gravity 1.006 1.001- 1.030 Not Available [facility] (Lab) [place], [address], 10/13/2021 21:38:54 10/14/19 22 10/13/2021 UA REFLE X TO CULTU RE pH, urine 6.5 5.0-9. 0 Not Available [facility] (Lab) [place], [address], 10/13/2021 21:38:54 10/14/19 22 10/13/2021 UA REFLE X TO CULTU RE leukocytes NEGATI VE neg Not Available [facility] (Lab) [place], [address], 10/13/2021 21:38:54 10/14/19 22 10/13/2021 UA REFLE X TO CULTU RE nitrite NEGATI VE neg Not Available [facility] (Lab) [place], [address], 10/13/2021 21:38:54 10/14/19 22 10/13/2021 UA REFLE X TO CULTU RE protein NEGATI VE mg/dL <30 Not Available [facility] (Lab) [place], [address], 10/13/2021 21:38:54 10/14/19 22 10/13/2021 UA REFLE X TO CULTU RE glucose NORMAL mg/dL norm Not Available [facility] (Lab) [place], [address], 10/13/2021 21:38:54 10/14/19 22 10/13/2021 UA REFLE X TO CULTU RE ketone NEGATI VE mg/dL neg Not Available [facility] (Lab) [place], [address], 10/13/2021 21:38:54 10/14/19 22 10/13/2021 UA REFLE X TO CULTU RE urobilinogen NORMAL mg/dL norm Not Available [facility] (Lab) [place], [address], 10/13/2021 21:38:54 10/14/19 22 10/13/2021 UA REFLE X TO CULTU RE bilirubin NEGATI VE mg/dL neg Not Available [facility] (Lab) [place], [address], 10/13/2021 21:38:54 10/14/19 22 10/13/2021 UA REFLE X TO CULTU RE blood NEGATI VE neg Not Available [facility] (Lab) [place], [address], 10/13/2021 21:38:54 10/14/19 22 10/13/2021 UA REFLE X TO CULTU RE culture indicated CULTUR E IS NOT INDICA YAMIL Not Available [facility] (Lab) [address] [facility], [place], [address], 10/13/2021 21:38:54 10/14/19 22 10/13/2021 UA REFLE X TO CULTU RE mucous RARE /lpf Not Available [facility] (Lab) [address] [facility], [place], [address], 10/13/2021 21:38:54 10/14/19 22 10/13/2021 UA REFLE X TO CULTU RE WBC 1 /hpf <6 Not Available [facility] (Lab) [address] [facility], [place], [address], 10/13/2021 21:38:54 10/14/19 22 10/13/2021 UA REFLE X TO CULTU RE RBC 1 /hpf <6 Not Available [facility] (Lab) [address] [facility], [place], [address], 10/13/2021 21:38:54 10/14/19 22 10/13/2021 UA REFLE X TO CULTU RE squamous epithelial RARE /hpf Not Available [facility] (Lab) [address] [facility], [place], [address], 10/13/2021 21:38:54 10/14/19 22 10/13/2021 DRUGS OF ABUSE PANEL , URINE amphetamines , urine NEGATI VE neg Not Available [facility] (Lab) [place], [address], 10/13/2021 21:44:54 10/14/19 22 10/13/2021 DRUGS OF ABUSE PANEL , URINE barbituates, urine NEGATI VE neg Not Available [facility] (Lab) [place], [address], 10/13/2021 21:44:54 10/14/19 22 10/13/2021 DRUGS OF ABUSE PANEL , URINE benzodiazapi luis, urine NEGATI VE neg Not Available [facility] (Lab) [place], [address], 10/13/2021 21:44:54 10/14/19 22 10/13/2021 DRUGS OF ABUSE PANEL , URINE cannabinoids /THC, urine NEGATI VE neg Not Available [facility] (Lab) [place], [address], 10/13/2021 21:44:54 10/14/19 22 10/13/2021 DRUGS OF ABUSE PANEL , URINE cocaine, urine NEGATI VE neg Not Available [facility] (Lab) [place], [address], 10/13/2021 21:44:54 10/14/19 22 10/13/2021 DRUGS OF ABUSE PANEL , URINE methadone, urine NEGATI VE neg Not Available [facility] (Lab) [address] [facility], [place], [address], 10/13/2021 21:44:54 10/14/19 22 10/13/2021 DRUGS OF ABUSE PANEL , URINE opiates, urine NEGATI VE neg Not Available [facility] (Lab) [place], [address], 10/13/2021 21:44:54 10/14/19 22 10/13/2021 DRUGS OF [...] 300 MG/ML PCP- 25 NG/ML Not Available [facility] (Lab) [place], [address], 10/13/2021 21:44:54 10/14/19 22 10/13/2021 DRUGS OF ABUSE PANEL , URINE creatinine, urine <13.0 mg/dL 28-217 low Not Available [facility] (Lab) [place], [address], 10/13/2021 21:44:54 10/17/19 22 10/16/2021 UA REFLE X TO CULTU RE specimen type URINE CLEAN CATCH Not Available [facility] (Lab) [place], [address], 10/17/2021 00:12:06 10/17/19 22 10/16/2021 UA REFLE X TO CULTU RE color COLORL ESS Not Available [facility] (Lab) [place], [address], 10/17/2021 00:12:06 10/17/19 22 10/16/2021 UA REFLE X TO CULTU RE clarity CLEAR Not Available [facility] (Lab) [place], [address], 10/17/2021 00:12:06 10/17/19 22 10/16/2021 UA REFLE X TO CULTU RE specific gravity 1.007 1.001- 1.030 Not Available [facility] (Lab) [place], [address], 10/17/2021 00:12:06 10/17/19 22 10/16/2021 UA REFLE X TO CULTU RE pH, urine 6.5 5.0-9. 0 Not Available [facility] (Lab) [place], [address], 10/17/2021 00:12:06 10/17/19 22 10/16/2021 UA REFLE X TO CULTU RE leukocytes NEGATI VE neg Not Available [facility] (Lab) [place], [address], 10/17/2021 00:12:06 10/17/19 22 10/16/2021 UA REFLE X TO CULTU RE nitrite NEGATI VE neg Not Available [facility] (Lab) [place], [address], 10/17/2021 00:12:06 10/17/19 22 10/16/2021 UA REFLE X TO CULTU RE protein NEGATI VE mg/dL <30 Not Available [facility] (Lab) [place], [address], 10/17/2021 00:12:06 10/17/19 22 10/16/2021 UA REFLE X TO CULTU RE glucose NORMAL mg/dL norm Not Available [facility] (Lab) [place], [address], 10/17/2021 00:12:06 10/17/19 22 10/16/2021 UA REFLE X TO CULTU RE ketone NEGATI VE mg/dL neg Not Available [facility] (Lab) [address] [facility], [place], [address], 10/17/2021 00:12:06 10/17/19 22 10/16/2021 UA REFLE X TO CULTU RE urobilinogen NORMAL mg/dL norm Not Available [facility] (Lab) [address] [facility], [place], [address], 10/17/2021 00:12:06 10/17/19 22 10/16/2021 UA REFLE X TO CULTU RE bilirubin NEGATI VE mg/dL neg Not Available [facility] (Lab) [address] [facility], [place], [address], 10/17/2021 00:12:06 10/17/19 22 10/16/2021 UA REFLE X TO CULTU RE blood NEGATI VE neg Not Available [facility] (Lab) [address] [facility], [place], [address], 10/17/2021 00:12:06 10/17/19 22 10/16/2021 UA REFLE X TO CULTU RE culture indicated CULTUR E IS NOT INDICA YAMIL Not Available [facility] (Lab) [place], [address], 10/17/2021 00:12:06 10/17/19 22 10/16/2021 UA REFLE X TO CULTU RE WBC <1 /hpf <6 Not Available [facility] (Lab) [place], [address], 10/17/2021 00:12:06 10/17/19 22 10/16/2021 UA REFLE X TO CULTU RE RBC 2 /hpf <6 Not Available [facility] (Lab) [address] [facility], [place], [address], 10/17/2021 00:12:06 10/17/19 22 10/16/2021 UA REFLE X TO CULTU RE squamous epithelial RARE /hpf Not Available [facility] (Lab) [place], [address], 10/17/2021 00:12:06 10/17/19 22 10/16/2021 DRUGS OF ABUSE PANEL , URINE amphetamines , urine NEGATI VE neg Not Available [facility] (Lab) [place], [address], 10/17/2021 00:24:41 10/17/19 22 10/16/2021 DRUGS OF ABUSE PANEL , URINE barbituates, urine NEGATI VE neg Not Available [facility] (Lab) [address], [place], [address], 10/17/2021 00:24:41 10/17/19 22 10/16/2021 DRUGS OF ABUSE PANEL , URINE benzodiazapi luis, urine NEGATI VE neg Not Available [facility] (Lab) [place], [address], 10/17/2021 00:24:41 10/17/19 22 10/16/2021 DRUGS OF ABUSE PANEL , URINE cannabinoids /THC, urine NEGATI VE neg Not Available [facility] (Lab) [place], [address], 10/17/2021 00:24:41 10/17/19 22 10/16/2021 DRUGS OF ABUSE PANEL , URINE cocaine, urine NEGATI VE neg Not Available [facility] (Lab) [place], [address], 10/17/2021 00:24:41 10/17/19 22 10/16/2021 DRUGS OF ABUSE PANEL , URINE methadone, urine NEGATI VE neg Not Available [facility] (Lab) [place], [address], 10/17/2021 00:24:41 10/17/19 22 10/16/2021 DRUGS OF ABUSE PANEL , URINE opiates, urine NEGATI VE neg Not Available [facility] (Lab) [place], [address], 10/17/2021 00:24:41 10/17/19 22 10/16/2021 DRUGS OF [...] 300 MG/ML PCP- 25 NG/ML Not Available [facility] (Lab) [place], [address], 10/17/2021 00:24:41 10/17/19 22 10/16/2021 DRUGS OF ABUSE PANEL , URINE creatinine, urine 18.5 mg/dL 28-217 low Not Available [facility] (Lab) [place], [address], 10/17/2021 00:24:41 10/18/19 22 10/17/2021 CBC WITH DIFF WBC 13.5 x10'3 /uL 4.5-11 .0 high Not Available [facility] (Lab) [address], [place], [address], 10/17/2021 02:14:47 10/18/19 22 10/17/2021 CBC WITH DIFF RBC 3.18 x10'6 /uL 4.20-5 .40 low Not Available [facility] (Lab) [address], [place], [address], 10/17/2021 02:14:47 10/18/19 22 10/17/2021 CBC WITH DIFF hemoglobin 9.6 g/dL 12.0-1 6.0 low Not Available [facility] (Lab) [address], [place], [address], 10/17/2021 02:14:47 10/18/19 22 10/17/2021 CBC WITH DIFF hematocrit 29.2 % 38.0-4 8.0 low Not Available [facility] (Lab) [address], [place], [address], 10/17/2021 02:14:47 10/18/1910/17/2021 CBC WITH DIFF MCV 91.8 fL 81.0-9 9.0 Not Available [facility] (Lab) [address], [place], [address], 10/17/2021 02:14:47 10/18/1910/17/2021 CBC WITH DIFF MCH 30.2 pg 27.0-3 1.0 Not Available [facility] (Lab) [address], [place], [address], 10/17/2021 02:14:47 10/18/19 22 10/17/2021 CBC WITH DIFF MCHC 32.9 g/dL 32.0-3 6.0 Not Available [facility] (Lab) [address], [place], [address], 10/17/2021 02:14:47 10/18/19 22 10/17/2021 CBC WITH DIFF RDW 14.0 % 11.5-1 4.5 Not Available [facility] (Lab) [address], [place], [address], 10/17/2021 02:14:47 10/18/19 22 10/17/2021 CBC WITH DIFF platelet count 242 x10'3 /uL 130-40 0 Not Available [facility] (Lab) [address] [facility], [place], [address], 10/17/2021 02:14:47 10/18/19 22 10/17/2021 CBC WITH DIFF MPV 9.1 fL 9.3-12 .2 low Not Available [facility] (Lab) [address] [facility], [place], [address], 10/17/2021 02:14:47 10/18/19 22 10/17/2021 CBC WITH DIFF diff type AUTOMA YAMIL DIFFER ENTIAL Not Available [facility] (Lab) [address] [facility], [place], [address], 10/17/2021 02:14:47 10/18/19 22 10/17/2021 CBC WITH DIFF neutrophils 63.4 % Not Available [facility] (Lab) [address] [facility], [place], [address], 10/17/2021 02:14:47 10/18/19 22 10/17/2021 CBC WITH DIFF lymphocytes 21.8 % Not Available [facility] (Lab) [address], [place], [address], 10/17/2021 02:14:47 10/18/19 22 10/17/2021 CBC WITH DIFF monocytes 8.1 % Not Available [facility] (Lab) [address], [place], [address], 10/17/2021 02:14:47 10/18/19 22 10/17/2021 CBC WITH DIFF eosinophils 2.1 % Not Available [facility] (Lab) [address], [place], [address], 10/17/2021 02:14:47 10/18/19 22 10/17/2021 CBC WITH DIFF basophils 0.6 % Not Available [facility] (Lab) [address], [place], [address], 10/17/2021 02:14:47 10/18/19 22 10/17/2021 CBC WITH DIFF immature granulocytes 4.0 % Not Available [facility] (Lab) [address], [place], [address], 10/17/2021 02:14:47 10/18/19 22 10/17/2021 CBC WITH DIFF abs. neutrophils 8.60 x10'3 /uL 1.80-7 .70 high Not Available [facility] (Lab) [address], [place], [address], 10/17/2021 02:14:47 10/18/19 22 10/17/2021 CBC WITH DIFF abs. lymphocytes 2.95 x10'3 /uL 1.00-4 .80 Not Available [facility] (Lab) [address], [place], [address], 10/17/2021 02:14:47 10/18/19 22 10/17/2021 CBC WITH DIFF abs. monocytes 1.09 x10'3 /uL 0.24-0 .86 high Not Available [facility] (Lab) [address] [facility], [place], [address], 10/17/2021 02:14:47 10/18/19 22 10/17/2021 CBC WITH DIFF abs. eosinophils 0.28 x10'3 /uL 0.04-0 .36 Not Available [facility] (Lab) [place], [address], 10/17/2021 02:14:47 10/18/19 22 10/17/2021 CBC WITH DIFF abs. basophils 0.08 x10'3 /uL 0.01-0 .08 Not Available [facility] (Lab) [address], [place], [address], 10/17/2021 02:14:47 10/18/19 22 10/17/2021 CBC WITH DIFF abs. immature grans 0.54 x10'3 /uL 0.00-0 .49 high Not Available [facility] (Lab) [address], [place], [address], 10/17/2021 02:14:47 10/18/19 22 10/17/2021 TYPE AND SCREE N ABO/Rh(D) O POSITI VE Not Available [facility] (Lab) [place], [address], 10/17/2021 02:59:40 10/18/1910/17/2021 TYPE AND SCREE N antibody screen NEGATI VE Not Available [facility] (Lab) [place], [address], 10/17/2021 02:59:40 10/18/19 22 10/17/2021 TYPE AND SCREE N xm expiration 2021,2 359 Not Available [facility] (Lab) [address], [place], [address], 10/17/2021 02:59:40 10/19/19 22 10/18/2021 HEMAG FIDENCIO WBC 16.8 x10'3 /uL 4.5-11 .0 high Not Available [facility] (Lab) [address], [place], [address], 10/18/2021 05:54:41 10/19/19 22 10/18/2021 HEMAG FIDENCIO RBC 2.95 x10'6 /uL 4.20-5 .40 low Not Available [facility] (Lab) [address], [place], [address], 10/18/2021 05:54:41 10/19/1910/18/2021 HEMAG FIDENCIO hemoglobin 8.8 g/dL 12.0-1 6.0 low Not Available [facility] (Lab) [address] [facility], [place], [address], 10/18/2021 05:54:41 10/19/1910/18/2021 HEMAG FIDENCIO hematocrit 27.2 % 38.0-4 8.0 low Not Available [facility] (Lab) [address], [place], [address], 10/18/2021 05:54:41 10/19/1910/18/2021 HEMAG FIDENCIO MCV 92.2 fL 81.0-9 9.0 Not Available [facility] (Lab) [address] [facility], [place], [address], 10/18/2021 05:54:41 10/19/19 22 10/18/2021 HEMAG FIDENCIO MCH 29.8 pg 27.0-3 1.0 Not Available [facility] (Lab) [address] [facility] [facility], [place], [address], 10/18/2021 05:54:41 10/19/19 22 10/18/2021 HEMAG FIDENCIO MCHC 32.4 g/dL 32.0-3 6.0 Not Available [facility] (Lab) [address] [facility], [place], [address], 10/18/2021 05:54:41 10/19/1910/18/2021 HEMAG FIDENCIO RDW 13.9 % 11.5-1 4.5 Not Available [facility] (Lab) [address] [facility], [place], [address], 10/18/2021 05:54:41 10/19/19 22 10/18/2021 HEMAG FIDENCIO platelet count 258 x10'3 /uL 130-40 0 Not Available [facility] (Lab) [address] [facility], [place], [address], 10/18/2021 05:54:41 10/19/19 22 10/18/2021 HEMAG FIDENCIO MPV 9.1 fL 9.3-12 .2 low Not Available [facility] (Lab) [place], [address], 10/18/2021 05:54:41 08/01/19 22 07/31/2021 US, obste tric, mater nal evalu ation + anato my, singl e gesta tion No observ ation record ed. [email or web address] [facility] [address] [facility] [place], [address], 10/20/2021 17:43:46 09/04/19 22 09/03/2021 US, obste tric, mater nal evalu ation + anato my, singl e gesta tion No observ ation record ed. [email or web address] [facility] [address] [place], [address], 10/24/2021 12:30:49 10/10/19 22 09/24/2021 US, obste tric, limit ed No observ ation record ed. [email or web address] [address], [place], [address], 10/11/2021 17:04:13 Result Notes None recorded. Problems Name Problem SNOMED Code Status Onset Date Resolution Date Notes Provider Name and Address Organization Details Recorded Time Pregnanc y 24744635 Completed 202106/02/2022 Allison jaramillo, [employer] [facility] 3 15:34:48 Headache 78930370 Completed mag ox, tylenol and caffeine. Used to drink 8 cups of coffee daily. Allison jaramillo, [employer] [facility] 3 15:34:43 Anxiety 20539041 Completed zoloft 50mg/kerri y, increased to 100mg daily 10/09 increased to 200 daily in hospital. Allison jaramillo, [facility] 3 15:34:43 Pregnanc y 57438484 Completed 2021 Allison jaramillo, [employer] [facility] 3 15:34:43 Past pregnanc y history of section 542739709 Completed Allison jaramillo, [employer] [facility] 3 15:34:43 growth restrict ion 58368749 Completed HC 5% seen by [facility] no FU at this time Allison jaramillo, [employer] [facility] 3 15:34:43 Problem Notes None recorded. Procedures Surgical History Date Name Laterality Status Provider Name and Address Organization Details Recorded Time 09/04/19 Date of Last Pap Smear completed Nata Busby [employer] [facility] 05/07/2021 11:54:15 C Section completed Natabailey Busby [facility] [employer] [facility] IV 05/07/2021 11:54:28 Appendectomy completed Natabailey Busby [facility] [employer] [facility] IV 05/07/2021 11:54:28 D & C completed Natabailey Busby [facility] [employer] [facility] IV 05/07/2021 11:54:28 Removal of tonsils completed [facility] [employer] [facility] 05/07/2021 12:52:25 Imaging Results Imaging Date Name Status LastModified by Organiz ation Details LastModified Time 07/31/2021 US, obstetric, maternal evaluation + anatomy, single gestation completed [address] [facility] [address], [address], 10/20/2021 17:43:46 09/03/2021 US, obstetric, maternal evaluation + anatomy, single gestation completed [address] [facility] [address], [address], 10/24/2021 12:30:49 09/24/2021 US, obstetric, limited completed hadley Baxter [address] [facility], [place], [address], 10/11/2021 17:04:13 Procedure Notes None recorded. Medical Equipment None Reported. Allergies Allergen ID Allergen Name Allergen Category Reaction Reaction Severity Criticality Documentation Date Start Date Code Code System Note Provider Name and Address Organization Details Recorded Time 164801 codeine medicatio n Not available Not available [...] kg/m2 97 [degF] 114 mm[Hg] 68 mm[Hg] sAiya Ballard [place] [employer] [facility] 2 11:11:18 Date Recorded Body weight Provider Name an d Address Organization Details Last Updated DateTime 08/21/2021 45044.44656 g IRAM BAEZ MD [address] [facility], [place], [address], [employer] [facility] 08/21/2021 12:03:40 Date Recorded Body height Body mass index (BMI) Body temperature Systolic blood pressure Diastolic blood pressure Provider Name and Address Organization Details Last Updated DateTime 09/24/2021 160.02 cm 27.6 kg/m2 93 [degF] 100 mm[Hg] 60 mm[Hg] Yasmine Cox [place] - [facility] 2 16:19:00 Date Recorded Body weight Provider Name an d Address Organization Details Last Updated DateTime 09/24/2021 72884.41569 g Vanessa Welch, [facility] [address] [place], [address], [facility] [employer] [facility] 09/29/2021 08:16:17 Date Recorded Body height Body temperature Body mass index (BMI) Body weight Systolic blood pressure Diastolic blood pressure Provider Name and Address Organization Details Last Updated DateTime 2 160.02 cm 97 [degF] 28.5 kg/m2 88356.3 7157 g 114 mm[Hg] 58 mm[Hg] Asiya Ballard [facility] [employer] [facility] IV 2 13:12:41 Date Recorded Body height Body mass index (BMI) Body weight Systolic blood pressure Diastolic blood pressure Provider Name and Address Organization Details Last Updated DateTime 10/15/2021 160.02 cm 28.9 kg/m2 68863.55 631 g 108 mm[Hg] 60 mm[Hg] Allison Massey [facility] [employer] [facility] IV 2 12:32:04 Date Recorded Body height Body mass index (BMI) Body temperature Systolic blood pressure Diastolic blood pressure Provider Name and Address Organization Details Last Updated DateTime 2 160.02 cm 26 kg/m2 97 [degF] 110 mm[Hg] 58 mm[Hg] Asiya Ballard [facility] [employer] [facility] IV 2 14:37:36 Date Recorded Body weight Provider Name an d Address Organization Details Last Updated DateTime 10/30/2021 30971.66229 g Allison Cummins [facility] [employer] [facility] 06/02/2022 15:34:45 Social History Question Answer Notes LastModified by Organizat ion Details LastModified Time Tobacco Smoking Status Former Smoker Nata jaramillo, [facility] [employer] [facility] 05/07/2021 11:54:24 What Is Your [...] available 2021 11:54:06 Medical History Condition Response Anxiety Disorder Y Depression Y Gynecological History Statement/Question Response Flow Heavy [...] SNOMED-CT Code Diagnosis ICD10 Code Diagnosis Note [id number] Vanessa granados, [address] [address] 05/07/2021 11:42:40 05/07/2021 17:00:24 Routine care 110618328 Z34.01 Z34.81 O09.511 O09.521 Headache 80225074 R51.9 Anxiety 50318810 F41.9 [id number] Caty Gandara, [address] [address] 06/04/2021 12:07:16 06/04/2021 14:22:08 Normal in multigravida 9081781207 62611 Z34.82 Gestation period, 17 weeks 99382031 Z3A.17 SAB precaution s given. FM awareness discussed. F/u in L&D if experienci ng leaking fluid, cramping not relieved by rest and fluids, bleeding with or without cramping; fever 100.4 x 24 hrs or 101 or greater anytime. [id number] Vanessa granados, [address] [address] 07/16/2021 11:09:23 07/17/2021 11:03:50 Routine care 130827512 Z34.01 Z34.81 O09.511 O09.521 screening for malformation 094289664 Z36.3 [id number] IRAM HERRERA MD [address] [address] 08/21/2021 10:32:03 10/29/2021 11:48:14 Gestation period, 28 weeks 14691931 Z3A.28 Supervisio n of high risk with history of previous section done 7924825319 9106 O09.899 Mood disorder 50808389 F 39 [id number] Vanessa granados, [address] [address] 09/24/2021 15:26:51 10/21/2021 14:08:52 [id number] JULIETTE SEAY, [facility] h [address] [place] [address] 10/09/2021 12:36:01 10/09/2021 14:04:54 Vaginal swab taken 958104033 Z75.2 collected Mixed anxi ety and depressive disorder 352191393 F41.8 increasing zoloft to 100mg today. Vaginitis 83156950 N76.0 Gestation period, 35 weeks 53441814 Z3A.35 IUP @ 35+ wks. US: No OB complaints . . PTL precaution s. RTO 1 wk. [id number] Vanessa CrumpAnabellaKenneth granados, [facility] [address] [place] [address] 10/15/2021 12:19:50 10/15/2021 15:54:26 [id number] JULIETTE SEAY [facility] [address] [place] [address] 10/30/2021 14:10:23 10/30/2021 14:55:16 Surgical incision wound of skin 8497537209 00 R23.8 31 y.o. s/p LTCS on [...] 6 week visit.- RTO 4 weeks state 8801736 1 Z39.2 Health Concerns Section Related Observation LastModified by Organization Detai ls LastModified Time None Recorded Concern Status LastModified by Organization Details LastModified Time None Recorded Advance Directives Directive None Recorded Payers Encounter Date Sequence Insurance Name Policy Number Policy Dennsi Covered Member ID Dennis Member ID Guarantor Name 08/21/2021 1 [facility] (MEDICAID HMO) [id number] Darlin Silvestre [id number] Darlin Silvestre 09/24/2021 1 [facility] (MEDICAID HMO) [id number] 0003 Darlin Silvestre [id number] Darlin Silvestre 10/09/2021 1 [facility] (MEDICAID HMO) [id number] Darlin Mckinleyyer [id number] Darlin Silvestre 10/15/2021 1 [facility] (MEDICAID HMO) [id number] Darlin Walleremeyer [id number] Darlin Mckinleyyer 10/30/2021 1 [facility] (MEDICAID HMO) [id number] 0003 Darlin Walleremeyer [id number] Darlin Walleremeyer Notes Date Note Type Note [...] BPD- followed by MFM. IRAM BAEZ MD [facility] [place], [address], [employer] [facility] 10/26/2021 21:38:35 09/24/2021 text/html _Darlin is here today for a routine OB visit. She is currently at _33.5_weeks gestation. She has no complaints or questions. She is taking vitamins. She has felt movement. She denies the presence of vaginal bleed, leaking fluid, abdominal cramps, nausea, vomiting. There are no identifiable risk factors for pre-term labor. Vanessa Welch CNM [facility] [place], [address], [place] [employer] 09/29/2021 08:18:07 10/09/2021 text/html OB ProblemReport ed bypatient.Location:[facility]; lower back Associated Symptoms:abdominal pain;cramping;contrac tions;nausea;edema;vi sual changes;headache;dizz iness JULIETTE SEAY, [facility] [address] [place], [address], [facility] [employer] 10/09/2021 14:04:47 10/30/2021 text/html VisitReported bypatient.Associated Symptoms:no abnormal bleeding; no vaginal discharge; no pelvic pain; laceration well healed; no constipation; no fecal incontinence; no dysuria; no urinary incontinence; no fever; no problems; no mastitis; normal mood JULIETTE SEAYCASSIDY [address] [place], [address], [facility] [employer] 10/30/2021 14:55:08 OBGyn Episode Ob Episode Information Episode Created Date Number of Fetuses Patient Bloodtype Patient rh Status Prepregnancy Weight lbs Domestic Partner Domestic Partner Phone Father Name Hammerer Status 05/08/19 22 1 O Positive CLOSED Fetus Data First Name Last Name Admitted to NICU Weight (g) Sex Living Outcome Pediatric Complications Fetus ID Race Codes Race Delivery Type F true Full Term [id number] Repeat Problems Problem Notes repeat CS scheduled 11/03 Elsie Kerns Problem Name Start Date End Date Resolution Snomed Code Not e Past history of section 174728226 growth restriction 24494620 HC 5% seen by M FM no FU at this time Headache 83431501 mag ox, ty lenol and caffeine. Used to drink 8 cups of coffee daily. Anxiety 53627297 zoloft 50m g/daily, increased to 100mg daily 10/09increased to 200 daily in hospital. 05/07/2021 84643730 Morro Calculation Initial Morro Date Initial Exam [...] 022 0 Pre-phyllis Flowsheet Flowsheet Date 05/07/2021 Davison Score Blood Edema Fundus Height Fundus Units Glucose Ketones Leukocytes Nitrite Labor Signs Protein Cervic Dilation Cervic Effacement Cervic Station trace neg Type Weight in lbs Pre/Post Dialysis Refused Weight 122.655272078664 BP Diastolic BP Location Tested BP Systolic BP Type 72 110 Fetus Heart Rate Present Fetus Movement Comments US today, oriented to practi ce. Flowsheet Date 06/04/2021 Davison Score Blood Edema Fundus Height Fundus Units Glucose Ketones Leukocytes Nitrite Labor Signs Protein Cervic Dilation Cervic Effacement Cervic Station none none none neg Type Weight in lbs Pre/Post Dialysis Refused With clothes 131.733818146115 BP Diastolic BP Location Tested BP Systolic [...] in lbs Pre/Post Dialysis Refused With clothes 139.196273084947 BP Diastolic BP Location Tested BP Systolic [...] Weight in lbs Pre/Post Dialysis Refused Weight 147.899876529648 BP Diastolic BP Location Tested BP Systolic [...] Weight in lbs Pre/Post Dialysis Refused Weight 156.627744896654 BP Diastolic BP Location Tested BP Systolic [...] Dilation Cervic Effacement Cervic Station none none [place] Jaramillo neg 0cm 0% -3 Type Weight in lbs Pre/Post Dialysis Refused Weight 161.891019431704 BP Diastolic BP Location Tested BP Systolic [...] Weight in lbs Pre/Post Dialysis Refused Weight 163.145744071267 BP Diastolic BP Location Tested BP Systolic [...] Weight in lbs Pre/Post Dialysis Refused Weight 147.809589406993 BP Diastolic BP Location Tested BP Systolic [...] Disease false Other Infection History false Thalassemia (Finnish, Icelandic, Mediterranean, Or Background): MCV < 80 false [...] false History of Hepatitis false Padilla-Sachs (eg, Cheondoism, Cajun, Yemeni-Albanian) f alse History Of STD, Gonorrhea, Chlamydia, HPV, Syphi lis false Prior GBS-infected child false History of HIV false Personal or Family History o f Neural Tube Defect (Meningomyelocele, Spina Bifida, Or Anencephaly) false Hemophilia Or Other Blood Disorders false Mental Retardation/Autism false Leona's Chorea false If Yes, Was Person Tested [...]
--- OUTSIDE RECORDS SUMMARY | 2024-05-23 19:27 | XMS_ITS | Data Portability ---
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 Discussed plan. Not available 05/18/2024 11:15:05 Plan of Treatment Reminders Order Date Submit Date Provider Last Modified By Organization Details Last Modified Time Details Appointments SURG CSection 2024 01:30P Marisol BORGES MD Not available Not available Not available Lab None recorded. Referral None recorded. Procedures None recorded. Surgeries section (SURG) 2024 025 [id number] [facility], [address], [place], [address], 05/15/2024 12:46:49 Imaging US, obstetric , follow-up 2024 025 [email or web address] [place], [address], [place], [address], 05/12/2024 12:14:32 Medication Orders None recorded. Patient TargetsNo targets recorded. Patient InstructionsNo instructions recorded. Reason for Referral None Reported. Results Created Date Observation Date Name Description Value Unit Range Abnormal Flag Note LastModifiedBy Organization Detail LastModifiedTime 03/22/1903/22/2024 HEMOG LOBIN (HGB) HGB 10.1 g/dL (based on docume nted legal sex) 11.6-1 5.4 low Not Available [facility] (Lab) [address] [facility], [place], [address], 03/23/2024 12:36:06 03/22/19 25 03/22/2024 HEMAT OCRIT (HCT) HCT 31.2 % (based on docume nted legal sex) 34.0-4 5.0 low Not Available [facility] (Lab) [address], [place], [address], 03/23/2024 12:36:06 03/22/19 25 03/22/2024 GTT - GESTA JEFF L SCREE N, ACOG OB glucose, 1 hour screen 125 mg/dL 70-135 Not Available [facility] (Lab) [address], [place], [address], 03/23/2024 12:36:07 03/22/19 25 03/22/2024 HIV 1/2 ANTIG EN/AN TIBOD Y, REFLE X CONFI RMATI ON HIV antigen/anti body Nonrea ctive nonrea ctive HIV-1 antig en and HIV-1 /HIV- 2 antib odies were not detec duke. No labor atory evide nce of HIV infec tion. Not Available [facility] (Lab) [address], [place], [address], 03/23/2024 12:36:07 03/22/19 25 03/22/2024 RPR SCREE N, REFLE X TITER /CONF IRMAT ION RPR screen Nonrea ctive nonrea ctive Not Available [facility] (Lab) [address] [facility], [place], [address], 03/23/2024 12:36:07 03/22/19 25 03/22/2024 US, obste tric, follo w-up No observ ation record ed. [email or web address] [place] [address], [place], [address], 03/22/2024 18:13:20 03/22/19 25 03/22/2024 US, obste tric, follo w-up No observ ation record ed. [email or web address], [place], [address], 03/26/2024 23:18:48 05/04/19 25 05/03/2024 imagi ng/di agnos tic resul t No observ ation record ed. [facility] [address], [place], [address], 05/08/2024 14:52:28 05/12/19 25 05/11/2024 US, obste tric, follo w-up No observ ation record ed. [facility] [address], [place], [address], 05/11/2024 18:15:42 05/12/19 25 05/11/2024 US, obste tric, follo w-up No observ ation record ed. [email or web address], [place], [address], 05/16/2024 22:33:27 Result Notes None recorded. Problems Name Problem SNOMED Code Status Onset Date Resolution Date Notes Provider Name and Address Organization Details Recorded Time 38028989 Active 2023 Yohana jaramillo, [facility] 4 15:35:16 Past history of section 378968630 Active x4, plan for repeat BESS REY MD [address], [place], [address], [facility] 4 16:26:20 Migraine 75781518 Active sumatript an, caffeine BESS REY MD [address], [place], [address], [facility] 4 16:26:35 Venous henriquez 740051931 Active Sylvia jaramillo, [facility] 22:46:43 Venous henriquez 304370846 Active Sylvia Vasquez clint [facility] 22:46:43 Problem Notes None recorded. Procedures Surgical History Date Name Laterality Status Provider Name and Address Organization Details Recorded Time 2 Date of Last Pap Smear completed Rachel Reno [facility] 10/12/2023 15:00:58 7 [facility] 11/14/2023 15:47:04 4 section [facility] 11/14/2023 15:46:[address] [facility] 11/14/2023 15:46:28 9 Removal of tonsils completed [facility] 11/14/2023 15:47:28 Imaging Results Imaging Date Name Status LastModified by Organiz ation Details LastModified Time 03/22/2024 US, obstetric, follow-up completed [address], [place], [address], 03/22/2024 18:13:20 03/22/2024 US, obstetric, follow-up completed [email or web address] [address], [place], [address], 03/26/2024 23:18:48 05/03/2024 imaging/diag nostic result completed [facility] [address], [place], [address], 05/08/2024 14:52:28 05/11/2024 [facility] [address], [place], [address], 05/11/2024 18:15:42 05/11/2024 US, obstetric, follow-up completed [email or web address] [facility], [place], [address], 05/16/2024 22:33:27 Procedure Notes None recorded. Medical Equipment None Reported. Allergies Allergen ID Allergen Name Allergen Category Reaction Reaction Severity Criticality Documentation Date Start Date Code Code System Note Provider Name and Address Organization Details Recorded Time 36479 codeine medicatio n Not available Not available Not available 10/12/2023 2670 [facility] 14:59:59 18449 hydroxyzi ne Not available Not available Not available Not available 10/12/2023 5553 RxNorm Rachel [facility] 4 15:00:11 Medications Name Sig Start [...] Updated DateTime 04/09/2024 162.56 cm 32.1 kg/m2 60567.77 319 g 123 mm[Hg] 76 mm[Hg] Yohana Garcia [facility] 5 12:34:09 Date Recorded Body height Body mass index (BMI) Body weight Systolic blood pressure Diastolic blood pressure Provider Name and Address Organization Details Last Updated DateTime 04/27/2024 162.56 cm 32.8 kg/m2 93021.14 g 116 mm[Hg] 76 mm[Hg] [facility] 10:42:40 Date Recorded Body height Body mass index (BMI) Body weight Systolic blood pressure Diastolic blood pressure Provider Name and Address Organization Details Last Updated DateTime 05/11/2024 162.56 cm 33.1 kg/m2 68832.33 g 121 mm[Hg] 74 mm[Hg] [facility] 12:25:52 Date Recorded Body height Body mass index (BMI) Body weight Systolic blood pressure Diastolic blood pressure Provider Name and Address Organization Details Last Updated DateTime 05/18/2024 162.56 cm 33.1 kg/m2 36922.33 g 119 mm[Hg] 78 mm[Hg] SHANNAN Mcleod [facility] 11:15:47 Social History Question Answer Notes LastModified by Vaxart Details LastModified Time Are You Blind Or Do You Have Difficulty Seeing? No [email or web address] Information not available 04/09/2024 In The 14 Days Before Symptom Onset, Have You Had Close Contact With A Laboratory-confirmed COVID-19 While That Case Was Ill? No [email or web address] Information not available 11/14/2023 In The 14 Days Before Symptom Onset, Have You Had Close Contact With A Person Who Is Under Investigation For COVID-19 While That Person Was Ill? No [email or web address] Information not available 11/14/2023 Have You Been To An Area Known To Be High Risk For COVID-19? No [email or web address] Information not available 11/14/2023 Are You Deaf Or Do You Have Serious Difficulty Hearing? No [email or web address] Information not available 04/09/2024 Are You Sexually Active? Yes [email or web address] Information not available 04/09/2024 Do You Have Smoke And Carbon Monoxide Detectors In Your Home? Yes [email or web address] Information not available 04/09/2024 Do You Use Sunscreen Routinely? Yes [email or web address] Information not available 04/09/2024 Sex: Unknown Functional Status Question Answer Note LastModified by Organizat ion Details LastModified Time Do you have difficulty walking or climbing stairs? No [email or web address] Information not available 04/09/2024 Are you able to walk? YESWOREST [email or web address] Information not available 04/09/2024 Are you able to care for yourself? Yes [email or web address] Information not available 04/09/2024 Do you have difficulty dressing or bathing? No Information not available 04/09/2024 Mental Status None [...] SNOMED-CT Code Diagnosis ICD10 Code Diagnosis Note [id number] Nayeli Verdin [place] [address] [address] 10/12/2023 14:01:19 10/12/2023 15:23:49 Uterine size for dates discrepancy 299251428 O26.841 Z3A.01 [id number] BESS REY MD [place] [address],[place] [address] 10/12/2023 14:26:19 10/13/2023 10:36:02 Nausea and vomiting 18642757 R11.2 test positive 102267949 Z32.01 1. Exam today within normal limits.2. [...] Uterine sc ar from previous surgery affecting 55987167 O34.29 - c section x4- discussed risks of higher order c sections, including uterine rupture or scar tissue- will monitor placenta closely during US Migraine 40109542 G43.90 9 - recommend tylenol as first line therapy- ok for sumatripta n PRN [id number] Lanette Zhang [place] [address],[place] [address] 11/14/2023 14:39:14 11/14/2023 15:35:33 screening 142363640 Z36.82 Z3A.11 [id number] BESS REY MD [place] [address],[place] [address] 11/14/2023 14:40:12 11/14/2023 16:59:32 Routine care 758406848 Z34.91 Gestation period, 12 weeks 86165306 Z3A.12 - continue vitamin Uterine sc ar from previous surgery affecting 71390481 O34.29 - c section x4- discussed risks of higher order c sections, including uterine rupture or scar tissue- will monitor placenta closely during US Migraine 79926855 G43.90 9 - recommend tylenol as first line therapy and caffeine- ok for sumatripta n PRN [id number] BESS REY MD [place] [address],[place] [address] 12/20/2023 11:46:50 12/21/2023 12:46:29 Uterine scar from previous surgery affecting 44676330 O34.29 - c section x4- discussed risks of higher order c sections, including uterine rupture or scar tissue- will monitor placenta closely during US Migraine 18285969 G43.90 9 - recommend tylenol as first line therapy and caffeine- ok for sumatripta n PRN Gestation period, 16 weeks 82330303 Z3A.16 - continue PNV [id number] [facility] [address],[place] [address] 01/17/2024 11:28:58 01/17/2024 12:44:50 screening for malformation 215468802 Z36.3 Z3A.20 [id number] BESS REY MD [place] [address],[place] [address] 01/17/2024 11:29:13 01/20/2024 08:54:38 Uterine scar from previous surgery affecting 18517927 O34.29 - c section x4- discussed risks of higher order c sections, including uterine rupture or scar tissue- normal appearing anterior uterine wall with posterior placenta Gestation period, 20 weeks 60920646 Z3A.20 - continue PNV [id number] BESS REY MD [place] [address],[place] [address] 03/09/2024 12:10:17 03/12/2024 09:04:41 Uterine scar from previous surgery affecting 81697510 O34.29 - c section x4- discussed risks of higher order c sections, including uterine rupture or scar tissue- normal appearing anterior uterine wall with posterior placenta Gestation period, 28 weeks 40574759 Z3A.28 [id number] [facility] [address],[place] [address] 03/22/2024 14:58:48 03/22/2024 15:36:30 Uterine size for dates discrepancy 458051722 O26.843 O36.60X0 Z3A.30 [id number] BESS REY MD [place] [address] [address] 03/22/2024 14:59:01 03/22/2024 16:19:14 Uterine scar from previous surgery affecting 36028177 O34.29 - c section x4- discussed risks of higher order c sections, including uterine rupture or scar tissue- normal appearing anterior uterine wall with posterior placenta Gestation period, 30 weeks 99754318 Z3A.30 - continue PNV [id number] BESS REY MD [place] [address],[place] [address] 04/09/2024 12:29:02 04/09/2024 14:21:48 Uterine scar from previous surgery affecting 99269376 O34.29 - c section x4- discussed risks of higher order c sections, including uterine rupture or scar tissue- normal appearing anterior uterine wall with posterior placenta Gestation period, 32 weeks 4244896 Z3A.32 Anemia of 2734 2003 O99.019 - repeat Hgb/Fe panel at 36 weeks [id number] BESS REY MD [place] [address],[place] [address] 04/27/2024 10:04:36 04/27/2024 11:18:46 Uterine scar from previous surgery affecting 29837086 O34.29 - c section x4- discussed risks of higher order c sections, including uterine rupture or scar tissue- normal appearing anterior uterine wall with posterior placenta Gestation period, 35 weeks 04887953 Z3A.35 [id number] [facility] [address],[place] [address] 05/11/2024 11:23:10 05/11/2024 12:13:20 Large for gestation age fetus 823047756 O36.63X0 Z3A.37 [id number] BESS REY MD [place] [address],[place] [address] 05/11/2024 11:24:13 05/14/2024 11:33:51 Uterine scar from previous surgery affecting 43759282 O34.29 - c section x4- discussed risks of higher order c sections, including uterine rupture or scar tissue- normal appearing anterior uterine wall with posterior placenta Excessive growth affecting management of mother 16196374 O36.63X0 - EFW 93% at 37 weeks Gestation period, 37 weeks 22434375 Z3A.37 [id number] MD Juliane MCKEON [address],[place] [address] 05/18/2024 10:51:23 05/18/2024 22:58:03 Health Concerns Section Related Observation LastModified by Organization Detai ls LastModified Time None Recorded Concern Status LastModified by Organization Details LastModified Time None Recorded Advance Directives Directive None Recorded Payers Encounter Date Sequence Insurance Name Policy Number Policy Dennis Covered Member ID Dennis Member ID Guarantor Name 04/09/2024 1 [facility] [id number] Darlin Silvestre [id number] Darlin Silvestre 04/27/2024 1 [facility] (MEDICAID HMO) [id number] Darlin Walleremeyer [id number] Darlin Silvestre 05/11/2024 1 [facility] ([place] H[place]) [id number] Darlin Silvestre [id number] Darlin Silvestre 05/11/2024 1 [employer] ([place]ICAID HMO) [id number] Darlin Silvestre [id number] Darlin Silvestre 05/18/2024 1 [facility] [id number] Darlin Silvestre [id number] Darlin Silvestre OBGyn Episode Ob Episode Information Episode Created Date Number of Fetuses Patient Bloodtype Patient rh Status Prepregnancy Weight lbs Domestic Partner Domestic Partner Phone Father Name Chef Instructor Status 10/12/19 1 CLOSED Fetus Data First Name Last Name Admitted to NICU Weight (g) Sex Living Outcome Pediatric Complications Fetus ID Race Codes Race Delivery Type F Full Term 29419 Primary Morro Calculation Initial [place] Date Initial [...] Domestic Partner Domestic Partner Phone Father Name Chef Instructor Status 10/12/19 24 1 CLOSED Fetus Data First Name Last Name Admitted to NICU Weight (g) Sex Living Outcome Pediatric Complications Fetus ID Race Codes Race Delivery Type F Full Term 00137 Repeat Morro Calculation Initial [place] Date Initial [...] Domestic Partner Domestic Partner Phone Father Name Chef Instructor Status 10/12/19 24 1 CLOSED Fetus Data First Name Last Name Admitted to NICU Weight (g) Sex Living Outcome Pediatric Complications Fetus ID Race Codes Race Delivery Type F Full Term 54491 Repeat Mroro Calculation Initial Mor[place] Date Initial Exam Date [...] Domestic Partner Domestic Partner Phone Father Name Chef Instructor Status 11/14/19 24 1 O Positive 167 OPEN Fetus Data First Name Last Name Admitted to NICU Weight (g) Sex Living Outcome Pediatric Complications Fetus ID Race Codes Race Delivery Type 03466 Problems Problem Notes UDS+ [id number] us Problem Name Start Date End Date Resolution Snomed Code Not e Venous henriquez [id number] Migraine 55709602 sumatripta n, caffeine Past history of section 947911222 x4, plan for repeat Morro Calculation Initial [...] Date Ultra Sound Latest Days Gestation 0 11/14/2023 05/31/19 25 0 Pre-phyllis Flowsheet Flowsheet Date 11/14/2023 Davison Score Blood Edema Fundus Height Fundus Units Glucose Ketones Leukocytes Nitrite Labor Signs Protein Cervic Dilation Cervic Effacement Cervic Station neg none none trace Type Weight in lbs Pre/Post Dialysis Refused Weight 161.167507158866 BP Diastolic BP Location Tested BP Systolic BP Type 72 L arm 109 sitting Fetus Heart Rate Present A Present Fetus Movement Comments Patient presents to [facility] care. She has a history of [...] Type Weight in lbs Pre/Post Dialysis Refused 170.043712244382 BP Diastolic BP Location Tested BP Systolic [...] Weight in lbs Pre/Post Dialysis Refused Weight 175.399575390585 BP Diastolic BP Location Tested BP Systolic [...] Weight in lbs Pre/Post Dialysis Refused Weight 182.564297235982 BP Diastolic BP Location Tested BP Systolic [...] Weight in lbs Pre/Post Dialysis Refused Weight 185.659480963777 BP Diastolic BP Location Tested BP Systolic BP Type 69 L arm 104 sitting Fetus Heart Rate Present A Present Fetus Movement A Yes Comments Good movement. No cram ping or bleeding. GCT and labs today. EFW 90%, YVAN wnl. Will repeat at 36 weeks to reevaluate anterior uterine wall but plan for 39 week c section. RTC 2 weeks. Flowsheet Date 04/09/2024 Daviosn Score Blood Edema Fundus Height Fundus Units Glucose Ketones Leukocytes Nitrite Labor Signs Protein Cervic Dilation Cervic Effacement Cervic Station neg none Type Weight in lbs Pre/Post Dialysis Refused 187.110514399586 BP Diastolic BP Location Tested BP Systolic BP Type 76 L arm 123 sitting Fetus Heart Rate Present A 140 Fetus Movement A Yes Comments Patient c/o Capo Jaramillo, p elvic pain. Good movement. Will [...] Weight in lbs Pre/Post Dialysis Refused Weight 191.112708021247 BP Diastolic BP Location Tested BP Systolic BP Type 76 L arm 116 sitting Fetus Heart Rate Present Fetus Movement A Yes Comments Patient c/o Juniata Jaramillo. G ood movements. No strong contractions. Discussed RCS tentatively on 05/23. Will discuss again next week. Repeat anemia labs next week. Labor precautions reviewed. RTC 1 week. Flowsheet Date 05/11/2024 Davison Score Blood Edema Fundus Height Fundus Units Glucose Ketones Leukocytes Nitrite Labor Signs Protein Cervic Dilation Cervic Effacement Cervic Station Type Weight in lbs Pre/Post Dialysis Refused BP Diastolic BP Location Tested BP Systolic BP Type Fetus Heart Rate Present Fetus Movement Comments Flowsheet Date 05/11/2024 Davison Score Blood Edema Fundus Height Fundus Units Glucose Ketones Leukocytes Nitrite Labor Signs Protein Cervic Dilation Cervic Effacement Cervic Station neg none Type Weight in lbs Pre/Post Dialysis Refused Weight 193.413158402359 BP Diastolic BP Location Tested BP Systolic BP Type 74 L arm 121 sitting Fetus Heart Rate Present A 140 Fetus Movement A Yes Comments Patient c/o of pelvic pressu re and Juniata Jaramillo. No strong contractions however becoming very uncomfortable. Good movement. EFW 93%, vertex. WIll plan for RCS 05/23. RTC 1 week. Flowsheet Date 05/18/2024 Davison Score Blood Edema Fundus Height Fundus Units Glucose Ketones Leukocytes Nitrite Labor Signs Protein Cervic Dilation Cervic Effacement Cervic Station neg none none neg Type Weight in lbs Pre/Post Dialysis Refused Weight 193.950376858722 BP Diastolic BP Location Tested BP Systolic BP Type 78 L arm 119 sitting Fetus Heart Rate Present Fetus Movement A Yes Comments patient is having mild back pain with slight contractions Menstrual History Last Menstrual Date Menses Monthly [...] Domestic Partner Domestic Partner Phone Father Name Chef Instructor Status 10/12/19 24 1 CLOSED Fetus Data First Name Last Name Admitted to NICU Weight (g) Sex Living Outcome Pediatric Complications Fetus ID Race Codes Race Delivery Type , Spontane ous 81169 Morro Calculation Initial [place] Date Initial Exam [...] Domestic Partner Domestic Partner Phone Father Name Chef Instructor Status 10/12/19 24 1 CLOSED Fetus Data First Name Last Name Admitted to NICU Weight (g) Sex Living Outcome Pediatric Complications Fetus ID Race Codes Race Delivery Type Prematur e 15381 Mor[place] Calculation Initial [place] Date Initial Exam [...] Domestic Partner Domestic Partner Phone Father Name Chef Instructor Status 10/12/19 24 1 CLOSED Fetus Data First Name Last Name Admitted to NICU Weight (g) Sex Living Outcome Pediatric Complications Fetus ID Race Codes Race Delivery Type F Full Term 73255 Repeat Morro Calculation Initial [place] Date Initial [...]
--- OUTSIDE RECORDS SUMMARY | 2024-05-23 19:27 | XMS_ITS | Clinical Summary ---
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
--- OUTSIDE RECORDS SUMMARY | 2024-05-23 19:27 | XMS_ITS | Clinical Summary ---
Author Organization [facility] Address [address] [place] [address] Care Team Providers Care Family Consultant Name Role Phone None, Provider MD Primary Care Provider Unavaila ble Allergies Active Allergy Reactions Criticality Noted Date Comments Codeine Vomiting Low 10/05/2021 Hydroxyzine Vomiting Low 10/13/2021 Medications vitamin (ZATEAN-PN PLUS) 28-0.6-0.4-340 MG capsule Take 1 capsule by mouth daily. Active ferrous sulfate, 65 mg elemental, 325 (65 FE) MG tablet Take 1 tablet (325 mg total) by mouth daily with breakfast. Active Active Problems Problem Noted Date Diagnosed Date H/O section 10/17/2021 Delivery with history of section (HHS/H CC) 10/17/2021 Estimated Date of Delivery Comme nts Yes 05/30/2024 Based on Other B asis Encounters Date Type Department Care Team Description 05/16/2024 6:41 AM CDT - 05/16/2024 8:40 AM CDT Hospital Encounter [facility] [address] [facility] [place] [address] Gamal Payton MD Discharge Disposition: Home or Self Care (Routine Discharge) from Last 3 Months Social History Tobacco Use Types Packs/Day Years [...] place to sleep or slept in a correction (including now)? No 10/05/2021 Depression Answer Date Recor ded Last EPDS Total Score 12 10/18/2021 Last EPDS Self Harm Result 10/18 Education Answer Date Recorded What is the highest level of school you have completed or the highest degree you have received? 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 Gender Identity Female 10/05/2021 8:58 PM CDT Sexual Orientation Straight 10/05/2021 8: 58 PM CDT Last Filed Vital Signs Vital Sign Reading Time Taken Comments Blood Pressure 114/63 05/16/2024 7:32 AM CDT Pulse 88 05/16/2024 7:32 AM CDT Temperature 36.6 C (97.9 F) 05/16/2024 7:33 AM CDT Respiratory Rate 18 05/16/2024 7:56 AM CDT Oxygen Saturation 98% 07/10/2023 11:03 PM CDT Inhaled Oxygen Concentration - - Weight 86.2 kg (190 lb) 05/16/2024 7:35 AM CDT Height 162.6 cm (5' 4 ) 05/16/2024 7:35 AM CDT Body Mass Index 32.61 05/16/2024 7:35 AM CDT Plan of Treatment Health Maintenance Due Date Last Done Comments Cervical Cancer Screening Pap Smear (Age 30 to 64) Every 3 Years 1992 Annual Physical 07/30/1995 HPV Vaccines (3 - 2-dose series) 05/26/2007 01/26/2007, 11/24/2006 Cervical Cancer Screening Pap with HPV Testing (Age 30 to 64) Every 5 Years 2022 Cervical Cancer Screening with HPV 2022 COVID-19 Vaccine ( season) 2023 DTaP, Tdap and Td Vaccines (9 [...] patient's age to complete this topic RSV Immunization or 60+ Years (No Doses Required) Completed RSV Immunizations Under 20 Months Aged Out No longer eligible based on patient's age to complete this topic Procedures Procedure Name Priority Date/Time Associated Diagnosis Comments HC URINALYSIS AUTO W/MICRO STAT 05/16/2024 6:56 AM CDT Decreased movement (HHS/HCC) HEPATITIS C ANTIBODY Routine 08/21/2021 from Last 3 Months or Most Recently Relevant to Health Maintenance Results * (ABNORMAL) URINALYSIS (05/16/2024 6:56 AM CDT) COLOR (U) YELLOW 05/16/2024 7:23 AM CDT [facility] TRANSPARENCY CLEAR 05/16/2024 7:23 AM CDT [facility] SPECIFIC GRAVITY (U) 1.025 1.000 - 1.025 05/16/2024 7:23 AM CDT [facility] U PH 7.0 5.0 - 8.0 05/16/2024 7:23 AM CDT [facility] LEUKOCYTES (U) NEGATIVE NEGATIVE 05/16/2024 7:23 AM CDT [facility] NITRITES NEGATIVE NEGATIVE 05/16/2024 7:23 AM CDT [facility] PROTEIN RANDOM (U) NEGATIVE NEGATIVE 05/16/2024 7:23 AM CDT [facility] GLUCOSE (U) NEGATIVE NEGATIVE 05/16/2024 7:23 AM CDT [facility] KETONES MG/DL (U) NEGATIVE NEGATIVE 05/16/2024 7:23 AM CDT [facility] UROBILINOGEN 0.2 <1.0 EU/DL 05/16/2024 7:23 AM CDT [facility] BILIRUBIN (U) NEGATIVE NEGATIVE 05/16/2024 7:23 AM CDT [facility] BLOOD (U) NEGATIVE NEGATIVE 05/16/2024 7:23 AM CDT [facility] WBC/HPF NONE SEEN(A) 0 - 5 /HPF 05/16/2024 7:23 AM CDT [facility] EPI/LPF FEW /LPF 05/16/2024 7:23 AM CDT [facility] BACTERIA (U) TRACE /HPF 05/16/2024 7:23 AM CDT [facility] URINE SPECIMEN OBTAINED BY CLEAN CATCH PROCEDURE / Unknown 05/16/2024 6:56 AM CDT Gamal Payton MD URINE ORDERABLES Final Result [facility] [address] [place] [id number], * HEPATITIS C ANTIBODY (08/21/2021) HEPATITIS C AB Negative Doc [facility] Final Result from Last 3 Months or Most Recently Relevant to Health Maintenance Additional Health Concerns Infection Onset Date Last Indicated MRSA 03/08/2018 03/08/2018 Insurance DAVILA Advance Directives * Full Code (Latest Code Status on File) Date Activated Date Inactivated Comments 10/17/2021 5:01 AM 10/20/2021 7:06 PM Care Teams Family Consultant Relationship Specialty Start Date End Date None, Provider, PCP - General 10/05/21
--- OUTSIDE RECORDS SUMMARY | 2024-05-23 19:27 | XMS_ITS | Referral Summary ---
Author Organization [facility] Address [address] [place] [address] Care Team Providers Care Litigation Support Analyst Name Role Phone Shilpa Perez Primary Care Provider [phone] Allergies No known active allergies Medications No [...] Plan of Treatment Not on file Insurance [facility] Care Teams Litigation Support Analyst Relationship Specialty Start Date End Date Shilpa Perez PA [address] [place] [id number] PCP - General Physician Car Wash Manager 09/25/20
--- OUTSIDE RECORDS SUMMARY | 2024-05-23 19:27 | XMS_ITS | Clinical Summary ---
Author Organization [facility] Address [address] [place] [address] Care Team Providers Care Coil Cutter Name Role Phone Shilpa Perez PA-C Primary Care Provider + Source Comments [facility],non-owned Affiliates and Associated Physician Practices is amultiple site organization consisting of ambulatory clinics and hospital sitesin [place], [place], [place] and [place]. This disclosure is being madepursuant to the Care Everywhere program and may not contain all information available regarding this patient. Last updated 17.[facility] Allergies Active Allergy Reactions Criticality Noted Date [...] disorder in full remission, unspecified whether recurrent Take 1 (one) tablet by mouth every morning 30 tablet 1 09/09/2020 Active propranolol (INDERAL) 10 MG tabletIndications:Anx iety Take 1 (one) tablet by mouth as needed 30 tablet 09/09/2020 Active propranolol CR 24hr (INDERAL LA) 60 MG capsuleIndications:An xiety Take 1 (one) capsule by mouth once daily 30 capsule 1 09/09/2020 Active escitalopram (LEXAPRO) 10 MG tabletIndications:Manpreet or depressive disorder in full remission, unspecified whether recurrent TAKE ONE-HALF TABLET BY MOUTH DAILY FOR [...] 05/12/2018 H/O section x2 09/17/2016 Major depressive disorder, single episode, moder ate 09/07/2016 Intentional benzocaine overdose 08/31/2016 Resolved Problems [...] CDT Respiratory Rate 18 02/09/2017 12:50 PM NURSING AIDE Oxygen Saturation 100% 10/25/2018 2:34 PM CDT Inhaled Oxygen Concentration - - Weight 47.6 kg (105 lb) 08/23/2019 11:29 AM CDT Height 162.6 cm (5' 4 ) 04/20/2019 3:10 PM NURSING AIDE Body Mass Index 18.02 04/20/2019 3:10 PM NURSING AIDE Plan of Treatment Health Maintenance Due Date [...] CDT Supervision of high-risk of young multigravida GLUCOSE CHALLENGE Routine 09/30/2016 8:5 3 AM CDT Supervision of high-risk of young multigravida HIV-1 HIV-2 ANTIBODY + HIV P24 AG PANEL Routine 09/30/2016 8:53 AM CDT Supervision of high-risk of young multigravida from Last 3 Months or Most Recently Relevant to Health Maintenance Results * CULTURE STREP B (12/16/2016 12:49 PM CDT) Culture Strep B Negative for beta-hemolytic Streptococcus Group B SAMANTHA 12/19/2016 9:48 AM CDT [facility] Microbiology MISCELLANEOUS SAMPLES / Unknown Collection / Unknown 12/16/2016 12:49 PM CDT 12/16/2016 12:57 PM CDT Aixa Shaikh APRN-LOOM CHANGEOVER OPERATOR LAB - MICROBI OLOGY ORDERABLES [facility] [address] [place] [phone] * HIV-1 HIV-2 ANTIBODY + HIV P24 AG PANEL (09/30/2016 8:53 AM CDT) HIV1/2 Ab + P24 Ag Non Reactive Non Reactive 09/30/2016 5:26 PM CDT [facility] Blood BLOOD SPECIMEN / Unknown Venipuncture / Unknown 09/30/2016 8:53 AM CDT 09/30/2016 9:42 AM CDT Narrative [facility] - 09/30/2016 5:26 PM CDT No Laboratory evidence of HIV infection. Monique Merino MD LAB - CHEMISTRY DANIEL MEJIAS [facility] [address] [place] [address] * GLUCOSE CHALLENGE (09/30/2016 8:53 AM CDT) [facility] Glucose Challenge 94 64 - 140 mg/dL 09/30/2016 10:11 AM CDT [facility] Glucose Challenge Time 09/30/2016 10:11 AM CDT [facility] Blood BLOOD SPECIMEN / Unknown Venipuncture / Unknown 09/30/2016 8:53 AM CDT 09/30/2016 9:42 AM CDT Monique Merino MD LAB - CHEMISTRY DANIEL MEJIAS [facility] [address] [place] [address] from Last 3 Months or Most Recently Relevant to Health Maintenance Advance Directives * Full Code (Latest Code Status on File) Date Activated Date Inactivated Comments 12/28/2016 12:20 PM 12/31/2016 2:03 PM * Full Code Date Activated Date Inactivated Comments 08/31/2016 4:43 AM 09/01/2016 3:59 PM Care Teams Coil Cutter Relationship Specialty Start Date End Date Shilpa Perez PA-C [address] [place] [phone] PCP - General Physician Audio Tape Librarian 10/01/20
[2024-05-23 19:54] LABS: Basophils Percent Auto 0.4 % (0.2-1.2); Eosinophils Absolute Auto 0.1 K/mm3 (0-0.3); Eosinophils Percent Auto 0.9 % (0-4.4); Hematocrit 32.4 % (37.0-47.0); Hemoglobin 10.6 g/dL (12.0-15.0); Immature Granulocyte Absolute 0.23 K/mm3 (0.00-0.031); Immature Granulocyte Percent A 2.2 % (0-0.5); Lymphocytes Absolute Auto 2.18 K/mm3 (0.9-3.2); Lymphocytes Percent Auto 20.7 % (18.3-44.2); Mean Corpuscular HGB Conc 32.7 g/dl (32-36); Mean Corpuscular Hemoglobin 29.3 pg (26-34); Mean Corpuscular Volume 89.5 fl (80-100); Mean Platelet Volume 9.3 fl (7.4-10.4); Monocytes Absolute Auto 0.7 K/mm3 (0.1-0.6); Monocytes Percent Auto 6.8 % (2.6-8.5); Neutrophils Absolute Auto 7.3 K/mm3 (1.3-6.7); Platelet Count Result 238 k/mm3 (150-375); Red Blood Count 3.62 M/mm3 (4.2-5.4); Red Cell Distribution Width 15.3 % (11.5-14.5); White Blood Count 10.5 K/mm3 (4.5-10.0)
[2024-05-23 19:55] LABS: Add Urine Microscopic? NO; Appearance Urine Clear (Clear); Bilirubin Urine Negative (Negative); Blood Urine Negative (Negative); Color Urine Yellow (Yellow); Glucose Urine UA Negative (Negative); Ketones Urine Negative (Negative); Leukocyte Esterase Ur Negative LEU/UL (Negative); Nitrate Urine Negative (Negative); Protein Urine Negative (Negative); Specific Grav Ur 1.011 (1.001-1.035); Urobilinogen Urine 0.2 mg/dL (<2.0); pH Urine 7.5 (5.0-9.0)
[2024-05-23 20:02] LABS: Creatinine Urine 36.6 mg/dL; Total Protein Urine Random 11 mg/dL
[2024-05-23 20:05] LABS: Alanine Aminotransferase 17 U/L (6-35); Albumin Level 3.6 g/dL (3.5-5.1); Alkaline Phosphatase 152 U/L (38-126); Anion Gap 9 mmol/L (4-12); Aspartate Amino Transferase 25 U/L (14-36); Bilirubin,Total 0.4 mg/dL (0.2-1.3); Blood Urea Nitrogen 7 mg/dL (7-17); Calcium 8.8 mg/dL (8.4-10.2); Carbon Dioxide 21 mmol/L (22-30); Chloride 104 mmol/L (98-107); Estimated Glomerular Filt Rate > 60; Glucose 120 mg/dL (65-110); Potassium 3.6 mmol/L (3.4-5.0); Sodium 134 mmol/L (137-145); Uric Acid 4.9 mg/dL (2.5-7.5)
== END 2024-05-23 20:39 | disposition home or self-care (01) ==
LOC: ANHOBOP 19:25 → ANHLDR 19:26
PROVIDERS: Advanced Practice Midwife; Visit Provider Obstetrics & Gynecology
DX: O13.9 Gestational [pregnancy-induced] hypertension without significant proteinuria, unspecified trimester (principal); Z3A.00 Weeks of gestation of pregnancy not specified
CPT/HCPCS: 36415; 59025; 80053; 81003; 82570; 84156; 84550; 85025

== ENCOUNTER 2024-05-25 09:53 | Inpatient (IN) | payer OTHER, SELFPAY ==
[2024-05-25] VITALS (83 sets, daily range): BP systolic 79–148; BP diastolic 41–108; PULSE 57–112; RESP 14–18; TEMP 36.6–37; O2SAT 87–100; BMI 33.3
--- NOTE | ~2024-05-25 | CT_ITS ---
CLINICAL INDICATION: Right lower quadrant pain following earlier today COMPARISON: None. TECHNIQUE: Multiple contiguous axial images of the abdomen and pelvis were performed following the ad ministration of with 100 mL Omnipaque-350 intravenous contrast The dose-length product (DLP) was 714.09 mGy-cm. Automated exposure control and iterative reconstruction technique were employed. FINDINGS/OBSERVATIONS: Visualized lower thorax: The bilateral lung bases are clear. The heart is of normal size, without pericardial effusion. Small hiatal hernia is present. Liver: The liver demonstrates homogeneous enhancement and is enlarged, measuring 20 cm in longitudinal dimen doron. Gallbladder and biliary system: The gallbladder is only minimally distended, and otherwise unremarkable. Pancreas: The pancreas enhances homogeneously without ductal dilatation. Spleen: The spleen enhances homogeneously and is not enlarged. Kidneys: The bilateral kidneys enhance symmetrically without hydronephrosis or renal calculi. Adrenal glands: Unremarkable. Gastrointestinal tract: Trace fecal stasis within the colon. Appendix: The appendix is not definitively visualized. However, no pericecal inflammatory change is identified suggest the presence of acute appendicitis. Vasculature: Unremarkable. Lymph nodes: No pathologically enlarged or morphologically suspicious lymph nodes within the retroperitoneum or at the root of the mesentery. Pelvic structures: The bladder is decompressed with a Mcknight catheter. Air within the bladder, likely secondary to instrumentation. The uterus is enlarged and demonstrates air and fluid within the endometrial canal, to be expected ho urs after . Body wall and musculoskeletal: Small fat-containing umbilical hernia. No significant degenerative disease within the lower thoracic or lumbosacral spine. IMPRESSION: Expected perioperative appearance of the uterus. Air within the bladder with Mcknight catheter in position. Air and fluid within the abdomen, consistent with recent perioperative state Reviewed, dictated and finalized at location A.
--- OUTSIDE RECORDS SUMMARY | 2024-05-25 10:19 | XMS_ITS | Clinical Summary ---
Author Organization [facility] Address [address] [place] [address] Care Team Providers Care Research Management Associate Name Role Phone Shilpa Perez Primary Care Provider [phone] Allergies No known active allergies Medications No [...] Plan of Treatment Not on file Insurance [facility] Care Teams Research Management Associate Relationship Specialty Start Date End Date Shilpa Perez PA [address] [place] [address] PCP - General Physician Insurance Agency Manager 09/25/20
--- OUTSIDE RECORDS SUMMARY | 2024-05-25 10:19 | XMS_ITS | Clinical Summary ---
Author Organization [facility] Address [address] [place] [address] Care Team Providers Care Ship Manager Name Role Phone Shilpa Perez PA-C Primary Care Provider + Source Comments [facility],non-owned Affiliates and Associated Physician Practices is amultiple site organization consisting of ambulatory clinics and hospital sitesin [place], [place], [place] and [place]. This disclosure is being madepursuant to the Care Everywhere program and may not contain all information available regarding this patient. Last updated 17.[facility] Allergies Active Allergy Reactions Criticality Noted Date [...] CDT Respiratory Rate 18 02/09/2017 12:50 PM REPAIRER SHOE STICKS Oxygen Saturation 100% 10/25/2018 2:34 PM CDT Inhaled Oxygen Concentration - - Weight 47.6 kg (105 lb) 08/23/2019 11:29 AM CDT Height 162.6 cm (5' 4 ) 04/20/2019 3:10 PM REPAIRER SHOE STICKS Body Mass Index 18.02 04/20/2019 3:10 PM REPAIRER SHOE STICKS Plan of Treatment Health Maintenance Due Date [...] Group B SAMANTHA 12/19/2016 9:48 AM CDT [facility] Microbiology MISCELLANEOUS SAMPLES / Unknown Collection / Unknown 12/16/2016 12:49 PM CDT 12/16/2016 12:57 PM CDT Aixa Shaikh APRN-CAT SCANNER OPERATOR LAB - MICROBI OLOGY ORDERABLES [facility] [address] [place] [phone] * HIV-1 HIV-2 ANTIBODY + HIV P24 AG PANEL (09/30/2016 8:53 AM CDT) HIV1/2 Ab + P24 Ag Non Reactive Non Reactive 09/30/2016 5:26 PM CDT [facility] Blood BLOOD SPECIMEN / Unknown Venipuncture / Unknown 09/30/2016 8:53 AM CDT 09/30/2016 9:42 AM CDT Narrative [facility] - 09/30/2016 5:26 PM CDT No Laboratory evidence of HIV infection. Monique Merino MD LAB - CHEMISTRY DANIEL MEJIAS [facility] [address] [place] [id number] * GLUCOSE CHALLENGE (09/30/2016 8:53 AM CDT) [facility] Glucose Challenge 94 64 - 140 mg/dL 09/30/2016 10:11 AM CDT [facility] Glucose Challenge Time 09/30/2016 10:11 AM CDT [facility] Blood BLOOD SPECIMEN / Unknown Venipuncture / Unknown 09/30/2016 8:53 AM CDT 09/30/2016 9:42 AM CDT Monique Merino MD LAB - CHEMISTRY DANIEL MEJIAS [facility] [address] [place] [address] from Last 3 Months or Most Recently Relevant to Health Maintenance Advance Directives * Full Code (Latest Code Status on File) Date Activated Date Inactivated Comments 12/28/2016 12:20 PM 12/31/2016 2:03 PM * Full Code Date Activated Date Inactivated Comments 08/31/2016 4:43 AM 09/01/2016 3:59 PM Care Teams Ship Manager Relationship Specialty Start Date End Date Shilpa Perez PA-C [address] [place] [phone] PCP - General Physician Office Assistance 10/01/20
--- OUTSIDE RECORDS SUMMARY | 2024-05-25 10:19 | XMS_ITS | Clinical Summary ---
Author Organization [facility] Address [address] [place] [address] Care Team Providers Care Ground Operations Supervisor Name Role Phone None, Provider MD Primary [...] - 05/16/2024 8:40 AM CDT Hospital Encounter [facility] [address] [facility] [place] [address] Gamal Payton MD Discharge Disposition: [...] place to sleep or slept in a halfway (including now)? 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 Gender Identity Female 10/05/2021 8:58 PM CDT [...] YELLOW 05/16/2024 7:23 AM CDT [facility] TRANSPARENCY CLEAR 05/16/2024 7:23 AM CDT [facility] SPECIFIC GRAVITY (U) 1.025 1.000 - 1.025 05/16/2024 7:23 AM CDT [facility] U PH 7.0 5.0 - 8.0 05/16/2024 7:23 AM CDT [facility] LEUKOCYTES (U) NEGATIVE NEGATIVE 05/16/2024 7:23 AM CDT [facility] NITRITES NEGATIVE NEGATIVE 05/16/2024 7:23 AM CDT [facility] PROTEIN RANDOM (U) NEGATIVE NEGATIVE 05/16/2024 7:23 AM CDT [facility] GLUCOSE (U) NEGATIVE NEGATIVE 05/16/2024 7:23 AM CDT [facility] KETONES MG/DL (U) NEGATIVE NEGATIVE 05/16/2024 7:23 AM CDT [facility] UROBILINOGEN 0.2 <1.0 EU/DL 05/16/2024 7:23 AM CDT [facility] BILIRUBIN (U) NEGATIVE NEGATIVE 05/16/2024 7:23 AM CDT [facility] BLOOD (U) NEGATIVE NEGATIVE 05/16/2024 7:23 AM CDT [facility] WBC/HPF NONE SEEN(A) 0 - 5 /HPF 05/16/2024 7:23 AM CDT [facility] EPI/LPF FEW /LPF 05/16/2024 7:23 AM CDT [facility] BACTERIA (U) TRACE /HPF 05/16/2024 7:23 AM CDT [facility] URINE SPECIMEN OBTAINED BY CLEAN CATCH PROCEDURE / Unknown 05/16/2024 6:56 AM CDT Gamal Payton MD URINE ORDERABLES Final Result [facility] [address] [place] [id number], * HEPATITIS C ANTIBODY (08/21/2021) HEPATITIS C AB Negative Doc [facility] Final Result from Last 3 Months or Most Recently Relevant to Health Maintenance Additional Health Concerns Infection Onset Date Last Indicated MRSA 03/08/2018 03/08/2018 Insurance DAVILA Advance Directives * Full Code (Latest Code Status on File) Date Activated Date Inactivated Comments 10/17/2021 5:01 AM 10/20/2021 7:06 PM Care Teams Ground Operations Supervisor Relationship Specialty Start Date End Date None, Provider, PCP - General 10/05/21
--- OUTSIDE RECORDS SUMMARY | 2024-05-25 10:19 | XMS_ITS | Referral Summary ---
Author Organization [facility] Address [address] [place] [address] Care Team Providers Care Greenskeeper Laborer Name Role Phone Shilpa Perez Primary Care Provider [phone] Allergies No known active allergies Medications No [...] Plan of Treatment Not on file Insurance [facility] Care Teams Greenskeeper Laborer Relationship Specialty Start Date End Date Shilpa Perez PA [address] [place] [phone] PCP - General Physician Hemstitcher 09/25/20
[2024-05-25] MEDS: ACETAMINOPHEN 500 MG TABLET 1000 MG PO (10:33)
[2024-05-25] MEDS: LACTATED RINGERS 1,000 ML 125 ML IV CONT (10:39)
--- NOTE | 2024-05-25 10:46 | LDADM ---
This patient, Darlin Silvestre, was admitted to Labor/Delivery/Recovery 119 on 05/25/24 at 09:53. Plans for labor, pain management and were discussed with patient. Patient/family oriented to hospital policies and general routines including ID bracelet, bed and alarms, visiting hours, pain management, procedures, bathroom and other care routines, personal items, smoking policy, room service/diet and guest tray routines, security routines, and visiting hours. Patient/Family are encouraged to report perceived risks to care and to ask questions if they do not understand what they are told or what they should do. See [facility]BIX for further documentation.
[2024-05-25 11:18] LABS: Syphilis IgG/IgM Antibody Negative (Negative)
[2024-05-25 11:31] LABS: HIV 1/2 Ab P24 Ag Result Negative (Negative)
[2024-05-25] MEDS: ONDANSETRON INJ 4 MG/2 ML VIAL IV PUSH (11:42)
[2024-05-25] MEDS: FAMOTIDINE 20 MG/2 ML VIAL IV PUSH (11:42)
--- NOTE | 2024-05-25 11:58 | P.PNAN_ITS ---
Anes - Initial Pre Proc Eval Procedure: Operation Date: 05/25/24 12:00 Proposed Procedures p Repeat Section - Kenny Urias MD Date/Time: 05/25/24 11:58 Surgeon: Korey Campa MD Pre Op Diagnosis: C/S Patient Data Age: 33 Gender: F Height: 1.63 m Weight: 88 kg Last Vital Signs Pulse 109 H 05/25/24 11:46 BP 79/41 L 05/25/24 11:46 O2 Del Method Room Air 05/25/24 10:46 Allergies Allergy/AdvReac Type Severity Reaction Status Date / Time codeine Allergy Headache Verified 05/25/24 10:48 hydroxyzine Allergy Other Verified 05/25/24 10:48 Home Medications ?Medication ?Instructions ?Recorded ?Confirmed ?Type ferrous sulfate 325 mg (65 mg 325 mg PO DAILY 05/09/24 05/25/24 History iron) tablet (Feosol) prenat.vits,babar,bjx-igez-zxvbt tablet 05/09/24 History Laboratory Tests 05/25/24 10:18 Syphilis IgG/IgM Ab Negative (Negative) HIV 1&2 Ab/P24 Ag 4thGn Negative (Negative) Patient hx anesthesia problems: none Family hx anesthesia problems: none Results Review: All pre-operative results and documents have been reviewed as part of the pre- operative evaluation. [facility] Family History Family History Grandparent Leukemia Diabetes mellitus Cerebrovascular accident Social History Social History Smoking status: Never smoker Substance use: never Do You Feel Safe in your Home?: Yes Lack of Transportation: No Lack of Food: Never True Current Housing: I Have Housing Concerned About Future Housing: No Difficulty Paying Gas/Electric Bills: No Difficulty Paying for Meds: No Currently Unemployed: No Education: High School Diploma/GED Difficulty w/ Childcare or Family Care: No Spiritual care concerns: No Anes - Eval Final PreProcedure Day of Procedure 05/25/24 11:58 Patient weight: obese Lungs: normal air movement Airway: Mallampati scale class II Neurological: alert and oriented Last oral intake: >/= 8 hours ASA classification: II Emergent: no Anesthetic plan: proceed Anesthesia type and monitoring: regional spinal and standard monitoring Results Review: All pre-operative results and documents have been reviewed as part of the pre- operative evaluation. Plts 238K. BMI 33. Informed Consent: The patient's anesthetic plan and its attendant risks and benefits were discussed with the patient/family/POA. Questions were solicited and answers provided to the satisfaction of the patient/family/POA.
--- NOTE | 2024-05-25 12:11 | P.HP_ITS ---
H&P: HPI History of Present Illness Date/Time: 05/25/24 12:11 Chief Complaint: Term Narrative: This patient is a 33-year-old female with a term and previous deliveries. We have agreed to perform repeat delivery. She understands risks, benefits, and alternatives. She has completed the informed consent process is ready to proceed. The patient understands the details of the procedure. The procedure has been explained in detail. She understands the risks. She understands that injuries may occur that result in hospitalization, more surgery, and severe illness. She understands risk of hemorrhage and infection. She denies any chest pain or shortness of breath. She denies any nausea, vomiting, fever, chills. Review of Systems Review of Systems: All systems reviewed & are unremarkable except as noted in HPI and below Constitutional: Constitutional: Denies chills, Denies fatigue, Denies fever(s) and Denies weakness Eyes: Eyes: Denies blurry vision, Denies change in vision, Denies loss of peripheral vision, Denies loss of vision, Denies other visual disturbances and Denies eye pain ENT: Denies vertigo, Denies dizziness, Denies hearing loss, Denies mouth pain, Denies nasal obstruction, Denies neck mass and Denies neck pain Cardiovascular: Cardiovascular: Denies chest pain, Denies diaphoresis, Denies syncope, Denies leg edema and Denies dyspnea Respiratory: Respiratory: Denies chest congestion, Denies cough, Denies hemoptysis, Denies dyspnea and Denies wheezing Gastrointestinal: Gastrointestinal: Denies abdominal pain, Denies constipation, Denies diarrhea, Denies nausea and Denies vomiting Genitourinary: Genitourinary: Denies hematuria, Denies change in libido, Denies nocturia, Denies genital lesions, Denies flank pain and Denies urinary urgency Musculoskeletal: Musculoskeletal: Denies abnormal gait, Denies back pain, Denies myalgias, Denies arthralgias, Denies joint swelling, Denies muscle weakness and Denies neck pain Integumentary/Breasts: Skin/Breast: Denies swelling, Denies breast pain, Denies breast mass, Denies dry skin, Denies nipple discharge, Denies unusual bruising and Denies jaundice Neurologic: Denies Neuro-related abnormal movements, Denies Abnormal speech present, Denies abnormal gait, Denies behavioral changes, Denies confusion, Denies vertigo, Denies dizziness, Denies syncope, Denies loss of vision, Denies memory loss, Denies convulsions and Denies weakness Psychiatric: Psychiatric: Denies abnormal sleep pattern, Denies behavioral changes, Denies change in libido, Denies confusion, Denies depression, Denies anhedonia and Denies memory loss Endocrine: Endocrine: Reports no additional endocrine complaints, Denies change in libido and Denies fatigue Hematologic/Lymphatic: Hematologic/Lymphatic: Reports no additional hematologic/lymphatic complaints Allergic/Immunologic: Allergic/Immunologic: Reports no additional allergic/immunologic complaints and Denies wheezing [facility] Family History Family History Grandparent Leukemia Diabetes mellitus Cerebrovascular accident Social History Social History Smoking status: Never smoker Substance use: never Do You Feel Safe in your Home?: Yes Lack of Transportation: No Lack of Food: Never True Current Housing: I Have Housing Concerned About Future Housing: No Difficulty Paying Gas/Electric Bills: No Difficulty Paying for Meds: No Currently Unemployed: No Education: High School Diploma/GED Difficulty w/ Childcare or Family Care: No Spiritual care concerns: No Meds Home Medications and Allergies Home Medications ?Medication ?Instructions ?Recorded ?Confirmed ?Type ferrous sulfate 325 mg (65 mg 325 mg PO DAILY 05/09/24 05/25/24 History iron) tablet (Feosol) prenat.vits,babar,hsh-fgij-uhriy tablet 05/09/24 History Allergies Allergy/AdvReac Type Severity Reaction Status Date / Time codeine Allergy Headache Verified 05/25/24 10:48 hydroxyzine Allergy Other Verified 05/25/24 10:48 Vital Signs Vital Signs - 24 hr 05/25/24 10:38 05/25/24 10:45 05/25/24 10:46 Pulse Rate 97 98 Blood Pressure 134/74 122/67 Oxygen Delivery Room Air 05/25/24 11:00 05/25/24 11:16 05/25/24 11:30 Pulse Rate 102 H 112 H 95 Blood Pressure 139/84 111/81 120/71 Oxygen Delivery 05/25/24 11:46 05/25/24 12:00 Pulse Rate 109 H 106 H Blood Pressure 79/41 L 106/72 Oxygen Delivery Exam Const: General: cooperative, healthy appearing, comfortable and no acute distress Orientation/consciousness: oriented to person, oriented to place and oriented to time HENMT: Head: normal to inspection Ears: external ears normal Face/Nose/Sinus: Normal external nose present and normal facial exam Face and sinus: normal facial exam Eyes: General: appearance normal, both eyes and all related structures Neck: Neck: normal visual inspection, trachea midline and supple Resp: Auscultation: clear to auscultation bilaterally, no crackles, no rales, no rhonchi and no wheezes Cardio: Rate: regular rate Rhythm: regular rhythm Heart sounds: no click, no murmurs and no rubs GI: GI Palp: No abdominal tenderness, No Soft to palpation, No Tenderness to palpation present (GI) and No Palpable mass present Auscultation: normal bowel sounds Skin: General skin exam: normal color and no rashes or lesions noted Neuro: General: oriented to person, oriented to place and oriented to time Extrem: General: normal to inspection, no joint enlargement, no clubbing, cyanosis or edema, no pedal edema and no calf tenderness Psych: Appearance: grossly normal Mental Status: mental status grossly normal Speech and movement: Normal speech and movement present Assessment and Plan Assessment and plan (1) Previous delivery, delivered: Code(s): O34.219 - Maternal care for unspecified type scar from previous delivery Status: Acute Plan This patient is a 33-year-old female with a term and previous deliveries. We have agreed to perform repeat delivery. She understands risks, benefits, and alternatives. She has completed the informed consent process is ready to proceed.
--- NOTE | 2024-05-25 12:13 | WPDHPUPDATE1 ---
History and Physical Update Update Date/Time: 05/25/24 12:13 History and Physical has been reviewed, including an updated exam of the patient. There are NO changes in the patient's condition. Risks, benefits, and alternatives have been discussed and questions answered. Patient agrees to proceed with procedure.
[2024-05-25] MEDS: ceFAZolin 2 GM/D5W 50 ML 2 GM/50 ML BAG IVPB (12:15)
--- NOTE | 2024-05-25 13:34 | P.PCNOB_ITS ---
OB - Delivery Note Procedure Delivery date: 05/25/24 Pre-op diagnosis: Previous Delivery (Four previous ) Post-op Diagnosis: Same (Incidental Cystotomy) Procedure Performed: Repeat Surgeon: Kenny Urias MD Anesthesia type: Spinal Description of Procedure/Findings: The patient was taken the operating room.? She was prepped and draped in dorsal supine position with a leftward tilt.? This was done after spinal anesthetic was applied.? A low-transverse skin incision was made and carried down till of the fascia with the knife.? The fascial incision was made with the knife.? The fascial incision was extended laterally with Rivas scissors. Throughout the started the surgery from the fascia to the uterine wall there was dense scar tissue and the anatomy was distorted. Careful dissection was performed. Entering the abdomen as high as possible during the dissection and then moving inferiorly to try to separate the bladder off of the uterus. The bladder was scarred to the uterus above the previous low-transverse incision. The fascia was tented upward superiorly and inferiorly the rectus muscles were dissected off bluntly.? The rectus muscles were the midline.? The preperitoneal fat and peritoneum were dissected open bluntly at the superior aspect of the rectus muscles.? The peritoneal incision was extended superior and inferior with good position of bladder.? The uterine incision was made with a scalpel down to the level of the amniotic cavity.? The amniotic ca vity was entered bluntly.? The infant was delivered.? The cord was clamped and cut and the infant was handed off to waiting pediatric staff.? Cord bloods were obtained.? The placenta was removed manually.? The uterus was exteriorized.? The uterus was cleared of all clots, debris and membranes.? The uterus was closed in 0 Vicryl running lock fashion.? An imbricating over a was placed along the inci doron line as well. Incidental cystotomy was noted this was likely occurred while dense scar tissue from the lower uterine segment. The bladder was closed and 2 imbricating layers. The 1st layer was a 3-0 Vicryl. Second row of sutures, running sutures, imbricated the initial layer this was completed with 2-0 Vicryl. The uterus was returned to the abdomen.? The gutters were cleared of all clots and debris.? The fascia was closed with 0 Vicryl running fashion.? The subcutaneous tissue was irrigated pinpoint bleeders were cauterized.? The skin was closed with subcuticular absorbable ning.? The skin incision line was covered with glue.? The patient tolerated the procedure well.? She has taken recovery room in stable condition.? Sponge lap and needle counts were correct x2.? Complications: Other complications (Incidental cystotomy) Condition: Stable
[2024-05-25] MEDS: OXYTOCIN 30 UNITS/NS 500 ML 30 UNITS/500 ML BAG 125 UNITS IV CONT (13:45)
[2024-05-25] MEDS: MORPHINE SULFATE (*CRX) 2 MG/ML INJ IV PUSH ×4 (14:15→16:41)
[2024-05-25] MEDS: diphenhydrAMINE HCl INJ 50 MG/ML VIAL 25 MG IV PUSH ×2 (14:19→18:28)
[2024-05-25] MEDS: LIDOCAINE 5% PATCH 1 PATCH TRANSDERM (14:30)
--- NOTE | 2024-05-25 14:33 | PC.NURSE ---
1430--Report to Dr. Urias re: bloody urine in the bladder, and pt. in extreme pain 11/30. No orders received. Asked MD if he would like a urology consult, no order for consult at this time.
[2024-05-25 14:55] LABS: Amphetamine Screen Urine Negative (Negative); Barbiturate Screen Urine Negative (Negative); Benzodiazepines Screen Urine Negative (Negative); Cannabinoid Screen Urine Negative (Negative); Cocaine Screen Urine Negative (Negative); Methadone Screen Urine Negative (Negative); Opiate Screen Urine Negative (Negative); Phencyclidine Screen Urine Negative (Negative)
--- NOTE | 2024-05-25 14:55 | PC.NURSE ---
[id number]--Phone call to Dr. Urias re: increased pain and no relief from any interventions given to pt. Pt. is rating pain 10/10, abdomen tender to touch, specifically in RLQ. Request for MD to come see pt.
[2024-05-25] MEDS: HYDROmorphone HCL INJ (*CRX) 1 MG/ML SYR IV PUSH (15:04)
[2024-05-25] MEDS: diazePAM INJ (*CRX) 10 MG/2 ML SYRINGE 5 MG IV PUSH (15:21)
--- NOTE | 2024-05-25 15:30 | PM.OBPNVD ---
OB - PN: Subj Subjective Date/time seen: 05/25/24 15:30 Interval history: Come to evaluate the patient for disproportionate postoperative pain. She was comfortable at that time. Her uterus is deviated to the right. Her uterus is at her umbilicus. Incision is normal in appearance. There is no hematoma evident. Her abdomen is soft. There is increased tenderness in right lower quadrant. She reports more pain in this area. She is stable. Her vitals are unchanged since the surgery. The the urine from the Mcknight catheter is blood tinged. Will continue to observe. Administer 5 mg Valium. Consider imaging later. OB - PN: Obj Data Labs Labs: Laboratory Results - last 24 hr 05/25/24 05/25/24 05/25/24 10:18 13:37 14:10 Urine Opiates Screen Negative Urine Methadone Screen Negative Ur Barbiturates Screen Negative Ur Phencyclidine Scrn Negative Ur Amphetamine Screen Negative U Benzodiazepines Scrn Negative Urine Cocaine Screen Negative U Cannabinoids Screen Negative Syphilis IgG/IgM Ab Negative HIV 1&2 Ab/P24 Ag 4thGn Negative Blood Type O Positive Antibody Screen Negative OB - PN A/P Assessment and Plan (1) Postoperative abdominal pain: Code(s): R10.9 - Unspecified abdominal pain; G89.18 - Other acute postprocedural pain Status: Acute Assessment and Plan: Come to evaluate the patient for disproportionate postoperative pain. She was comfortable at that time. Her uterus is deviated to the right. Her uterus is at her umbilicus. Incision is normal in appearance. There is no hematoma evident. Her abdomen is soft. There is increased tenderness in right lower quadrant. She reports more pain in this area. She is stable. Her vitals are unchanged since the surgery. The the urine from the Mcknight catheter is blood tinged. Will continue to observe. Administer 5 mg Valium. Consider imaging later. Time Spent With Patient Time: Total time spent is greater than 50% in coordination of care (as documented) at patient's floor/unit and/or counseling patient:
--- NOTE | 2024-05-25 17:20 | SUR.PHASEI ---
Pt. transported off unit via stretcher for CT scan of abdomen with contrast
[2024-05-25] MEDS: KETOROLAC 15 MG/ML VIAL (*BKC) IV PUSH (18:26)
[2024-05-25] MEDS: ACETAMINOPHEN 325 MG TABLET 650 MG PO (18:28)
[2024-05-25] MEDS: DOCUSATE SODIUM 100 MG CAPSULE PO (18:44)
[2024-05-25] MEDS: DEXTROSE 5%/0.45% SOD CHL 1,000 ML 125 ML IV CONT (18:44)
[2024-05-25] MEDS: HYDROcodone/acetaminophen (*CRX) 5-325 MG TABLET 1 TAB PO (21:27)
[2024-05-26 00:30] VITALS: BP 118/64; PULSE 72; RESP 18; TEMP 36.6; O2SAT 99
[2024-05-26] MEDS: KETOROLAC 15 MG/ML VIAL (*BKC) IV PUSH ×2 (00:30→07:30)
[2024-05-26] MEDS: ACETAMINOPHEN 325 MG TABLET 650 MG PO ×4 (00:30→18:59)
[2024-05-26] MEDS: diphenhydrAMINE HCl CAP 25 MG CAPSULE PO ×2 (01:35→07:34)
[2024-05-26] MEDS: HYDROcodone/acetaminophen (*CRX) 5-325 MG TABLET 1 TAB PO ×3 (03:10→23:40)
[2024-05-26 05:23] LABS: Basophils Percent Auto 0.4 % (0.2-1.2); Eosinophils Absolute Auto 0.1 K/mm3 (0-0.3); Eosinophils Percent Auto 1.2 % (0-4.4); Hematocrit 30.2 % (37.0-47.0); Hemoglobin 9.7 g/dL (12.0-15.0); Immature Granulocyte Absolute 0.16 K/mm3 (0.00-0.031); Immature Granulocyte Percent A 1.5 % (0-0.5); Lymphocytes Absolute Auto 1.95 K/mm3 (0.9-3.2); Lymphocytes Percent Auto 18.2 % (18.3-44.2); Mean Corpuscular HGB Conc 32.1 g/dl (32-36); Mean Corpuscular Hemoglobin 28.9 pg (26-34); Mean Corpuscular Volume 89.9 fl (80-100); Mean Platelet Volume 9.4 fl (7.4-10.4); Monocytes Absolute Auto 0.9 K/mm3 (0.1-0.6); Monocytes Percent Auto 8.6 % (2.6-8.5); Neutrophils Absolute Auto 7.5 K/mm3 (1.3-6.7); Neutrophils Percent Auto 70.1 % (45.5-73.1); Platelet Count Result 204 k/mm3 (150-375); Red Blood Count 3.36 M/mm3 (4.2-5.4); Red Cell Distribution Width 15.8 % (11.5-14.5); White Blood Count 10.7 K/mm3 (4.5-10.0)
[2024-05-26 07:28] VITALS: BP 114/60; PULSE 95; RESP 16; TEMP 36.4
[2024-05-26] MEDS: MULTIVIT/MIN/PREN/FOL AC/IRON TABLET 1 TAB PO (07:31)
[2024-05-26] MEDS: POLYSACCHARIDE IRON COMPLEX 150 MG CAPSULE PO ×2 (07:31→16:45)
[2024-05-26] MEDS: DOCUSATE SODIUM 100 MG CAPSULE PO ×2 (07:31→16:45)
[2024-05-26] MEDS: SIMETHICONE 80 MG TAB.CHEW PO ×3 (07:31→16:45)
--- NOTE | 2024-05-26 10:59 | P.PNOB_ITS ---
OB - PN: Subj Subjective Date/time seen: 05/26/24 10:59 Patient comments: no complaints, pain well controlled, tolerating diet and flatus present OB - PN: Obj Data Labs 05/26/24 03:17 Labs: Laboratory Results - last 24 hr 05/25/24 05/25/24 05/25/24 10:18 13:37 14:10 WBC RBC Hgb Hct MCV MCH MCHC RDW Plt Count MPV Immature Gran % (Auto) Neut % (Auto) Lymph % (Auto) [place] % (Auto) Eos % (Auto) Baso % (Auto) Lymph # (Auto) [place] # (Auto) Eos # (Auto) Baso # (Auto) Abs Immat Gran (auto) Absolute Neuts (auto) Absolute Nucleated RBC Nucleated RBC % Urine Opiates Screen Negative Urine Methadone Screen Negative Ur Barbiturates Screen Negative Ur Phencyclidine Scrn Negative Ur Amphetamine Screen Negative U Benzodiazepines Scrn Negative Urine Cocaine Screen Negative U Cannabinoids Screen Negative Syphilis IgG/IgM Ab Negative HIV 1&2 Ab/P24 Ag 4thGn Negative Blood Type O Positive Antibody Screen Negative 05/26/24 03:17 WBC 10.7 H RBC 3.36 L Hgb 9.7 L Hct 30.2 L MCV 89.9 MCH 28.9 MCHC 32.1 RDW 15.8 H Plt Count 204 MPV 9.4 Immature Gran % (Auto) 1.5 H Neut % (Auto) 70.1 Lymph % (Auto) 18.2 L [place] % (Auto) 8.6 H Eos % (Auto) 1.2 Baso % (Auto) 0.4 Lymph # (Auto) 1.95 [place] # (Auto) 0.9 H Eos # (Auto) 0.1 Baso # (Auto) 0.0 Abs Immat Gran (auto) 0.16 H Absolute Neuts (auto) 7.5 H Absolute Nucleated RBC 0.000 Nucleated RBC % 0.0 Urine Opiates Screen Urine Methadone Screen Ur Barbiturates Screen Ur Phencyclidine Scrn Ur Amphetamine Screen U Benzodiazepines Scrn Urine Cocaine Screen U Cannabinoids Screen Syphilis IgG/IgM Ab HIV 1&2 Ab/P24 Ag 4thGn Blood Type Antibody Screen Imaging Radiologist's impression: Impressions Abdomen/Pelvis CT 05/25/24 18:18 IMPRESSION: Expected perioperative appearance of the uterus. Air within the bladder with Mcknight catheter in position. Air and fluid within the abdomen, consistent with recent perioperative state OB - PN A/P Plan day: 1 Comments: Post Op LTCS - no problems, routine recovery Time Spent With Patient Time: Total time spent is greater than 50% in coordination of care (as documented) at patient's floor/unit and/or counseling patient: Exam 2 Const: General: cooperative, healthy appearing, comfortable and no acute distress Resp: Auscultation: no crackles, no rales, no rhonchi and no wheezes Cardio: Rhythm: regular rhythm Heart sounds: no click and no murmurs GI: Inspection: non-distended Auscultation: normal bowel sounds Extrem: General: normal to inspection, no pedal edema and no calf tenderness
--- NOTE | 2024-05-26 12:45 | PC.NURSE ---
Introductions were made, then consulted with patient to assess needs related to . Discussed with mother her?plans to feed?her and the?experience so far. She states things are going well and she doesn't have any questions or concerns. Resources provided for inpatient and outpatient services with the feeding sheet, mom/baby guide and name written on the communication board. Mother voiced understanding of information and will call if there is a request for assistance. Reported to the Primary RN.
[2024-05-26] MEDS: IBUPROFEN 600 MG TABLET PO ×2 (13:25→18:59)
--- NOTE | 2024-05-26 16:52 | WPDANLDPN2 ---
Anes-Prog Note L&D Date/Time: 05/26/24 16:52 Comfortable throughout: section Neuraxial method: spinal Epidural/Spinal procedure site: clean & non-tender Neuro status: Neuro function grossly intact. Cardiovascular status: normal Respiratory status: normal Airway patency: baseline Mental status: baseline Post-Op hydration status: normal (catheter in place for 7 days) Vital Signs: Last Vital Signs Temp 36.4 C L 05/26/24 07:28 Pulse 95 05/26/24 07:28 Resp 16 05/26/24 07:28 BP 114/60 05/26/24 07:28 Pulse Ox 99 05/26/24 00:30 O2 Del Method Room Air 05/26/24 00:30 Pain score (VAS): 3 I/O: Intake & Output 05/26/24 05/26/24 05/26/24 07:59 15:59 23:59 Intake Total 900 1000 Output Total 1000 2500 Balance -100 -1500 Post-procedural complaints: none Patient feedback: Patient satisfied with anesthetic care.
--- NOTE | 2024-05-26 16:53 | WPDANLDNPN2 ---
Anes-Prog Note L&D-Neuraxial Date/Time: 05/26/24 16:53 Neuraxial medications: intrathecal PF morphine Opiod-related complaints: none Patient feedback: Patient satisfied with post-operative pain management.
[2024-05-26 19:00] VITALS: BP 127/83; PULSE 92; RESP 18; TEMP 36.7; O2SAT 100
[2024-05-26] MEDS: HYDROcodone/acetaminophen (*CRX) 10-325 MG TABLET 1 TAB PO (20:00)
[2024-05-27] MEDS: IBUPROFEN 600 MG TABLET PO ×3 (01:00→14:51)
[2024-05-27] MEDS: ACETAMINOPHEN 325 MG TABLET 650 MG PO ×3 (01:00→14:51)
[2024-05-27] MEDS: HYDROcodone/acetaminophen (*CRX) 5-325 MG TABLET 1 TAB PO ×4 (04:05→14:51)
[2024-05-27 07:30] VITALS: BP 117/65; PULSE 84; RESP 16; TEMP 36.4
[2024-05-27] MEDS: DOCUSATE SODIUM 100 MG CAPSULE PO (07:35)
[2024-05-27] MEDS: POLYSACCHARIDE IRON COMPLEX 150 MG CAPSULE PO (07:35)
[2024-05-27] MEDS: MULTIVIT/MIN/PREN/FOL AC/IRON TABLET 1 TAB PO (07:35)
[2024-05-27] MEDS: SIMETHICONE 80 MG TAB.CHEW PO (07:35)
--- NOTE | 2024-05-27 09:45 | P.PNOB_ITS ---
OB - PN: Subj Subjective Date/time seen: 05/27/24 09:45 Patient comments: no complaints, pain well controlled, incisional pain, tolerating diet and flatus present OB - PN: Obj Data Labs 05/26/24 03:17 OB - PN A/P Plan day: 2 Plan: routine care Comments: POD#2 LTCS - no problems, Time Spent With Patient Time: Total time spent is greater than 50% in coordination of care (as documented) at patient's floor/unit and/or counseling patient: Exam 2 Const: General: comfortable, no acute distress and alert Resp: Effort & Inspection: normal respiratory effort Auscultation: no crackles, no rales and no rhonchi Cardio: Rate: regular rate Heart sounds: no click, no murmurs and no rubs GI: Inspection: non-distended Auscultation: normal bowel sounds Other: Incision - CDI Extrem: General: normal to inspection, no pedal edema and no calf tenderness
--- NOTE | 2024-05-27 09:45 | P.DS_ITS ---
DS: Admitting Diagnosis Discharge Date 05/27/24 Admitting Diagnosis term DS: Discharge Diagnosis Discharge Diagnosis (1) delivery delivered: Code(s): O82 - Encounter for delivery without indication Status: Acute OB - DS: Summary OB Procedures : None OB Procedures Intrapartum: OB Procedures: : None Peripartum Data Procedures: Procedures Operation Date: 05/25/24 12:00 Actual Procedure Side Surgeon p Repeat Section Not Applicable Kenny Urias MD Time Spent with Patient Time attestation: Total time spent providing and/or coordinating discharge services: Discharge Plan Discharge Discharging Clinician: Kenny Urias Activity: pelvic rest Diet: regular Patient Language: Slovenian Discharge Medications: New hydrocodone-acetaminophen 5-325 mg tablet 1 - 2 tablet PO Q6H PRN (Reason: pain) Qty: 25 0RF Continued prenat.vits,babar,djn-bjaf-geyvc Tablet ferrous sulfate [Feosol] 325 mg (65 mg iron) tablet 325 mg PO DAILY Date of admission: 05/25/24 09:53 Primary Care Provider: UNKNOWN,DOCTOR Admitting Provider: Korey Campa Attending physician on admission: Korey Campa Condition: Stable
[2024-05-29 11:22] VITALS: BP 120/71; PULSE 87; RESP 18; TEMP 36.6; O2SAT 100
== END 2024-05-27 16:00 | disposition home or self-care (01) | DRG 540 ==
LOC: ANHOB2 05-27 09:53 → ANHLDR 05-29 09:10
PROVIDERS: Admitting Provider Obstetrics & Gynecology; Visit Provider Obstetrics & Gynecology
PROC: 10D00Z1 Extraction of Products of Conception, Low, Open Approach (ICD-10-PCS; CPT 59514; principal; 2024-05-25 12:00)
DX: O34.211 Maternal care for low transverse scar from previous cesarean delivery (principal); O69.81X0 Labor and delivery complicated by cord around neck, without compression, not applicable or unspecified; Z37.0 Single live birth; Z3A.39 39 weeks gestation of pregnancy; O71.5 Other obstetric injury to pelvic organs; N99.71 Accidental puncture and laceration of a genitourinary system organ or structure during a genitourinary system procedure
CPT/HCPCS: 36415; 59025; 74177; 80307; 85025; 86593; 86703; 86850; 86900; 86901; A9270; G0432; J0690; J1171; J1200; J1885; J2270; J2274; J2405; J2590; J3360; J7120; Q9967